=== PATIENT | male | born 1960 | race Caucasian/White ===

== ENCOUNTER 2019-07-25 16:32 | Observation (INO) | payer MEDICAID, OTHER ==
[~2019-07-25] VITALS: Ht 172.7 cm; Wt 72.4 kg
[~2019-07-25 16:32] MED LIST: QTP25T PO; QUET50TA PO; SERT50TA PO
[2019-07-25] MEDS ORDERED: RT-ALBUTEROL/IPRATROPIUM 3 ML (DUONEB) VIAL ONE (16:47)
[2019-07-25] MEDS ORDERED: RT-ALBUTEROL SULF 2.5 MG/3 ML PRE-MIX VIAL ONE (16:56)
[2019-07-25] MEDS ORDERED: LACTATED RINGERS 1,000 ML IV ONE (16:58)
[2019-07-25] MEDS ORDERED: RT-ALBUTEROL/IPRATROPIUM 3 ML (DUONEB) VIAL INH ONE ×2 (17:00→17:45)
[2019-07-25] MEDS ORDERED: RT-ALBUTEROL SULF 2.5 MG/3 ML PRE-MIX VIAL INH STA ×2 (17:01→17:38)
[2019-07-25 17:05] LABS: BASOPHILS % (AUTO) 0 % (0-10); EOSINOPHILS % (AUTO) 0 % (0-10); HEMATOCRIT 42 % (40-54); HEMOGLOBIN 14.7 G/DL (13.3-17.7); LYMPHOCYTES # (AUTO) 0.4 X 10^3 (1.0-4.0); LYMPHOCYTES % (AUTO) 5 % (12-44); MEAN CORPUSCULAR HEMOGLOBIN 32 PG (25-34); MEAN CORPUSCULAR HGB CONC 35 G/DL (32-36); MEAN CORPUSCULAR VOLUME 92 FL (80-99); MEAN PLATELET VOLUME 10.6 FL (7.4-10.4); MONOCYTES # (AUTO) 0.6 X 10^3 (0.0-1.0); MONOCYTES % (AUTO) 8 % (0-12); NEUTROPHILS # (AUTO) 6.6 X 10^3 (1.8-7.8); NEUTROPHILS % (AUTO) 87 % (42-75); PLATELET COUNT 192 10^3/uL (130-400); RED CELL DISTRIBUTION WIDTH 13.3 % (10.0-14.5); WHITE BLOOD COUNT 7.6 10^3/uL (4.3-11.0)
[2019-07-25 17:18] LABS: PROTHROMBIN TIME PATIENT 13.5 SEC (12.2-14.7)
--- NOTE | 2019-07-25 17:20 | ED General ---
General Chief Complaint: Respiratory Problems Stated Complaint: SOB,HEADACHE,COUGH,SORE THROAT Nursing Triage Note: PT AMBULATE TO ROOM 07 WITH C/O FEVER, COUGH, SOB. Nursing Sepsis Screen: Possible Sepsis Risk Source of Information: Patient Exam Limitations: No Limitations History of Present Illness Date Seen by Provider: Jul 25, 2019 Time Seen by Provider: 16:51 Initial Comments Here from clinic with report of shortness of breath, hypoxia, tachycardia and fever. Arrives significantly dyspneic with O2 sat in the 80s and one-word sentences. States that he started feeling bad yesterday. Does have long history of smoking. Went to the clinic today and was sent here due to the tachycardia and dyspnea. Not typically on oxygen. He has not been a breathing treatment today. No evaluation for influenza. Denies nausea, vomiting or diarrhea. Denies chest pain. Does have runny nose, cough and shortness of breath. No recent travel. Timing/Duration: 1-2 Days Severity: Severe Associated Systoms: No Chest Pain; Cough, Fever/Chills; No Nausea/Vomiting; Shortness of Air, Weakness Allergies and Home Medications Allergies Coded Allergies: No Known Drug Allergies (Unverified , 07/04/11) Home Medications Quetiapine Fumarate 50 Mg Tablet, 50 MG PO HS, (Reported) Sertraline Hcl 50 Mg Tablet, 50 MG PO DAILY, (Reported) Patient Home Medication List Home Medication List Reviewed: Yes Review of Systems Review of Systems Constitutional: see HPI, chills, fever, malaise, weakness EENTM: see HPI Respiratory: cough, short of breath, wheezing Cardiovascular: No chest pain, No syncope Gastrointestinal: no symptoms reported Genitourinary: no symptoms reported Musculoskeletal: no symptoms reported Skin: no symptoms reported Psychiatric/Neurological: No Symptoms Reported All Other Systems Reviewed Negative Unless Noted: Yes Past Qeihjmk-Nsjeuz-Uyhxgc Hx Past Med/Social Hx: Reviewed Nursing Past Med/Soc Hx Patient Social History Alcohol Use: Denies Use Recreational Drug Use: Yes (ALCOHOL, OD ON PILLS) Smoking Status: Current Everyday Smoker Type Used: Cigars 2nd Hand Smoke Exposure: No Recent Foreign Travel: No Contact w/Someone Who Travel: No Recent Infectious Disease Expo: No Physical Abuse: No Sexual Abuse: No Mistreated: No Fear: No Seasonal Allergies Seasonal Allergies: No Past Medical History Surgeries: No Respiratory: No Cardiac: Yes High Cholesterol, Hypertension Neurological: No Genitourinary: No Gastrointestinal: No Musculoskeletal: No Endocrine: No HEENT: Yes (BILAT RETINAL DETACHMENT) Cataract Loss of Vision: Denies Hearing Impairment: Denies Cancer: No Psychosocial: Yes Integumentary: No Blood Disorders: No Family Medical History Reviewed Nursing Family Hx No Pertinent Family Hx Physical Exam-Suspected Sepsis Physical Exam Vital Signs Vital Signs - First Documented 07/25/19 07/25/19 16:40 16:50 Temp 38.2 Pulse 126 Resp 22 B/P (MAP) 132/82 (99) Pulse Ox 88 O2 Delivery Room Air O2 Flow Rate 3.00 Capillary Refill : Less Than 3 Seconds Blood Pressure Mean: 168 Height, Weight, BMI Height: '" Weight: lbs. oz. kg; 25.00 BMI Method: General Appearance: WD/WN, Moderate Distress HEENT: PERRL/EOMI, Pharynx Normal, Other (rhinorrhea) Neck: Non Tender, Supple Respiratory: Decreased Breath Sounds, Respiratory Distress, Wheezing Cardiovascular: No Murmur, Tachycardia Gastrointestinal: Non Tender, Soft Back: Normal Inspection, No CVA Tenderness, No Vertebral Tenderness Extremity: Normal Range of Motion, Non Tender Neurologic/Psychiatric: Alert, Oriented x3 Skin: normal color, diaphoresis Focused Exam Lactate Level 07/25/19 16:55: Lactic Acid Level 1.53 Lactic Acid Level Laboratory Tests Test 07/25/19 16:55 Lactic Acid Level 1.53 MMOL/L (0.50-2.00) Progress/Results/Core Measures Suspected Sepsis Recent Fever Within 48 Hours: Yes Infection Criteria Present: Suspected New Infection New/Unexplained Altered Menta: No Sepsis Screen: Possible Sepsis Risk SIRS Temperature: Pulse: 131 Respiratory Rate: 37 Laboratory Tests 07/25/19 16:55: White Blood Count 7.6 Blood Pressure 196 /154 Mean: 168 07/25/19 16:55: Lactic Acid Level 1.53 Laboratory Tests 07/25/19 16:55: Creatinine 1.09, INR Comment 1.0, Platelet Count 192, Total Bilirubin 0.3 Results/Orders Lab Results Laboratory Tests Test 07/25/19 16:55 07/25/19 18:07 Range/Units White Blood Count 7.6 4.3-11.0 10^3/uL Red Blood Count 4.63 4.35-5.85 10^6/uL Hemoglobin 14.7 13.3-17.7 G/DL Hematocrit 42 40-54 % Mean Corpuscular Volume 92 80-99 FL Mean Corpuscular Hemoglobin 32 25-34 PG Mean Corpuscular Hemoglobin Concent 35 32-36 G/DL Red Cell Distribution Width 13.3 10.0-14.5 % Platelet Count 192 130-400 10^3/uL Mean Platelet Volume 10.6 H 7.4-10.4 FL Neutrophils (%) (Auto) 87 H 42-75 % Lymphocytes (%) (Auto) 5 L 12-44 % Monocytes (%) (Auto) 8 0-12 % Eosinophils (%) (Auto) 0 0-10 % Basophils (%) (Auto) 0 0-10 % Neutrophils # (Auto) 6.6 1.8-7.8 X 10^3 Lymphocytes # (Auto) 0.4 L 1.0-4.0 X 10^3 Monocytes # (Auto) 0.6 0.0-1.0 X 10^3 Eosinophils # (Auto) 0.0 0.0-0.3 10^3/uL Basophils # (Auto) 0.0 0.0-0.1 10^3/uL Neutrophils % (Manual) 81 % Lymphocytes % (Manual) 5 % Monocytes % (Manual) 11 % Eosinophils % (Manual) 0 % Basophils % (Manual) 1 % Band Neutrophils 2 % Blood Morphology Comment NORMAL Prothrombin Time 13.5 12.2-14.7 SEC INR Comment 1.0 0.8-1.4 Activated Partial Thromboplast Time 37 H 24-35 SEC Sodium Level 132 L 135-145 MMOL/L Potassium Level 4.1 3.6-5.0 MMOL/L Chloride Level 96 L 98-107 MMOL/L Carbon Dioxide Level 25 21-32 MMOL/L Anion Gap 11 5-14 MMOL/L Blood Urea Nitrogen 12 7-18 MG/DL Creatinine 1.09 0.60-1.30 MG/DL Estimat Glomerular Filtration Rate > 60 BUN/Creatinine Ratio 11 Glucose Level 115 H 70-105 MG/DL Lactic Acid Level 1.53 0.50-2.00 MMOL/L Calcium Level 9.6 8.5-10.1 MG/DL Corrected Calcium 9.2 8.5-10.1 MG/DL Total Bilirubin 0.3 0.1-1.0 MG/DL Aspartate Amino Transf (AST/SGOT) 30 5-34 U/L Alanine Aminotransferase (ALT/SGPT) 16 0-55 U/L Alkaline Phosphatase 56 40-136 U/L B-Type Natriuretic Peptide 19.9 <100.0 PG/ML Total Protein 7.9 6.4-8.2 GM/DL Albumin 4.5 3.2-4.5 GM/DL Micro Results Microbiology 07/25/19 Influenza Types A,B Antigen (HENRY) - Final, Complete My Orders Orders - KOFI YOUSIF MD Albuterol/Ipra Inhalation Soln (Duoneb I (07/25/19 16:47) Sputum Culture (07/25/19 16:58) Protime With Inr (07/25/19 16:58) Partial Thromboplastin Time (07/25/19 16:58) Vital Signs Adult Sepsis Patie Q15M (07/25/19 16:58) O2 (07/25/19 16:58) Remove Rings In Anticipation O (07/25/19 16:58) Ua Culture If Indicated (07/25/19 16:58) Lactated Ringers (Lr 1000 Ml Iv Solution (07/25/19 16:58) Albuterol Pre-Mix Nebs (Rt) (Proventil (07/25/19 17:01) Svn Small Volume Nebulizer (07/25/19 17:01) Albuterol Pre-Mix Nebs (Rt) (Proventil (07/25/19 16:56) Albuterol Pre-Mix Nebs (Rt) (Proventil (07/25/19 17:38) Albuterol/Ipra Inhalation Soln (Duoneb I (07/25/19 17:45) Svn Small Volume Nebulizer (07/25/19 17:38) Svn Small Volume Nebulizer (07/25/19 17:38) Oseltamivir 75 Mg Capsule (Tamiflu 75 (07/25/19 18:30) Solu-Medrol 125 Mg Iv (07/25/19 18:25) Medications Given in ED Current Medications Medications Dose Ordered Sig/Colton Route Start Time Stop Time Status Last Admin Dose Admin Albuterol/ Ipratropium 3 ml ONCE ONCE INH 07/25/19 17:00 07/25/19 17:01 DC 07/25/19 16:55 3 ML Albuterol/ Ipratropium 3 ml ONCE ONCE INH 07/25/19 17:45 07/25/19 17:46 DC 07/25/19 17:41 3 ML Lactated Ringer's 1,000 ml @ 0 mls/hr Q0M ONCE IV 07/25/19 16:58 07/25/19 17:00 DC 07/25/19 17:34 999 MLS/HR Vital Signs/I&O 07/25/19 07/25/19 07/25/19 07/25/19 16:40 16:50 17:15 17:16 Temp 38.2 37.5 Pulse 126 131 Resp 22 37 B/P (MAP) 132/82 (99) 196/154 (168) Pulse Ox 88 95 90 96 O2 Delivery Room Air Simple Mask Nasal Cannula Nasal Cannula O2 Flow Rate 3.00 10.00 10.00 07/25/19 17:39 Pulse Ox 96 O2 Delivery OxyMask O2 Flow Rate 10.00 Capillary Refill : Less Than 3 Seconds Blood Pressure Mean: 168 Progress Note : Progress Note Seen and evaluated. IV, labs, EKG, chest x-ray, blood cultures, lactic acid and LR 1 L bolus ordered. Duo neb ordered. 3 qewk-op-qoyu albuterol nebs ordered afterwards with the consideration for continuous one-hour treatment depending on progress. Monitor patient. 182: Patient did proceed to continuous one-hour treatment which is now complete. Patient noted to be influenza A positive. He is still requiring oxygen and states he's not completely at baseline. Tamiflu 75 mg by mouth. Solu-Medrol 125 mg IV. Admit, observation status. Case discussed with Dr. Baker who accepts patient for admission. Patient agrees with plan. ECG Initial ECG Impression Date: Jul 25, 2019 Initial ECG Impression Time: 16:58 Initial ECG Rate: 127 Initial ECG Rhythm: S.Tach Initial ECG Comparisson: Unchanged Comment Sinus tachycardia with left atrial abnormality. Rightward axis. No evidence of ST elevation KS. Similar to previous of 07/03/11. Interpreted by me. Diagnostic Imaging Diagonstic Imaging: Xray Plain Films/CT/US/NM/MRI: chest Comments No acute processes. Departure Communication (Admissions) Time/Spoke to Admitting Phy: 18:24 Impression Primary Impression: Influenza A Additional Impression: COPD with acute exacerbation Disposition: ADMITTED INPATIENT Condition: Stable Admissions Decision to Admit Reason: Admit from ER (General) Decision to Admit/Date: Jul 25, 2019 Time/Decision to Admit Time: 18:24 Departure-Patient Inst. Referrals: AMIE MONK MD (PCP) Primary Care Physician KOFI YOUSIF MD Jul 25, 2019 17:19
[2019-07-25 17:27] LABS: ALANINE AMINOTRANSFERASE 16 U/L (0-55); ALBUMIN 4.5 GM/DL (3.2-4.5); ALKALINE PHOSPHATASE 56 U/L (40-136); BILIRUBIN,TOTAL 0.3 MG/DL (0.1-1.0); BUN/CREATININE RATIO 11; CALCIUM 9.6 MG/DL (8.5-10.1); CARBON DIOXIDE 25 MMOL/L (21-32); CHLORIDE 96 MMOL/L (98-107); CREATININE SERUM 1.09 MG/DL (0.60-1.30); GFR ESTIMATED > 60; GLUCOSE 115 MG/DL (70-105); POTASSIUM 4.1 MMOL/L (3.6-5.0); SODIUM 132 MMOL/L (135-145); TOTAL PROTEIN 7.9 GM/DL (6.4-8.2)
--- NOTE | 2019-07-25 17:50 | Diagnostic Imaging Report ---
INDICATION: Fever and cough, shortness of breath. EXAMINATION: Chest, 07/25/2019. FINDINGS: Heart and pulmonary vasculature are normal. The lungs and pleural spaces are clear. No pneumothorax. IMPRESSION: No acute process. Dictated by: Dictated on workstation # [id number]
[2019-07-25] MEDS ORDERED: TRM50T PO (18:04)
[2019-07-25 18:08] LABS: BAND NEUTROPHILS 2 %; LYMPHOCYTES % (MANUAL) 5 %; MONOCYTES % (MANUAL) 11 %; NEUTROPHILS % (MANUAL) 81 %
[2019-07-25 18:09] LABS: BASOPHILS % (MANUAL) 1 %; EOSINOPHILS % (MANUAL) 0 %; RBC MORPH NORMAL
[2019-07-25 18:12] LABS: BILIRUBIN,URINE NEGATIVE (NEGATIVE); CLARITY,URINE CLEAR; COLOR,URINE YELLOW; GLUCOSE, URINE (UA) NEGATIVE (NEGATIVE); KETONES,URINE TRACE (NEGATIVE); LEUKOCYTE ESTERASE ,URINE NEGATIVE (NEGATIVE); NITRITE,URINE NEGATIVE (NEGATIVE); PH,URINE 5.5 (5-9); PROTEIN,URINE 1+ (NEGATIVE)
[2019-07-25] MEDS ORDERED: methylPREDNISolone 125 MG (Solu-MEDROL) VIAL IV STA (18:25)
[2019-07-25] MEDS ORDERED: OSELTAMIVIR 75 MG (TAMIFLU) CAPSULE PO ONE (18:30)
[2019-07-25] MEDS ORDERED: ACETAMINOPHEN 500 MG TAB (TYLENOL) PO ONE (18:30)
[2019-07-25 18:34] LABS: AMORPHOUS SEDIMENT,UR FEW AMOR URATES /LPF; BACTERIA,URINE TRACE /HPF; HYALINE CASTS, URINE 0-2 /LPF; RBC,URINE 0-2 /HPF; WBC,URINE 0-2 /HPF
--- NOTE | 2019-07-25 19:11 | NUR ---
ATTEMPT TO CALL PT REPORT. RN TO RETURN CALL.
[2019-07-25 20:10] VITALS: BP 133/72
--- NOTE | 2019-07-25 20:11 | NUR ---
Evy Barbosa admitted to room 433-1, with an admitting diagnosis of resp distress, COPD, flu A on 07/25/19 from [place] via stretcher, accompanied by staff . EVY BARBOSA introduced to surroundings, call light, bed controls, phone, TV, temperature control, lights, meal times, smoking policy, visitor policy, side rail policy, bathrooms and showers. Patient Rights given to patient in the handbook.EVY BARBOSA verbalizes understanding that [facility] is not responsible for the loss or damage to any personal effects or valuables that are kept in the patients posession during their hospitalization. Patient and/or family were informed about the Rapid Response Team and its purpose.
[2019-07-25] MEDS: NICOTINE 21 MG (NICODERM) PATCH TD ONE ×2 (20:27→22:59)
[2019-07-25] MEDS ORDERED: CATHETER FLUSH 10 ML SYR IV PRN (20:30)
[2019-07-25] MEDS ORDERED: diphenhydrAMINE 25 MG TAB (BENADRYL) PO PRN (20:30)
[2019-07-25] MEDS ORDERED: FLU QUADRIvalent (5+ YOA) 2019-2020 (AFLURIA) 0.5 ML IM ONE (20:30)
[2019-07-25] MEDS ORDERED: LOPERAMIDE 2 MG (IMODIUM) TABLET PO PRN (20:30)
[2019-07-25] MEDS ORDERED: ACETAMINOPHEN 500 MG TAB (TYLENOL) PO PRN (20:30)
[2019-07-25] MEDS ORDERED: DOCUSATE SODIUM 100 MG (COLACE) CAP PO PRN (20:30)
[2019-07-25] MEDS ORDERED: ALPRAZolam 0.25 MG (XANAX) TAB PO PRN (20:30)
[2019-07-25] MEDS ORDERED: ONDANSETRON 4 MG/2 ML (SDV) Z0FRAN IV PRN (20:30)
[2019-07-25] MEDS: ENOXAPARIN 40 MG/0.4 ML (LOVENOX) SYR SC SCH (20:38)
[2019-07-25] MEDS: LACTATED RINGERS 1,000 ML IV SCH (20:43)
[2019-07-25] MEDS: SENNA W/DOCUSATE (SENOKOT S) TABLET PO SCH (20:44)
[2019-07-25 21:13] VITALS: BP 144/82
[2019-07-25] MEDS ORDERED: RT-ALBUTEROL/IPRATROPIUM 3 ML (DUONEB) VIAL INH PRN (21:30)
[2019-07-25] MEDS ORDERED: NICOTINE 21 MG (NICODERM) PATCH ONE (22:53)
[2019-07-25] MEDS: methylPREDNISolone 40 MG/ML (Solu-MEDROL) VIAL IV SCH (23:55)
[2019-07-26] VITALS: BP 158/90
[2019-07-26] MEDS: RT-ALBUTEROL/IPRATROPIUM 3 ML (DUONEB) VIAL INH SCH ×4 (02:07→19:18)
[2019-07-26 04:00] VITALS: BP 144/67
[2019-07-26] MEDS: LACTATED RINGERS 1,000 ML IV SCH (04:42)
[2019-07-26] MEDS: methylPREDNISolone 40 MG/ML (Solu-MEDROL) VIAL IV SCH ×3 (05:32→18:22)
[2019-07-26] MEDS: OSELTAMIVIR 75 MG (TAMIFLU) CAPSULE PO SCH ×2 (06:06→18:22)
[2019-07-26] MEDS: ACETAMINOPHEN 325 MG TABLET PO PRN ×2 (06:50→19:31)
[2019-07-26 07:04] LABS: BASOPHILS % (AUTO) 0 % (0-10); EOSINOPHILS % (AUTO) 0 % (0-10); HEMATOCRIT 39 % (40-54); HEMOGLOBIN 12.9 G/DL (13.3-17.7); LYMPHOCYTES # (AUTO) 0.3 X 10^3 (1.0-4.0); LYMPHOCYTES % (AUTO) 7 % (12-44); MEAN CORPUSCULAR HEMOGLOBIN 31 PG (25-34); MEAN CORPUSCULAR HGB CONC 34 G/DL (32-36); MEAN CORPUSCULAR VOLUME 93 FL (80-99); MEAN PLATELET VOLUME 11.1 FL (7.4-10.4); MONOCYTES # (AUTO) 0.3 X 10^3 (0.0-1.0); MONOCYTES % (AUTO) 6 % (0-12); NEUTROPHILS # (AUTO) 4.5 X 10^3 (1.8-7.8); NEUTROPHILS % (AUTO) 87 % (42-75); PLATELET COUNT 185 10^3/uL (130-400); RED CELL DISTRIBUTION WIDTH 13.4 % (10.0-14.5); WHITE BLOOD COUNT 5.2 10^3/uL (4.3-11.0)
[2019-07-26 07:36] LABS: ALANINE AMINOTRANSFERASE 15 U/L (0-55); ALBUMIN 3.9 GM/DL (3.2-4.5); ALKALINE PHOSPHATASE 45 U/L (40-136); BILIRUBIN,TOTAL 0.3 MG/DL (0.1-1.0); BUN/CREATININE RATIO 14; CALCIUM 9.3 MG/DL (8.5-10.1); CARBON DIOXIDE 25 MMOL/L (21-32); CHLORIDE 102 MMOL/L (98-107); CREATININE SERUM 0.91 MG/DL (0.60-1.30); GFR ESTIMATED > 60; GLUCOSE 132 MG/DL (70-105); POTASSIUM 4.4 MMOL/L (3.6-5.0); SODIUM 138 MMOL/L (135-145); TOTAL PROTEIN 6.8 GM/DL (6.4-8.2)
[2019-07-26 08:00] VITALS: BP 158/74
[2019-07-26] MEDS: NICOTINE 21 MG (NICODERM) PATCH TD SCH (08:06)
[2019-07-26] MEDS: SENNA W/DOCUSATE (SENOKOT S) TABLET PO SCH ×2 (08:06→20:40)
[2019-07-26] MEDS: NICOTINE PATCH REMOVAL TP SCH (08:07)
[2019-07-26 12:00] VITALS: BP 155/78
--- NOTE | 2019-07-26 12:41 | History & Physical-Hospitalist ---
History of Present Illness HPI/Chief Complaint CC: Influenza A with AECOPD HPI: This is 59yoWM clinic patient of [facility] who smokes 2ppd who presents to the ER with hypoxia and dyspnea and found to have Flu A with AECOPD requiring O2 supplementation and IV steroids along with Nebs. Patient does not wear O2 at home and is trying to stop smoking. Patient feels better but still a bit wheezy and still requiring O2 so will need to continue aggressive treatment in order to manage his severe COPD which is a new dx and supportive care in order to resolve this acute and profound hypoxic issue. Source: patient Exam Limitations: no limitations Date Seen 07/26/19 Time Seen by a Provider: 12:00 Attending Physician Gretta Baker David F MD Referring Physician Date of Admission Jul 25, 2019 at 18:28 Home Medications & Allergies Home Medications Reviewed patient Home Medication Reconciliation performed by pharmacy medication reconciliations mining technician and/or nursing. Patients Allergies have been reviewed. Allergies Allergies Coded Allergies No Known Drug Allergies (Unverified07/04/11) Past Odmgxla-Kwyeet-Zfkcic Hx Past Med/Social Hx: Reviewed Nursing Past Med/Soc Hx, Reviewed and Corrections made Patient Social History Marrital Status: single Employed/Student: unemployed Alcohol Use: Denies Use Recreational Drug Use: Yes (ALCOHOL, OD ON PILLS) Smoking Status: Current Everyday Smoker Type Used: Cigars 2nd Hand Smoke Exposure: No Recent Foreign Travel: No Contact w/other who traveled: No Recent Infectious Disease Expo: No Seasonal Allergies Seasonal Allergies: No Past Medical History Cardiac: High Cholesterol, Hypertension HEENT: Cataract Loss of Vision: Denies Hearing Impairment: Denies History of Blood Disorders: No Family History Reviewed Nursing Family Hx No Pertinent Family Hx Review of Systems Constitutional: see HPI Respiratory: cough, dyspnea on exertion, wheezing Physical Exam Physical Exam Vital Signs Vital Signs - First Documented 07/25/19 07/25/19 07/25/19 16:40 16:50 21:13 Temp 38.2 Pulse 126 Resp 22 B/P (MAP) 132/82 (99) Pulse Ox 88 O2 Delivery Room Air O2 Flow Rate 3.00 FiO2 32 Capillary Refill : Less Than 3 Seconds Height, Weight, BMI Height: '" Weight: lbs. oz. kg; 24.27 BMI Method: General Appearance: No Apparent Distress Respiratory: Chest Non Tender, No Accessory Muscle Use, No Respiratory Distress, Decreased Breath Sounds, Wheezing Cardiovascular: Regular Rate, Rhythm, No Edema, No Gallop, No JVD, No Murmur, Normal Peripheral Pulses Gastrointestinal: Normal Bowel Sounds, No Organomegaly, No Pulsatile Mass, Non Tender, Soft Neurologic/Psychiatric: Alert, Oriented x3, No Motor/Sensory Deficits, Normal Mood/Affect Results Results/Procedures Labs Laboratory Tests 07/25/19 16:55 07/26/19 06:41 Patient resulted labs reviewed. Assessment/Plan Admission Diagnosis Assessment: Acute influenza A Acute hypoxia with respiratory insufficiency AECOPD Smoker HTN HLP Plan: IV steroids Nebs O2 Tamiflu Admission Status: Inpatient Order (span 2 midnights) Reason for Inpatient Admission: Continued O2 dependency Diagnosis/Problems Diagnosis/Problems (1) Influenza A Status: Acute (2) COPD with acute exacerbation Status: Acute Clinical Quality Measures DVT/VTE Risk/Contraindication: Risk Factor Score Per Nursin RFS Level Per Nursing on Admit: 3=High GRETTA BAKER DO Jul 26, 2019 12:41
[2019-07-26 16:08] VITALS: BP 116/66
[2019-07-26] MEDS: CALCIUM CARBONATE 500 MG (TUMS) TAB.CHEW PO PRN ×2 (16:32→19:31)
--- NOTE | 2019-07-26 16:35 | NUR ---
TUMS GIVEN FOR C/O HEART BURN,
[2019-07-26] MEDS: guaiFENesin/CODEINE (ROBITUSSIN AC) 10ML UDC PO PRN (20:41)
[2019-07-26] MEDS: QUEtiapine 25 MG (SEROquel) TAB IMMEDIATE RELEASE PO SCH (20:41)
[2019-07-26] MEDS: ENOXAPARIN 40 MG/0.4 ML (LOVENOX) SYR SC SCH (20:42)
[2019-07-27] VITALS: BP 151/87
[2019-07-27] MEDS: MELATONIN 3 MG TABLET PO PRN ×2 (00:38→23:10)
[2019-07-27] MEDS: methylPREDNISolone 40 MG/ML (Solu-MEDROL) VIAL IV SCH ×5 (00:38→23:10)
[2019-07-27] MEDS: RT-ALBUTEROL/IPRATROPIUM 3 ML (DUONEB) VIAL INH SCH ×4 (04:48→20:00)
[2019-07-27] MEDS: OSELTAMIVIR 75 MG (TAMIFLU) CAPSULE PO SCH ×2 (06:05→17:47)
[2019-07-27] MEDS: ACETAMINOPHEN 325 MG TABLET PO PRN (06:10)
[2019-07-27] MEDS: CALCIUM CARBONATE 500 MG (TUMS) TAB.CHEW PO PRN ×3 (06:49→23:10)
[2019-07-27 07:13] LABS: BASOPHILS % (AUTO) 0 % (0-10); EOSINOPHILS % (AUTO) 0 % (0-10); HEMATOCRIT 40 % (40-54); HEMOGLOBIN 13.4 G/DL (13.3-17.7); LYMPHOCYTES # (AUTO) 0.4 X 10^3 (1.0-4.0); LYMPHOCYTES % (AUTO) 6 % (12-44); MEAN CORPUSCULAR HEMOGLOBIN 32 PG (25-34); MEAN CORPUSCULAR HGB CONC 34 G/DL (32-36); MEAN CORPUSCULAR VOLUME 95 FL (80-99); MEAN PLATELET VOLUME 11.1 FL (7.4-10.4); MONOCYTES # (AUTO) 0.5 X 10^3 (0.0-1.0); MONOCYTES % (AUTO) 7 % (0-12); NEUTROPHILS # (AUTO) 5.8 X 10^3 (1.8-7.8); NEUTROPHILS % (AUTO) 87 % (42-75); PLATELET COUNT 204 10^3/uL (130-400); RED CELL DISTRIBUTION WIDTH 13.7 % (10.0-14.5); WHITE BLOOD COUNT 6.7 10^3/uL (4.3-11.0)
[2019-07-27 07:32] LABS: ALANINE AMINOTRANSFERASE 17 U/L (0-55); ALKALINE PHOSPHATASE 42 U/L (40-136); BILIRUBIN,TOTAL 0.3 MG/DL (0.1-1.0); BUN/CREATININE RATIO 16; CALCIUM 9.2 MG/DL (8.5-10.1); CARBON DIOXIDE 22 MMOL/L (21-32); CHLORIDE 102 MMOL/L (98-107); CREATININE SERUM 0.92 MG/DL (0.60-1.30); GFR ESTIMATED > 60; GLUCOSE 121 MG/DL (70-105); POTASSIUM 3.9 MMOL/L (3.6-5.0); SODIUM 139 MMOL/L (135-145); TOTAL PROTEIN 7.1 GM/DL (6.4-8.2)
[2019-07-27] MEDS: SERTRALINE 50 MG (ZOLOFT) TABLET PO SCH (07:57)
[2019-07-27] MEDS: SENNA W/DOCUSATE (SENOKOT S) TABLET PO SCH ×2 (07:58→20:09)
[2019-07-27] MEDS: NICOTINE 21 MG (NICODERM) PATCH TD SCH (07:58)
[2019-07-27] MEDS: NICOTINE PATCH REMOVAL TP SCH (07:59)
[2019-07-27 08:00] VITALS: BP 169/97
[2019-07-27] MEDS: guaiFENesin/CODEINE (ROBITUSSIN AC) 10ML UDC PO PRN (08:05)
[2019-07-27] MEDS: HYDROcodone/APAP 5 MG/325 MG (LORTAB) TAB PO PRN (08:05)
--- NOTE | 2019-07-27 11:21 | Diagnostic Imaging Report ---
INDICATION: Cough and fever. PA and lateral views were obtained. Comparison is made with prior examination from 07/25/2019. FINDINGS: The heart size, mediastinal configuration, and pulmonary vascularity are within normal limits. There is no pleural effusion, pneumothorax, or pneumonia. The osseous structures are unremarkable. IMPRESSION: No acute cardiopulmonary abnormality. Dictated by: Dictated on workstation # [id number]
[2019-07-27] MEDS ORDERED: HYDROCODONE/CHLOR 10MG/5 ML (TUSSIONEX SUSP) 5ML UDC PO ONE (14:00)
--- NOTE | 2019-07-27 14:01 | Progress Note - Hospitalist ---
Subjective HPI/CC On Admission Date Seen by Provider: Jul 27, 2019 Time Seen by Provider: 10:30 CC: Influenza A with AECOPD HPI: This is 59yoWM clinic patient of [facility] who smokes 2ppd who presents to the ER with hypoxia and dyspnea and found to have Flu A with AECOPD requiring O2 supplementation and IV steroids along with Nebs. Patient does not wear O2 at home and is trying to stop smoking. Patient feels better but still a bit wheezy and still requiring O2 so will need to continue aggressive treatment in order to manage his severe COPD which is a new dx and supportive care in order to resolve this acute and profound hypoxic issue. Subjective/Events-last exam Coughed a lot last night and again this morning Fever 101 this morning CXR no acute abnl Tamiflu maintained Lungs are clear Checked meds and labs Patient states he doesn't feel well Maintained on O2 Will check procalcitonin in case he needs abx coverage Review of Systems General: Fatigue Pulmonary: Dyspnea Focused Exam Lactate Level 07/25/19 16:55: Lactic Acid Level 1.53 Objective Exam Vital Signs Vital Signs Date Time Temp Pulse Resp B/P (MAP) Pulse Ox O2 Delivery O2 Flow Rate FiO2 07/27/19 08:10 96 Nasal Cannula 2.00 07/27/19 08:00 35.8 99 22 169/97 (121) 07/25/19 21:13 32 Capillary Refill : Less Than 3 Seconds General Appearance: No Apparent Distress, WD/WN, Chronically ill Respiratory: Chest Non Tender, Lungs Clear, No Accessory Muscle Use, No Respiratory Distress, Decreased Breath Sounds Cardiovascular: Regular Rate, Rhythm, No Edema, No Gallop, No JVD, No Murmur, Normal Peripheral Pulses Neurologic/Psychiatric: Alert, Oriented x3, No Motor/Sensory Deficits, Normal Mood/Affect Results/Procedures Lab Laboratory Tests 07/27/19 06:42 Patient resulted labs reviewed. Assessment/Plan Assessment and Plan Assess & Plan/Chief Complaint Assessment: Acute influenza A Acute hypoxia with respiratory insufficiency AECOPD Smoker HTN HLP Coughing with fever today and last night checking CXR and procalcitonin Plan: IV steroids Nebs O2 Tamiflu Checking CXR and procalcitonin may need abx coverage Diagnosis/Problems Diagnosis/Problems (1) Influenza A Status: Acute (2) COPD with acute exacerbation Status: Acute Clinical Quality Measures DVT/VTE Risk/Contraindication: Risk Factor Score Per Nursin RFS Level Per Nursing on Admit: 3=High SUSANA HAYES DO Jul 27, 2019 14:00
[2019-07-27] MEDS: BENZONATATE 100 MG (TESSALON) CAPSULE PO SCH ×2 (15:04→20:06)
[2019-07-27 17:00] VITALS: BP 167/75
[2019-07-27] MEDS: QUEtiapine 25 MG (SEROquel) TAB IMMEDIATE RELEASE PO SCH (20:06)
[2019-07-27] MEDS: ENOXAPARIN 40 MG/0.4 ML (LOVENOX) SYR SC SCH (20:07)
[2019-07-27] MEDS: HYDROCODONE/CHLOR 10MG/5 ML (TUSSIONEX SUSP) 5ML UDC PO SCH (20:07)
[2019-07-27 20:18] VITALS: BP 167/75
[2019-07-27 23:28] VITALS: BP 161/83
[2019-07-28 05:40] LABS: BASOPHILS % (AUTO) 0 % (0-10); EOSINOPHILS % (AUTO) 0 % (0-10); HEMATOCRIT 42 % (40-54); HEMOGLOBIN 13.9 G/DL (13.3-17.7); LYMPHOCYTES # (AUTO) 0.4 X 10^3 (1.0-4.0); LYMPHOCYTES % (AUTO) 7 % (12-44); MEAN CORPUSCULAR HEMOGLOBIN 32 PG (25-34); MEAN CORPUSCULAR HGB CONC 33 G/DL (32-36); MEAN CORPUSCULAR VOLUME 95 FL (80-99); MONOCYTES # (AUTO) 0.7 X 10^3 (0.0-1.0); MONOCYTES % (AUTO) 11 % (0-12); NEUTROPHILS # (AUTO) 5.4 X 10^3 (1.8-7.8); NEUTROPHILS % (AUTO) 82 % (42-75); PLATELET COUNT 218 10^3/uL (130-400); RED CELL DISTRIBUTION WIDTH 13.6 % (10.0-14.5); WHITE BLOOD COUNT 6.5 10^3/uL (4.3-11.0)
[2019-07-28] MEDS: methylPREDNISolone 40 MG/ML (Solu-MEDROL) VIAL IV SCH ×2 (06:02→12:08)
[2019-07-28 06:03] LABS: ALANINE AMINOTRANSFERASE 18 U/L (0-55); ALBUMIN 4.1 GM/DL (3.2-4.5); ALKALINE PHOSPHATASE 41 U/L (40-136); BILIRUBIN,TOTAL 0.4 MG/DL (0.1-1.0); BUN/CREATININE RATIO 16; CARBON DIOXIDE 27 MMOL/L (21-32); CHLORIDE 101 MMOL/L (98-107); CREATININE SERUM 0.96 MG/DL (0.60-1.30); GFR ESTIMATED > 60; GLUCOSE 122 MG/DL (70-105); POTASSIUM 5.4 MMOL/L (3.6-5.0); SODIUM 139 MMOL/L (135-145); TOTAL PROTEIN 7.2 GM/DL (6.4-8.2)
[2019-07-28] MEDS: OSELTAMIVIR 75 MG (TAMIFLU) CAPSULE PO SCH (06:03)
[2019-07-28 08:00] VITALS: BP 146/83
[2019-07-28] MEDS ORDERED: TRAZ-227 PO (08:27)
[2019-07-28] MEDS ORDERED: QUET300T2 PO (08:27)
[2019-07-28] MEDS ORDERED: BRIM5DRO OU (08:27)
[2019-07-28] MEDS ORDERED: HYDR50CA3 PO (08:27)
[2019-07-28] MEDS ORDERED: SERT100T8 PO (08:27)
[2019-07-28] MEDS ORDERED: OMEP20CA18 PO (08:38)
[2019-07-28] MEDS ORDERED: IBUP-2473 PO (08:41)
--- NOTE | 2019-07-28 08:46 | NUR ---
SPOKE WITH THE PT, WENT THRU THE EXT MED HISTORY AND CALLED [facility] (ALSO SPOKE WITH NURSE ABOUT THE REPOSITORY) TO COMPLETE THE MED REC. THE PT SAID HE WAS TAKING METOPROLOL SUCC 25, LOVASTATIN 20MG AND LISINOPRIL (HE DIDNT KNOW THE DOSE) BUT THE PHARMACY AND THE REPOSITORY DOESNT SHOW THEY HAVE FILLED THIS IN A TIMELY FASHION. WHEN I QUESTIONED THE PT ON THIS HE WAS NOT SURE AND SAID HE WAS TAKING EVERYDAY. I LEFT THESE OFF THE MED REC SINCE NO ONE HAD DISPENSED SINCE AT LEAST APRIL 2019. LAST FILL DATES NOT SHOWN ON THE EXT MED HISTORY: 07-03-2019 SEROQUEL 300MG #60/30DS ([facility]) 05-08-19 OMEPRAZOLE 20MG #90/90DS (REPOSITORY) OTC MEDS: IBUPROFEN PRN
[2019-07-28] MEDS ORDERED: RT-ALBUTEROL/IPRATROPIUM 3 ML (DUONEB) VIAL INH SCH (09:00)
[2019-07-28] MEDS: SENNA W/DOCUSATE (SENOKOT S) TABLET PO SCH (09:18)
[2019-07-28] MEDS: SERTRALINE 50 MG (ZOLOFT) TABLET PO SCH (09:18)
[2019-07-28] MEDS: HYDROCODONE/CHLOR 10MG/5 ML (TUSSIONEX SUSP) 5ML UDC PO SCH (09:18)
[2019-07-28] MEDS: BENZONATATE 100 MG (TESSALON) CAPSULE PO SCH ×2 (09:18→12:08)
[2019-07-28] MEDS: NICOTINE 21 MG (NICODERM) PATCH TD SCH (09:22)
[2019-07-28] MEDS: HYDROcodone/APAP 5 MG/325 MG (LORTAB) TAB PO PRN (09:24)
[2019-07-28] MEDS: NICOTINE PATCH REMOVAL TP SCH (09:47)
[2019-07-28] MEDS ORDERED: PRED10TA22 PO (10:15)
[2019-07-28] MEDS ORDERED: Guaifenesin/Codeine PO (10:15)
[2019-07-28] MEDS ORDERED: NICO1PAT34 TD (10:15)
[2019-07-28] MEDS ORDERED: OSLT75C PO (10:15)
--- NOTE | 2019-07-28 10:16 | Discharge Summary ---
Discharge Summary Hospital Course Problems/Dx: (1) Influenza A Status: Acute (2) COPD with acute exacerbation Status: Acute Hospital Course Date of Admission: Jul 25, 2019 at 18:28 Admission Diagnosis : Family Physician/Provider: Ramin Tirado MD Date of Discharge: 07/28/19 Discharge Diagnosis: Influenza A, AECOPD, smoker Hospital Course: Hospital Course: Pt had an uneventful hospital course for four days. He was admitted for Influenza A and exacerbation of COPD, Procalcitonin returned that was within normal limits and there was no evidence of any bacterial infection so IV steroids were maintained along with nebulizer treatments and oxygen supplementation, and Tamiflu. Overall he did very well and at time of DC he was doing very well. We will check him for home O2 but he was discharged in improved condition. Labs and Pending Lab Test: Laboratory Tests 07/28/19 05:10: White Blood Count 6.5, Red Blood Count 4.39, Hemoglobin 13.9, Hematocrit 42, Mean Corpuscular Volume 95, Mean Corpuscular Hemoglobin 32, Mean Corpuscular Hemoglobin Concent 33, Red Cell Distribution Width 13.6, Platelet Count 218, Mean Platelet Volume 11.0H, Neutrophils (%) (Auto) 82H, Lymphocytes (%) (Auto) 7L, Monocytes (%) (Auto) 11, Eosinophils (%) (Auto) 0, Basophils (%) (Auto) 0, Neutrophils # (Auto) 5.4, Lymphocytes # (Auto) 0.4L, Monocytes # (Auto) 0.7, Eosinophils # (Auto) 0.0, Basophils # (Auto) 0.0, Sodium Level 139, Potassium Level 5.4H, Chloride Level 101, Carbon Dioxide Level 27, Anion Gap 11, Blood Urea Nitrogen 15, Creatinine 0.96, Estimat Glomerular Filtration Rate > 60, BUN/Creatinine Ratio 16, Glucose Level 122H, Calcium Level 10.0, Corrected Calcium 9.9, Total Bilirubin 0.4, Aspartate Amino Transf (AST/SGOT) 31, Alanine Aminotransferase (ALT/SGPT) 18, Alkaline Phosphatase 41, Total Protein 7.2, Albumin 4.1 Microbiology 07/25/19 Influenza Types A,B Antigen (HENRY) - Final, Complete 07/25/19 Blood Culture - Preliminary, Resulted No growth Home Meds Active Prednisone 10 Mg Tab.ds.pk 10 Mg PO DAILY Take 6 tabs(60mg)daily,decrease by 1 tab(10MG)daily. Tamiflu (Oseltamivir Phosphate) 75 Mg Cap 75 Mg PO Q12H 2 Days [Guaifenesin/Codeine] 10 ML Syrp 10 Ml PO Q4H PRN Nicoderm Cq (Nicotine) 1 Each Patch.td24 21 Mg TD DAILY Reported Ibuprofen 200 Mg Tablet 400 Mg PO Q8H PRN Omeprazole 20 Mg Capsule.dr 20 Mg PO DAILY Seroquel (Quetiapine Fumarate) 300 Mg Tablet 300 Mg PO BID Combigan Eye Drops (Brimonidine Tartrate/Timolol) 5 Ml Drops 1 Drop OU BID Trazodone HCl 100 Mg Tablet 50-100 Mg PO HS Sertraline HCl 100 Mg Tablet 200 Mg PO HS Hydroxyzine Pamoate 50 Mg Capsule 50 Mg PO DAILY PRN Assessment/Pt Instructions [facility] 1 week Discharge Planning: <30 minutes discharge planning Discharge Instructions Pneumonia Vaccine Order Indica: Yes Discharge Physical Examination Vital Signs Vital Signs Date Time Temp Pulse Resp B/P (MAP) Pulse Ox O2 Delivery O2 Flow Rate FiO2 07/28/19 07:42 92 Room Air 2.00 07/28/19 01:13 37.7 07/27/19 23:28 90 22 161/83 (109) 07/27/19 20:18 21 General Appearance: No Apparent Distress, WD/WN Respiratory: Chest Non Tender, Lungs Clear, Normal Breath Sounds, No Accessory Muscle Use, No Respiratory Distress Cardiovascular: Regular Rate, Rhythm, No Edema, No Gallop, No JVD, No Murmur, Normal Peripheral Pulses Neurologic/Psychiatric: Alert, Oriented x3, No Motor/Sensory Deficits, Normal Mood/Affect Allergies: Coded Allergies: No Known Drug Allergies (Unverified , 07/04/11) Discharge Summary Date of Admission Jul 25, 2019 at 18:28 Date of Discharge Discharge Date: Jul 28, 2019 Admission Diagnosis Assessment: Acute influenza A Acute hypoxia with respiratory insufficiency AECOPD Smoker HTN HLP Plan: IV steroids Nebs O2 Tamiflu Discharge Diagnosis Assessment: Acute influenza A Acute hypoxia with respiratory insufficiency AECOPD Smoker HTN HLP Coughing with fever today and last night checking CXR and procalcitonin Plan: IV steroids Nebs O2 Tamiflu Checking CXR and procalcitonin may need abx coverage (1) Influenza A Status: Acute (2) COPD with acute exacerbation Status: Acute Clinical Quality Measures DVT/VTE Risk/Contraindication: Risk Factor Score Per Nursin RFS Level Per Nursing on Admit: 3=High SUSANA HAYES DO Jul 28, 2019 10:16
[2019-07-28] MEDS ORDERED: RELABEL FOR HOME USE MC SCH (11:00)
[2019-07-28] MEDS ORDERED: OSELTAMIVIR 75 MG (TAMIFLU) CAPSULE PO SCH (11:00)
[2019-07-28] MEDS ORDERED: FLU QUADRIvalent (5+ YOA) 2019-2020 (AFLURIA) 0.5 ML IM ONE (11:55)
[2019-07-28 14:06] VITALS: BP 146/83
[2019-07-28] MEDS: CALCIUM CARBONATE 500 MG (TUMS) TAB.CHEW PO PRN (14:57)
--- NOTE | 2019-07-28 15:48 | NUR ---
Pastoral care visit.
--- NOTE | 2019-07-28 16:22 | NUR ---
patient dint qualify for home oxygen per RT.
--- NOTE | 2019-07-28 16:32 | NUR ---
patient was on RA with O2 sat 94%; patient walked for 6 mins and O2 sat did not drop below 93% (ranged from 93-95%); HR ranged from 93-104; patient walked a total of 960 ft. patient did not require any O2 at rest or walking
[2019-07-28] MEDS ORDERED: SERTRALINE 100 MG (ZOLOFT) TAB PO SCH (21:00)
[2019-07-28] MEDS ORDERED: QUEtiapine 200 MG (SEROquel) TAB IMMEDIATE RELEASE PO SCH (21:00)
== END 2019-07-28 16:42 | disposition home or self-care (01) ==
LOC: EDUNIT# 16:32 → ER 16:34 → 4TH 18:28
PROVIDERS: ADMIT Internal Medicine; ATTEND Internal Medicine
DX: J10.1 Influenza due to other identified influenza virus with other respiratory manifestations (principal); J44.1 Chronic obstructive pulmonary disease with (acute) exacerbation; E78.00 Pure hypercholesterolemia, unspecified; I10 Essential (primary) hypertension; F17.210 Nicotine dependence, cigarettes, uncomplicated; Z79.899 Other long term (current) drug therapy
CPT/HCPCS: 36415; 71045; 71046; 80053; 81000; 82962; 83605; 83880; 84145; 85007; 85025; 85027; 85610; 85730; 87040; 87804; 93005; 94640; 94644; 94664; 94760; 94761

== ENCOUNTER 2019-08-02 09:21 | Inpatient (IN) | payer MEDICAID ==
[2019-08-02] VITALS (18 sets, daily range): BP systolic 76–210; BP diastolic 54–124
[~2019-08-02] VITALS: Ht 172.7 cm; Wt 62.3 kg
[~2019-08-02 09:21] MED LIST changes: +BRIM5DRO OU; +Guaifenesin/Codeine PO; +HYDR50CA3 PO; +IBUP-2473 PO; +NICO1PAT34 TD; +OMEP20CA18 PO; +OSLT75C PO; +PRED10TA22 PO; +QUET300T2 PO; +SERT100T8 PO; +TRAZ-227 PO; +TRM50T PO
[2019-08-02] MEDS ORDERED: DEXAMETHASONE 4 MG/ML SDV (DECADRON) ONE (09:26)
[2019-08-02] MEDS ORDERED: RT-ALBUTEROL/IPRATROPIUM 3 ML (DUONEB) VIAL ONE ×2 (09:27→14:06)
[2019-08-02] MEDS ORDERED: RT-ALBUTEROL SULF 2.5 MG/3 ML PRE-MIX VIAL ONE (09:27)
[2019-08-02] MEDS ORDERED: methylPREDNISolone 125 MG (Solu-MEDROL) VIAL IV STA (09:29)
[2019-08-02] MEDS ORDERED: RT-ALBUTEROL SULF 2.5 MG/3 ML PRE-MIX VIAL INH STA (09:29)
[2019-08-02] MEDS ORDERED: DEXAMETHASONE 4 MG/ML SDV (DECADRON) IH ONE (09:30)
[2019-08-02] MEDS ORDERED: RT-ALBUTEROL/IPRATROPIUM 3 ML (DUONEB) VIAL INH ONE (09:30)
[2019-08-02] MEDS ORDERED: methylPREDNISolone 125 MG (Solu-MEDROL) VIAL IVP ONE (09:30)
[2019-08-02] MEDS ORDERED: CEFEPIME INJECTION 2,000 MG in WATER (STERILE) FOR INJECTION 10 ML IV ONE (09:30)
[2019-08-02 09:56] LABS: BASOPHILS % (AUTO) 0 % (0-10); EOSINOPHILS # (AUTO) 0.2 10^3/uL (0.0-0.3); EOSINOPHILS % (AUTO) 1 % (0-10); HEMATOCRIT 42 % (40-54); HEMOGLOBIN 14.4 G/DL (13.3-17.7); LYMPHOCYTES # (AUTO) 0.7 X 10^3 (1.0-4.0); LYMPHOCYTES % (AUTO) 5 % (12-44); MEAN CORPUSCULAR HEMOGLOBIN 31 PG (25-34); MEAN CORPUSCULAR HGB CONC 34 G/DL (32-36); MEAN CORPUSCULAR VOLUME 92 FL (80-99); MEAN PLATELET VOLUME 10.1 FL (7.4-10.4); MONOCYTES # (AUTO) 1.3 X 10^3 (0.0-1.0); MONOCYTES % (AUTO) 9 % (0-12); NEUTROPHILS % (AUTO) 85 % (42-75); PLATELET COUNT 332 10^3/uL (130-400); RED CELL DISTRIBUTION WIDTH 13.1 % (10.0-14.5); WHITE BLOOD COUNT 14.2 10^3/uL (4.3-11.0)
[2019-08-02] MEDS ORDERED: VANCOMYCIN INJECTION 750 MG in NS (IVPB) 250 ML IV SCH (10:00)
--- NOTE | 2019-08-02 10:00 | NUR ---
Arian, RT, Lashell, in room to intubate pt 0939 BP 143/91, pulse 124 0943 Versed 4 mg given by Lashell, RN 0944 Trevor 100 mg given by OTIS Lobo Pt bagged by RT 0944 Succs 100 mg given by Lashell, RN 0946 BP 150/130, O2 82% 0947 tube in by RT; + color change, O2 98%, 22 cm at lip
[2019-08-02 10:06] LABS: BILIRUBIN,URINE NEGATIVE (NEGATIVE); CLARITY,URINE CLEAR; COLOR,URINE YELLOW; GLUCOSE, URINE (UA) TRACE (NEGATIVE); KETONES,URINE NEGATIVE (NEGATIVE); LEUKOCYTE ESTERASE ,URINE NEGATIVE (NEGATIVE); NITRITE,URINE NEGATIVE (NEGATIVE); PROTEIN,URINE 1+ (NEGATIVE)
[2019-08-02 10:07] LABS: PROTHROMBIN TIME PATIENT 13.5 SEC (12.2-14.7)
[2019-08-02 10:13] LABS: RBC,URINE 0-2 /HPF
[2019-08-02 10:14] LABS: BACTERIA,URINE NEGATIVE /HPF; WBC,URINE RARE /HPF
[2019-08-02 10:15] LABS: ALANINE AMINOTRANSFERASE 18 U/L (0-55); ALBUMIN 3.9 GM/DL (3.2-4.5); ALKALINE PHOSPHATASE 56 U/L (40-136); BILIRUBIN,TOTAL 0.5 MG/DL (0.1-1.0); BUN/CREATININE RATIO 15; CALCIUM 9.2 MG/DL (8.5-10.1); CARBON DIOXIDE 23 MMOL/L (21-32); CHLORIDE 102 MMOL/L (98-107); CREATININE SERUM 1.08 MG/DL (0.60-1.30); GFR ESTIMATED > 60; GLUCOSE 119 MG/DL (70-105); SODIUM 138 MMOL/L (135-145); TOTAL PROTEIN 7.7 GM/DL (6.4-8.2)
[2019-08-02] MEDS ORDERED: VANCOMYCIN 1500 MG/NS 500 ML IVPB IV NR ×2 (10:15)
[2019-08-02 10:19] LABS: NEUTROPHILS % (MANUAL) 83 %
[2019-08-02 10:20] LABS: BAND NEUTROPHILS 1 %; EOSINOPHILS % (MANUAL) 1 %; LYMPHOCYTES % (MANUAL) 5 %; MONOCYTES % (MANUAL) 10 %; RBC MORPH NORMAL
[2019-08-02] MEDS ORDERED: NS IV 1000 ML 1,000 ML IV PRN (10:21)
[2019-08-02] MEDS: NS IV 1000 ML 1,000 ML IV SCH ×3 (10:26→11:38)
--- NOTE | 2019-08-02 10:28 | Diagnostic Imaging Report ---
INDICATION: Tube placement. COMPARISON: 07/27/2019. DISCUSSION: Single view of the chest and upper abdomen was obtained. Enteric tube is coiled in the gastric fundus. Endotracheal tube is in good position within the mid trachea. Normal heart size. Mild interstitial thickening is stable, possibly chronic. IMPRESSION: 1. Endotracheal tube and enteric tube are in good position. Dictated by: Dictated on workstation # [id number]
[2019-08-02] MEDS: PROPOFOL DRIP (ICU) 100 ML IV SCH ×3 (10:37→20:11)
--- NOTE | 2019-08-02 10:58 | NUR ---
Pt's rectal temp 100.7. Reported to Arian.
--- NOTE | 2019-08-02 10:58 | ED Respiratory ---
General Chief Complaint: Respiratory Problems Stated Complaint: ACUTE RESP FAILURE, SEVERE SEPSIS, INFLUENZA A, PN Nursing Triage Note: Pt to ED with SOB. Pt was recently diagnosed with flu A. Pt sitting in tripod position to breathe. Source: patient, old records (ALL PMH IS FROM OLD CHART) History of Present Illness Date Seen by Provider: Aug 02, 2019 Time Seen by Provider: 09:20 Initial Comments PT ARRIVES VIA POV FROM HOME, WITH HIS MOTHER C/O SEVERE SHORTNESS OF BREATH PT WAS HOSPITALIZED 1 WEEK AGO, AND WAS ON VENTILATOR--DX WITH INFLUENZA A. COMPLETED TAMIFLU WAS DISMISSED ON Sunday07/28/19 WITH RX FOR AN INHALER PT HAS HAD INCREASED SHORTNESS OF BREATH SINCE LAST NIGHT HAS CONTINUED TO HAVE SUBJECTIVE FEVER/SWEATS/CHILLS STILL WITH PRODUCTIVE COUGH WITH COLORED SPUTUM PT IN SEVERE RESPIRATORY DISTRESS ON ARRIVAL, IN TRIPOD POSITION, PALE AND PROFUSELY DIAPHORETIC, ONLY ABLE TO TALK IN 1-2 WORD PHRASES, WITH INITIAL O2 SATS IN 70'S PT STATES HE DOES NOT HAVE A HISTORY OF ANY RESPIRATORY PROBLEMS, BUT IS A SMOKER--2 PPD. PCP: DR. MONK Allergies and Home Medications Allergies Coded Allergies: No Known Drug Allergies (Unverified , 07/04/11) Home Medications Brimonidine Tartrate/Timolol 5 Ml Drops, 1 DROP OU BID, (Reported) Hydroxyzine Pamoate 50 Mg Capsule, 50 MG PO DAILY PRN for ANXIETY, (Reported) Ibuprofen 200 Mg Tablet, 400 MG PO Q8H PRN for PAIN-MILD (1-4), (Reported) Nicotine 1 Each Patch.td24, 21 MG TD DAILY Prescribed by: SUSANA HAYES on 07/28/19 1015 Omeprazole 20 Mg Capsule.dr, 20 MG PO DAILY, (Reported) Oseltamivir Phosphate 75 Mg Cap, 75 MG PO Q12H Prescribed by: SUSANA HAYES on 07/28/19 1015 Prednisone 10 Mg Tab.ds.pk, 10 MG PO DAILY Take 6 tabs(60mg)daily,decrease by 1 tab(10MG)daily. Prescribed by: SUSANA HAYES on 07/28/19 1015 Quetiapine Fumarate 300 Mg Tablet, 300 MG PO BID, (Reported) Sertraline HCl 100 Mg Tablet, 200 MG PO HS, (Reported) Trazodone HCl 100 Mg Tablet, 50-100 MG PO HS, (Reported) [Guaifenesin/Codeine] 10 ML SYRP, 10 ML PO Q4H PRN for COUGH Prescribed by: SUSANA HAYES on 07/28/19 1015 Patient Home Medication List Home Medication List Reviewed: Yes Review of Systems Review of Systems Constitutional: see HPI, chills, diaphoresis, fever Respiratory: see HPI, cough, dyspnea on exertion, orthopnea, phlegm, short of breath, wheezing Cardiovascular: No chest pain Past Sleezct-Vyzyyo-Dduddd Hx Past Med/Social Hx: Reviewed and Corrections made Patient Social History Alcohol Use: Past History (HISTORY OF ALCOHOL ABUSE) Recreational Drug Use: Yes (OVERDOSED ON ALCOHOL AND RX PILLS) Drug of Choice: OVERDOSED ON ALCOHOL AND RX MEDICATIONS Smoking Status: Current Everyday Smoker (2 PPD) Type Used: Cigars, Cigarettes 2nd Hand Smoke Exposure: No Recent Foreign Travel: No Contact w/Someone Who Travel: No Recent Infectious Disease Expo: No Recent Hopitalizations: Yes Seasonal Allergies Seasonal Allergies: No Past Medical History Surgeries: No Respiratory: Yes (INFLUENZA A REQUIRING VENTILATION 07/25/19, READMITTED 08/02/19 & INTUBATED) Cardiac: Yes High Cholesterol, Hypertension Neurological: No Genitourinary: No Gastrointestinal: No Musculoskeletal: No Endocrine: No HEENT: Yes (BILAT RETINAL DETACHMENT) Cataract Loss of Vision: Denies Hearing Impairment: Denies Cancer: No Psychosocial: Yes (OVERDOSED ON ALCOHOL AND RX MEDICATIONS AT LEAST TWICE-2007 AND 2011) Anxiety, Suicide Attempts, Depression Integumentary: No Blood Disorders: No Family Medical History No Pertinent Family Hx Physical Exam Vital Signs - First Documented 08/02/19 08/02/19 09:21 09:22 Temp 37.5 Pulse 137 Resp 27 B/P (MAP) 144/76 (98) Pulse Ox 88 O2 Delivery Room Air O2 Flow Rate 4.00 Capillary Refill : Less Than 3 Seconds Height: '" Weight: lbs. oz. kg; 25.00 BMI Method: General Appearance: severe distress, other (IN TRIPOD POSITION; PALE AND DIAPHORETIC; CAN ONLY TALK IN 1-2 WORD PHRASES; ) HEENT: other (NASAL CONGESTION) Respiratory: respiratory distress, decreased breath sounds, accessory muscle use, rales, wheezing, other (DIFFUSE WHEEZING AND RALES BILATERALLY) Cardiovascular: no edema, no murmur, tachycardia (130'S) Gastrointestinal: non tender, soft Extremities: normal inspection, no pedal edema, normal capillary refill Neurologic/Psychiatric: game artist II-XII nml as tested, no motor/sensory deficits, alert, oriented x 3 Skin: diaphoresis, pallor, other (VERY WARM) Focused Exam Sepsis Stage: Severe Sepsis Lactate Level 08/02/19 09:32: Lactic Acid Level 1.35 Time of Focused Exam: 10:45 Respiratory: Wheezing, Other (POST INTUBATION) Cardiovascular: Tachycardia Capillary Refill: Less Than 3 Seconds Peripheral Pulses: 3+ Dorsalis Pedis (R), 3+ Left Dors-Pedis (L), 3+ Radial Pulses (R), 3+ Radial Pulses (L) Skin: damp (WARM), pallor Lactic Acid Level Laboratory Tests Test 08/02/19 09:32 Lactic Acid Level 1.35 MMOL/L (0.50-2.00) Within 3hrs of presentation: Admin fluids, Admin ABX, Blood cultures prior to ABX's, Focus exam, Lactate level Procedures/Interventions Date of ETT Placement: Aug 02, 2019 Intubation Method: orotracheal Tube Size: 8.0 Medications: Propofol, Succinylcholine, Versed Positive End Tide CO2: Yes Breath Sounds after Intubation: bilateral-equal Intubation Complications: no complications Post Intubation Xray: Yes Progress/Results/Core Measures Suspected Sepsis Recent Fever Within 48 Hours: No Infection Criteria Present: None New/Unexplained Altered Menta: No Sepsis Screen: No Definite Risk SIRS Temperature: Pulse: 127 Respiratory Rate: 27 Laboratory Tests 08/02/19 09:32: White Blood Count 14.2H Blood Pressure 203 /129 Mean: 153 08/02/19 09:32: Lactic Acid Level 1.35 Laboratory Tests 08/02/19 09:32: Creatinine 1.08, INR Comment 1.0, Platelet Count 332, Total Bilirubin 0.5 Results/Orders Lab Results Laboratory Tests Test 08/02/19 09:32 08/02/19 09:54 Range/Units White Blood Count 14.2 H 4.3-11.0 10^3/uL Red Blood Count 4.58 4.35-5.85 10^6/uL Hemoglobin 14.4 13.3-17.7 G/DL Hematocrit 42 40-54 % Mean Corpuscular Volume 92 80-99 FL Mean Corpuscular Hemoglobin 31 25-34 PG Mean Corpuscular Hemoglobin Concent 34 32-36 G/DL Red Cell Distribution Width 13.1 10.0-14.5 % Platelet Count 332 130-400 10^3/uL Mean Platelet Volume 10.1 7.4-10.4 FL Neutrophils (%) (Auto) 85 H 42-75 % Lymphocytes (%) (Auto) 5 L 12-44 % Monocytes (%) (Auto) 9 0-12 % Eosinophils (%) (Auto) 1 0-10 % Basophils (%) (Auto) 0 0-10 % Neutrophils # (Auto) 12.0 H 1.8-7.8 X 10^3 Lymphocytes # (Auto) 0.7 L 1.0-4.0 X 10^3 Monocytes # (Auto) 1.3 H 0.0-1.0 X 10^3 Eosinophils # (Auto) 0.2 0.0-0.3 10^3/uL Basophils # (Auto) 0.0 0.0-0.1 10^3/uL Neutrophils % (Manual) 83 % Lymphocytes % (Manual) 5 % Monocytes % (Manual) 10 % Eosinophils % (Manual) 1 % Band Neutrophils 1 % Blood Morphology Comment NORMAL Prothrombin Time 13.5 12.2-14.7 SEC INR Comment 1.0 0.8-1.4 Activated Partial Thromboplast Time 23 L 24-35 SEC Sodium Level 138 135-145 MMOL/L Potassium Level 4.0 3.6-5.0 MMOL/L Chloride Level 102 98-107 MMOL/L Carbon Dioxide Level 23 21-32 MMOL/L Anion Gap 13 5-14 MMOL/L Blood Urea Nitrogen 16 7-18 MG/DL Creatinine 1.08 0.60-1.30 MG/DL Estimat Glomerular Filtration Rate > 60 BUN/Creatinine Ratio 15 Glucose Level 119 H 70-105 MG/DL Lactic Acid Level 1.35 0.50-2.00 MMOL/L Calcium Level 9.2 8.5-10.1 MG/DL Corrected Calcium 9.3 8.5-10.1 MG/DL Total Bilirubin 0.5 0.1-1.0 MG/DL Aspartate Amino Transf (AST/SGOT) 17 5-34 U/L Alanine Aminotransferase (ALT/SGPT) 18 0-55 U/L Alkaline Phosphatase 56 40-136 U/L Total Protein 7.7 6.4-8.2 GM/DL Albumin 3.9 3.2-4.5 GM/DL Procalcitonin 0.10 H <0.10 NG/ML Urine Color YELLOW Urine Clarity CLEAR Urine pH 7.0 5-9 Urine Specific [place] >=1.030 1.016-1.022 Urine Protein 1+ H NEGATIVE Urine Glucose (UA) TRACE H NEGATIVE Urine Ketones NEGATIVE NEGATIVE Urine Nitrite NEGATIVE NEGATIVE Urine Bilirubin NEGATIVE NEGATIVE Urine Urobilinogen 0.2 < = 1.0 MG/DL Urine Leukocyte Esterase NEGATIVE NEGATIVE Urine RBC (Auto) TRACE-I NEGATIVE Urine RBC 0-2 /HPF Urine WBC RARE /HPF Urine Squamous Epithelial Cells NONE /HPF Urine Crystals NONE /LPF Urine Bacteria NEGATIVE /HPF Urine Casts NONE /LPF Urine Mucus NEGATIVE /LPF Urine Culture Indicated NO My Orders Orders - ELIZABETH JUDD DO Ekg Tracing (08/02/19) O2 (08/02/19:) Monitor-Rhythm Ecg Trace Only (08/02/19:) Albuterol Pre-Mix Nebs (Rt) (Proventil (08/02/19) Albuterol/Ipra Inhalation Soln (Duoneb I (08/02/1930) Dexamethasone Injection (Decadron Inject (08/02/19:) Rt Request For Service (08/02/19) Methylprednisolone Sod Succ (Solu-Medrol (08/02/19:) Chest 1 View, Ap/Pa Only (08/02/19:) Ed Iv/Invasive Line Start (08/02/19) Ns Iv 1000 Ml (Sodium Chloride 0.9%) (08/02/19:) Cbc With Automated Diff (08/02/19:) Comprehensive Metabolic Panel (08/02/19) Blood Culture (08/02/19) Sputum Culture (08/02/19) Urinalysis (08/02/19) Urine Culture (08/02/19) Protime With Inr (08/02/19:) Partial Thromboplastin Time (08/02/19:) Ed Iv/Invasive Line Start (3/14/20 09:29) Ed Iv/Invasive Line Start (08/02/19 09:29) Vital Signs Adult Sepsis Patie Q15M (08/02/19 09:29) O2 (08/02/19 09:29) Remove Rings In Anticipation O (08/02/19:29) Lactic Acid Analyzer (08/02/19 09:29) Cefepime Injection (Maxipime Injection) (08/02/19 09:30) Svn Small Volume Nebulizer (08/02/19 09:29) Svn Small Volume Nebulizer (08/02/19 09:29) Methylprednisolone Sod Succ (Solu-Medrol (08/02/19 09:30) Dexamethasone Injection (Decadron Inject (08/02/19 09:26) Albuterol Pre-Mix Nebs (Rt) (Proventil (08/02/19 09:27) Albuterol/Ipra Inhalation Soln (Duoneb I (08/02/19 09:27) Catheter(Urinary) Insert & Ass 03,15 (08/02/19 09:54) Ng Tube Insert & Assessment (08/02/19 09:54) Vancomycin Injection (Vancomycin Injecti (08/02/19 10:00) Manual Differential (08/02/19 09:32) Procalcitonin (Pct) (08/02/19 10:05) Vancomycin Injection (Vancomycin Injecti (08/02/19 10:15) Propofol Drip (Icu) (Diprivan Drip (Icu) (08/02/19 10:30) Ed Iv/Invasive Line Start (08/02/19 10:21) Ns Iv 1000 Ml (Sodium Chloride 0.9%) (08/02/19 10:21) Medications Given in ED Current Medications Medications Dose Ordered Sig/Colton Route Start Time Stop Time Status Last Admin Dose Admin Cefepime HCl 2000 mg/Sterile Water 10 ml @ 200 mls/hr ONCE ONCE IV 08/02/19 09:30 08/02/19 09:32 DC 08/02/19 10:21 200 MLS/HR Vital Signs/I&O 08/02/19 08/02/19 09:21 09:22 Temp 37.5 Pulse 137 Resp 27 B/P (MAP) 144/76 (98) Pulse Ox 88 90 O2 Delivery Room Air Nasal Cannula O2 Flow Rate 4.00 Capillary Refill : Less Than 3 Seconds Blood Pressure Mean: 153 Progress Note : Progress Note O2 SATS IN 70'S ON ARRIVAL, PT IS NORMOTENSIVE AND TACHYCARDIC WITH RATE IN 130'S ON ARRIVAL PT IMMEDIATELY INTUBATED SHORTLY AFTER ARRIVAL, AFTER OBTAINING VERBAL CONSENT FROM PT O2 SATS IMMEDIATELY IMPROVED GIVEN IV STEROIDS AND ANTIBIOTICS PT HELD IN ER DUE TO CRITICAL PT IN ICU AT THIS TIME NO DETERIORATION IN PT'S CONDITION DURING ER STAY ECG Initial ECG Impression Date: Aug 02, 2019 Initial ECG Impression Time: 09:49 Initial ECG Rate: 134 Initial ECG Rhythm: S.Tach Diagnostic Imaging Comments CXR--BILATERAL INTERSTITIAL THICKENING--PER RADIOLOGIST REPORT AT 1034 Critical Care Note Critical Care Total Time (minutes) 60 MINUTES Departure Communication (Admissions) 1020--DR. RIOS HERE TO SEE PT 1023--SPOKE WITH DR. RICHARDSON, ACCEPTS PT FOR ADMIT Impression Primary Impression: Acute respiratory failure Additional Impressions: Influenza A Pneumonitis Heavy smoker Severe sepsis Disposition: ADMITTED INPATIENT Condition: Improved Admissions Decision to Admit Reason: Admit from ER (General) Decision to Admit/Date: Aug 02, 2019 Time/Decision to Admit Time: 10:20 Departure-Patient Inst. Referrals: AMIE MONK MD (PCP/Family) Primary Care Physician ELIZABETH JUDD DO Aug 02, 2019 10:58
--- NOTE | 2019-08-02 10:59 | NUR ---
Pt twitching. [facility] notified. Increase Propofol per protocol per [facility] at this time.
[2019-08-02] MEDS ORDERED: ACETAMINOPHEN 650 MG SUPP (TYLENOL) PR NR (11:00)
--- NOTE | 2019-08-02 11:09 | NUR ---
Increase pt's propofol per protocol per [facility] at this time.
[2019-08-02] MEDS ORDERED: fentaNYL INJECTION 100 MCG/2 ML AMP ONE (11:22)
--- NOTE | 2019-08-02 11:25 | NUR ---
Pt suctioned and propofol increased per protocol at this time.
[2019-08-02] MEDS ORDERED: fentaNYL INJECTION 100 MCG/2 ML AMP IVP ONE (11:30)
--- NOTE | 2019-08-02 12:26 | History & Physical-Hospitalist ---
History of Present Illness HPI/Chief Complaint this is a 59-year-old white male who presented to the emergency room by private vehicle and respiratory distress. The patient was electively intubated by Dr. Don. The patient had been in extremitas with diffuse diaphoresis. At the time of my interview, the patient is sedated and intubated. He had been discharged l ast week after a short hospitalization with influenza A. Source: RN/MD Exam Limitations: clinical condition Date Seen 08/02/19 Time Seen by a Provider: 12:00 Attending Physician Ramin Kay MD Referring Physician Date of Admission Aug 02, 2019 at 10:36 Home Medications & Allergies Home Medications Reviewed patient Home Medication Reconciliation performed by pharmacy medication reconciliations biology specimen technician and/or nursing. Patients Allergies have been reviewed. Allergies Allergies Coded Allergies No Known Drug Allergies (Unverified07/04/11) Past Lvfokqo-Sghxmc-Cjlegs Hx Past Med/Social Hx: Reviewed Nursing Past Med/Soc Hx, Reviewed and Corrections made Patient Social History Marrital Status: single, Employed/Student: retired Alcohol Use: Past History (HISTORY OF ALCOHOL ABUSE) Recreational Drug Use: Yes (OVERDOSED ON ALCOHOL AND RX PILLS) Drug of Choice: OVERDOSED ON ALCOHOL AND RX MEDICATIONS Smoking Status: Current Everyday Smoker (2 PPD) Type Used: Cigars, Cigarettes 2nd Hand Smoke Exposure: No Recent Foreign Travel: No Contact w/other who traveled: No Recent Hopitalizations: Yes Recent Infectious Disease Expo: No Seasonal Allergies Seasonal Allergies: No Past Medical History Respiratory: COPD Cardiac: High Cholesterol, Hypertension HEENT: Cataract Loss of Vision: Denies Hearing Impairment: Denies Psychosocial: Anxiety, Suicide Attempts, Depression History of Blood Disorders: No Family History No Pertinent Family Hx Review of Systems ROS-Unable to Obtain: unable to obtain Constitutional: see HPI Physical Exam Physical Exam Vital Signs Vital Signs - First Documented 08/02/19 08/02/19 09:21 09:22 Temp 37.5 Pulse 137 Resp 27 B/P (MAP) 144/76 (98) Pulse Ox 88 O2 Delivery Room Air O2 Flow Rate 4.00 Capillary Refill : Less Than 3 Seconds Height, Weight, BMI Height: '" Weight: lbs. oz. kg; 25.00 BMI Method: General Appearance: Mild Distress, Other (intubated) HEENT: Normal ENT Inspection Neck: Normal Inspection Respiratory: Crackles, Rales, Wheezing Cardiovascular: Tachycardia Gastrointestinal: Normal Bowel Sounds, Soft Extremity: No Pedal Edema, Other (normal pedal pulses) Neurologic/Psychiatric: Other (sedated and intubated) Skin: Warm/Dry, Pallor Lymphatic: No Adenopathy Results Results/Procedures Labs Laboratory Tests 08/02/19 09:32 Patient resulted labs reviewed. Imaging: Reviewed Imaging Films, Reviewed Imaging Report Assessment/Plan Admission Diagnosis severe sepsis acute respiratory failure COPD History of influenza A-currently negative Plan pulmonary consult, vent support Admission Status: Inpatient Order (span 2 midnights) Reason for Inpatient Admission: sepsis with multiple comorbidities Critical Care Ventilator Management CC Start/Stop Time : Critical Care Start Date: Aug 02, 2019 Critical Care Start Time: 11:45 Stop date: Aug 02, 2019 Stop Time: 12:45 Copy Copies To 1: RAMIN MONK MD, KATHLEEN M MD Aug 02, 2019 12:26
--- NOTE | 2019-08-02 12:33 | NUR ---
CR 1.08; CR CL > 60; WT 77 KG; PT RECIEVED VANCO 1500 MG IV IN ER; CONTINUE WITH VANCO 1000 MG IV Q12H X 3 DAYS
[2019-08-02] MEDS ORDERED: D5 1/2 NS W/KCL 20 MEQ/L 1,000 ML IV ONE (12:44)
--- NOTE | 2019-08-02 12:48 | Diagnostic Imaging Report ---
Indication: Dyspnea. Comparison: Earlier same date. Discussion: Single portable frontal view of the chest was obtained. Enteric tube remains coiled in the stomach. Endotracheal tube is at the level of the thoracic inlet. Patchy infiltrates are noted within the left lung base, likely atelectasis, new. No pneumothorax or osseous abnormality. Impression: 1. Endotracheal tube tip at the level the thoracic inlet, 8 cm above the evette. Dictated by: Dictated on workstation # [id number]
[2019-08-02] MEDS ORDERED: EPINEPHrine 1 MG INJECTION 2 MG in NS (IVPB) 250 ML IV SCH (13:00)
[2019-08-02] MEDS: fentaNYL INJECTION 1,250 MCG in NS (IVPB) 250 ML IV SCH (13:02)
[2019-08-02] MEDS ORDERED: MIDAZOLAM 2 MG/2 ML (VERSED) VIAL ONE (13:29)
[2019-08-02] MEDS ORDERED: MIDAZOLAM 5 MG/5 ML (VERSED) VIAL IVP NR (13:30)
[2019-08-02] MEDS: D5 1/2 NS W/KCL 20 MEQ/L 1,000 ML IV SCH ×2 (13:31→19:33)
[2019-08-02] MEDS: DexMEDEtomidine 250 ML DRIP 250 ML IV SCH ×2 (13:32→20:11)
[2019-08-02] MEDS: MIDAZOLAM INJECTION FOR DRIPS 50 MG in NS (IVPB) 90 ML IV SCH (13:42)
[2019-08-02 14:10] LABS: ABG BASE EXCESS -6.8 MMOL/L (-2.5-2.5); ABG OXYGEN SATURATION 97 % (94-100); ABG PCO2 62 MMHG (35-45); ABG PO2 109 MMHG (79-93); ABG TCO2 22.7 MMOL/L (21.0-31.0)
[2019-08-02 14:12] LABS: ABG PH 7.15 (7.37-7.43); ALLENS TEST YES-POS
[2019-08-02 14:13] LABS: INSPIRED O2 90%; PATIENT TEMP 36.7; VENTILATOR YES
[2019-08-02] MEDS ORDERED: RT-ALBUTEROL/IPRATROPIUM 3 ML (DUONEB) VIAL INH NR (14:15)
[2019-08-02] MEDS ORDERED: VANCOMYCIN INJECTION 0.1 MG in NS (IVPB) 250 ML IV SCH (15:30)
[2019-08-02] MEDS ORDERED: SUCCINYLCHOLINE INJ 100 MG/5 ML SYR INJ ONE (16:00)
[2019-08-02] MEDS ORDERED: MIDAZOLAM 5 MG/5 ML (VERSED) VIAL INJ ONE (16:00)
[2019-08-02] MEDS ORDERED: ROCURONIUM 10 MG/ML 5 ML SYRINGE IV ONE (16:00)
[2019-08-02] MEDS: NOREPINEPHRINE 4 MG/250 ML 250 ML IV SCH ×2 (16:06→21:08)
[2019-08-02] MEDS: VASOPRESSIN INJECTION 20 UNIT in NORMAL SALINE 100 ML IV SCH ×2 (16:06→21:07)
[2019-08-02 16:10] LABS: ABG OXYGEN SATURATION 85 % (94-100); ABG PCO2 49 MMHG (35-45); ABG PO2 54 MMHG (79-93); ABG TCO2 23.2 MMOL/L (21.0-31.0)
[2019-08-02 16:11] LABS: ABG PH 7.27 (7.37-7.43); ALLENS TEST YES-POS; INSPIRED O2 70%; PATIENT TEMP 37.1; VENTILATOR YES
[2019-08-02] MEDS: methylPREDNISolone 125 MG (Solu-MEDROL) VIAL IVP SCH ×2 (17:52→23:24)
[2019-08-02] MEDS: inSUlin ASPART (NovoLOG) 1 UNIT/0.01 ML (CHARGE PER UNIT) SC SCH ×2 (17:52→23:23)
[2019-08-02] MEDS: RT-ALBUTEROL/IPRATROPIUM 3 ML (DUONEB) VIAL INH SCH ×2 (18:34→22:09)
[2019-08-02] MEDS ORDERED: NS IV 500 ML 500 ML ONE ×2 (19:30→19:34)
[2019-08-02] MEDS: NS IV 500 ML 500 ML IV SCH ×4 (19:44→19:48)
[2019-08-02] MEDS: CEFEPIME 1,000 MG/SWFI 10 ML IV PUSH IV SCH ×2 (20:10)
[2019-08-02] MEDS: VANCOMYCIN 1 GM/NS 250 ML IVPB IV SCH ×2 (22:17)
[2019-08-03] VITALS (30 sets, daily range): BP systolic 103–161; BP diastolic 66–105
[2019-08-03] MEDS: RT-ALBUTEROL/IPRATROPIUM 3 ML (DUONEB) VIAL INH SCH ×6 (02:09→22:51)
[2019-08-03] MEDS: D5 1/2 NS W/KCL 20 MEQ/L 1,000 ML IV SCH (02:14)
[2019-08-03] MEDS: CEFEPIME 1,000 MG/SWFI 10 ML IV PUSH IV SCH ×4 (02:29→08:14)
[2019-08-03] MEDS: DexMEDEtomidine 250 ML DRIP 250 ML IV SCH ×3 (02:29→23:09)
[2019-08-03] MEDS: PROPOFOL DRIP (ICU) 100 ML IV SCH ×3 (02:29→17:55)
[2019-08-03 02:49] LABS: ABG BASE EXCESS -5.7 MMOL/L (-2.5-2.5); ABG OXYGEN SATURATION 97 % (94-100); ABG PCO2 37 MMHG (35-45); ABG PO2 84 MMHG (79-93); ABG TCO2 20.3 MMOL/L (21.0-31.0)
[2019-08-03 02:50] LABS: ABG PH 7.33 (7.37-7.43)
[2019-08-03 02:51] LABS: ALLENS TEST POSITIVE; INSPIRED O2 16; VENTILATOR YES
[2019-08-03 03:22] LABS: BASOPHILS % (AUTO) 0 % (0-10); EOSINOPHILS % (AUTO) 0 % (0-10); HEMATOCRIT 36 % (40-54); LYMPHOCYTES # (AUTO) 0.3 X 10^3 (1.0-4.0); LYMPHOCYTES % (AUTO) 3 % (12-44); MEAN CORPUSCULAR HEMOGLOBIN 32 PG (25-34); MEAN CORPUSCULAR HGB CONC 33 G/DL (32-36); MEAN CORPUSCULAR VOLUME 96 FL (80-99); MEAN PLATELET VOLUME 10.5 FL (7.4-10.4); MONOCYTES # (AUTO) 0.4 X 10^3 (0.0-1.0); MONOCYTES % (AUTO) 3 % (0-12); NEUTROPHILS # (AUTO) 12.3 X 10^3 (1.8-7.8); NEUTROPHILS % (AUTO) 94 % (42-75); PLATELET COUNT 277 10^3/uL (130-400); RED CELL DISTRIBUTION WIDTH 13.6 % (10.0-14.5)
[2019-08-03 03:39] LABS: BUN/CREATININE RATIO 13; CALCIUM 6.9 MG/DL (8.5-10.1); CARBON DIOXIDE 15 MMOL/L (21-32); CHLORIDE 108 MMOL/L (98-107); GFR ESTIMATED > 60; GLUCOSE 210 MG/DL (70-105); PHOSPHORUS 1.9 MG/DL (2.3-4.7); POTASSIUM 4.6 MMOL/L (3.6-5.0); SODIUM 133 MMOL/L (135-145)
[2019-08-03] MEDS: KCL 20 MEQ TAB (K-DUR) PO SCH (03:45)
[2019-08-03] MEDS: POTASSIUM CL 10MEQ/50ML IVPB 50 ML IV SCH (03:45)
[2019-08-03] MEDS: MAGNESIUM 1 GM/100 ML IVPB 100 ML IV SCH (03:45)
[2019-08-03] MEDS: VASOPRESSIN INJECTION 20 UNIT in NORMAL SALINE 100 ML IV SCH (03:46)
--- NOTE | 2019-08-03 05:35 | Pulmonary Consultation ---
History of Present Illness History of Present Illness Date of Admission Allergies and Home Medications Allergies Coded Allergies: No Known Drug Allergies (Unverified , 07/04/11) Home Medications Brimonidine Tartrate/Timolol 5 Ml Drops, 1 DROP OU BID, (Reported) Hydroxyzine Pamoate 50 Mg Capsule, 50 MG PO DAILY PRN for ANXIETY, (Reported) Ibuprofen 200 Mg Tablet, 400 MG PO Q8H PRN for PAIN-MILD (1-4), (Reported) Nicotine 1 Each Patch.td24, 21 MG TD DAILY Prescribed by: SUSANA HAYES on 07/28/19 1015 Omeprazole 20 Mg Capsule.dr, 20 MG PO DAILY, (Reported) Oseltamivir Phosphate 75 Mg Cap, 75 MG PO Q12H Prescribed by: SUSANA HAYES on 07/28/19 1015 Prednisone 10 Mg Tab.ds.pk, 10 MG PO DAILY Take 6 tabs(60mg)daily,decrease by 1 tab(10MG)daily. Prescribed by: SUSANA HAYES on 07/28/19 1015 Quetiapine Fumarate 300 Mg Tablet, 300 MG PO BID, (Reported) Sertraline HCl 100 Mg Tablet, 200 MG PO HS, (Reported) Trazodone HCl 100 Mg Tablet, 50-100 MG PO HS, (Reported) [Guaifenesin/Codeine] 10 ML SYRP, 10 ML PO Q4H PRN for COUGH Prescribed by: SUSANA HAYES on 07/28/19 1015 Past Jzcmcqd-Ewtwfe-Bsbqsj Hx Past Med/Social Hx: Reviewed Nursing Past Med/Soc Hx, Reviewed and Corrections made Patient Social History Alcohol Use: Past History (HISTORY OF ALCOHOL ABUSE) Recreational Drug Use: Yes (OVERDOSED ON ALCOHOL AND RX PILLS) Drug of Choice: OVERDOSED ON ALCOHOL AND RX MEDICATIONS Smoking Status: Current Everyday Smoker (2 PPD) Type Used: Cigars, Cigarettes 2nd Hand Smoke Exposure: No Recent Foreign Travel: No Contact w/Someone Who Travel: No Recent Infectious Disease Expo: No Recent Hopitalizations: Yes Seasonal Allergies Seasonal Allergies: No Past Medical History Surgeries: No Respiratory: Yes (INFLUENZA A REQUIRING VENTILATION 07/25/19, READMITTED 08/02/19 & INTUBATED) Cardiac: Yes High Cholesterol, Hypertension Neurological: No Genitourinary: No Gastrointestinal: No Musculoskeletal: No Endocrine: No HEENT: Yes (BILAT RETINAL DETACHMENT) Cataract Loss of Vision: Denies Hearing Impairment: Denies Cancer: No Psychosocial: Yes (OVERDOSED ON ALCOHOL AND RX MEDICATIONS AT LEAST TWICE-2007 AND 2011) Anxiety, Suicide Attempts, Depression Integumentary: No Blood Disorders: No Family Medical History No Pertinent Family Hx Sepsis Event Evaluation Height, Weight, BMI Height: '" Weight: lbs. oz. kg; 25.81 BMI Method: Exam Exam Vital Signs Date Time Temp Pulse Resp B/P (MAP) Pulse Ox O2 Delivery O2 Flow Rate FiO2 08/03/19 04:00 37.1 77 26 149/97 (114) 97 Mechanical Ventilator 30.00 08/03/19 03:25 96 Mechanical Ventilator 30 08/03/19 03:00 37.1 79 26 145/92 (109) 96 Mechanical Ventilator 30.00 08/03/19 02:29 79 08/03/19 02:29 144/95 08/03/19 02:14 Mechanical Ventilator 30.00 08/03/19 02:09 76 26 99 40 08/03/19 02:09 99 Mechanical Ventilator 40 08/03/19 02:00 37.2 75 25 149/100 (116) 99 Mechanical Ventilator 50.00 08/03/19 01:00 37.2 76 25 146/97 (113) 99 Mechanical Ventilator 50.00 08/03/19 01:00 76 08/03/19 00:00 37.2 78 26 139/91 (107) 98 Mechanical Ventilator 50.00 08/02/19 23:37 96 Mechanical Ventilator 50 08/02/19 23:00 37.3 79 26 134/91 (105) 98 Mechanical Ventilator 50.00 08/02/19 22:10 99 Mechanical Ventilator 50 08/02/19 22:10 75 26 99 60 08/02/19 22:00 37.5 76 14 128/86 (100) 98 Mechanical Ventilator 50.00 08/02/19 21:00 37.4 79 20 105/65 (78) 98 Mechanical Ventilator 50.00 08/02/19 20:11 77 08/02/19 20:11 97/61 08/02/19 20:00 96 Mechanical Ventilator 50 08/02/19 20:00 37.4 79 13 97/61 (73) 98 Mechanical Ventilator 50.00 08/02/19 19:37 37.3 08/02/19 19:00 37.2 79 17 90/57 (68) 98 Mechanical Ventilator 50.00 08/02/19 19:00 78 08/02/19 18:43 Mechanical Ventilator 50.00 08/02/19 18:34 98 Mechanical Ventilator 60 08/02/19 18:34 75 28 99 60 08/02/19 18:00 37.3 74 26 79/54 (62) 98 Mechanical Ventilator 70.00 08/02/19 17:00 37.2 75 26 85/55 (65) 98 Mechanical Ventilator 70.00 08/02/19 16:00 96 Mechanical Ventilator 60 08/02/19 16:00 37.0 76 25 84/57 (66) 98 Mechanical Ventilator 70.00 08/02/19 15:42 36.8 08/02/19 15:42 36.8 08/02/19 15:42 36.8 08/02/19 15:00 83 25 76/54 (61) 94 Mechanical Ventilator 70.00 08/02/19 14:21 110 118/71 08/02/19 14:20 98 70 08/02/19 14:20 Mechanical Ventilator 70.00 08/02/19 14:00 103 17 93/71 (78) 97 Mechanical Ventilator 100.00 08/02/19 13:46 105 28 98 100 08/02/19 13:42 110 12 118/71 08/02/19 13:32 110 118/71 08/02/19 13:05 100 08/02/19 13:02 38.0 08/02/19 13:00 106 16 105/59 (74) 91 Mechanical Ventilator 100.00 08/02/19 12:44 Mechanical Ventilator 50.00 08/02/19 12:41 106 22 95 40 08/02/19 12:20 110 08/02/19 12:11 38.0 114 12 118/71 (153) 90 Mechanical Ventilator 08/02/19 12:00 118 12 123/75 (91) 95 Mechanical Ventilator 100.00 08/02/19 11:50 Mechanical Ventilator 100 08/02/19 11:45 117 12 134/81 (98) 95 Mechanical Ventilator 100.00 08/02/19 11:08 38.0 08/02/19 10:37 127 203/129 08/02/19 10:23 131 22 97 70 08/02/19 09:30 92 Nasal Cannula 4.00 08/02/19 09:22 90 Nasal Cannula 4.00 08/02/19 09:21 37.5 137 27 144/76 (98) 88 Room Air I & O 08/03/19 07:00 Intake Total 5220 ml Output Total 850 ml Balance 4370 ml Height & Weight Height: '" Weight: lbs. oz. kg; 25.81 BMI Method: General Appearance: Mild Distress, Other (intubated) HEENT: Normal ENT Inspection Neck: Normal Inspection Respiratory: Crackles, Rales, Wheezing Cardiovascular: Tachycardia Capillary Refill: Less Than 3 Seconds Peripheral Pulses: 3+ Dorsalis Pedis (R), 3+ Left Dors-Pedis (L), 3+ Radial Pulses (R), 3+ Radial Pulses (L) Gastrointestinal: non tender, soft Extremity: No Pedal Edema, Other (normal pedal pulses) Neurologic/Psychiatric: Other (sedated and intubated) Skin: Warm/Dry, Pallor Lymphatic: No Adenopathy Results Lab Laboratory Tests 08/02/19 09:32 08/03/19 02:35 ANNAMARIE RIOS DO Aug 03, 2019 05:35
--- NOTE | 2019-08-03 05:41 | Pulmonary Progress Note ---
Subjective Date Seen by a Provider: Aug 03, 2019 Time Seen by a Provider: 05:36 Subjective/Events-last exam sedated on vent Sepsis Event Evaluation Height, Weight, BMI Height: '" Weight: lbs. oz. kg; 25.81 BMI Method: Focused Exam Lactate Level 08/02/19 09:32: Lactic Acid Level 1.35 Time of Focused Exam: 10:45 Exam Exam Vital Signs Date Time Temp Pulse Resp B/P (MAP) Pulse Ox O2 Delivery O2 Flow Rate FiO2 08/03/19 04:00 37.1 77 26 149/97 (114) 97 Mechanical Ventilator 30.00 08/03/19 03:25 96 Mechanical Ventilator 30 08/03/19 03:00 37.1 79 26 145/92 (109) 96 Mechanical Ventilator 30.00 08/03/19 02:29 79 08/03/19 02:29 144/95 08/03/19 02:14 Mechanical Ventilator 30.00 08/03/19 02:09 76 26 99 40 08/03/19 02:09 99 Mechanical Ventilator 40 08/03/19 02:00 37.2 75 25 149/100 (116) 99 Mechanical Ventilator 50.00 08/03/19 01:00 37.2 76 25 146/97 (113) 99 Mechanical Ventilator 50.00 08/03/19 01:00 76 08/03/19 00:00 37.2 78 26 139/91 (107) 98 Mechanical Ventilator 50.00 08/02/19 23:37 96 Mechanical Ventilator 50 08/02/19 23:00 37.3 79 26 134/91 (105) 98 Mechanical Ventilator 50.00 08/02/19 22:10 99 Mechanical Ventilator 50 08/02/19 22:10 75 26 99 60 08/02/19 22:00 37.5 76 14 128/86 (100) 98 Mechanical Ventilator 50.00 08/02/19 21:00 37.4 79 20 105/65 (78) 98 Mechanical Ventilator 50.00 08/02/19 20:11 77 08/02/19 20:11 97/61 08/02/19 20:00 96 Mechanical Ventilator 50 08/02/19 20:00 37.4 79 13 97/61 (73) 98 Mechanical Ventilator 50.00 08/02/19 19:37 37.3 08/02/19 19:00 37.2 79 17 90/57 (68) 98 Mechanical Ventilator 50.00 08/02/19 19:00 78 08/02/19 18:43 Mechanical Ventilator 50.00 08/02/19 18:34 98 Mechanical Ventilator 60 08/02/19 18:34 75 28 99 60 08/02/19 18:00 37.3 74 26 79/54 (62) 98 Mechanical Ventilator 70.00 08/02/19 17:00 37.2 75 26 85/55 (65) 98 Mechanical Ventilator 70.00 08/02/19 16:00 96 Mechanical Ventilator 60 08/02/19 16:00 37.0 76 25 84/57 (66) 98 Mechanical Ventilator 70.00 08/02/19 15:42 36.8 08/02/19 15:42 36.8 08/02/19 15:42 36.8 08/02/19 15:00 83 25 76/54 (61) 94 Mechanical Ventilator 70.00 08/02/19 14:21 110 118/71 08/02/19 14:20 98 70 08/02/19 14:20 Mechanical Ventilator 70.00 08/02/19 14:00 103 17 93/71 (78) 97 Mechanical Ventilator 100.00 08/02/19 13:46 105 28 98 100 08/02/19 13:42 110 12 118/71 08/02/19 13:32 110 118/71 08/02/19 13:05 100 08/02/19 13:02 38.0 08/02/19 13:00 106 16 105/59 (74) 91 Mechanical Ventilator 100.00 08/02/19 12:44 Mechanical Ventilator 50.00 08/02/19 12:41 106 22 95 40 08/02/19 12:20 110 08/02/19 12:11 38.0 114 12 118/71 (153) 90 Mechanical Ventilator 08/02/19 12:00 118 12 123/75 (91) 95 Mechanical Ventilator 100.00 08/02/19 11:50 Mechanical Ventilator 100 08/02/19 11:45 117 12 134/81 (98) 95 Mechanical Ventilator 100.00 08/02/19 11:08 38.0 08/02/19 10:37 127 203/129 08/02/19 10:23 131 22 97 70 08/02/19 09:30 92 Nasal Cannula 4.00 08/02/19 09:22 90 Nasal Cannula 4.00 08/02/19 09:21 37.5 137 27 144/76 (98) 88 Room Air I & O 08/03/19 07:00 Intake Total 5220 ml Output Total 850 ml Balance 4370 ml Height & Weight Height: '" Weight: lbs. oz. kg; 25.81 BMI Method: General Appearance: No Apparent Distress, Other (intubated) HEENT: Normal ENT Inspection Neck: Normal Inspection Respiratory: Crackles, Rales, Wheezing Cardiovascular: Tachycardia Capillary Refill: Less Than 3 Seconds Peripheral Pulses: 3+ Dorsalis Pedis (R), 3+ Left Dors-Pedis (L), 3+ Radial Pulses (R), 3+ Radial Pulses (L) Gastrointestinal: non tender, soft Extremity: No Pedal Edema, Other (normal pedal pulses) Neurologic/Psychiatric: Other (sedated and intubated) Skin: Warm/Dry, Pallor Lymphatic: No Adenopathy Results Lab Laboratory Tests 08/02/19 09:32 08/03/19 02:35 Assessment/Plan Assessment/Plan Severe sepsis Acute respiratory failure -Continue vent therapy -ET tube changed x3 and currently has 8.5 ET tube yesterday per RT yesterday. I assume directed by EICU. -Reviewed CXR cuff leak was secondary to ET tube being to high. COPD -Duoneb -Solumedrol recent influenza A -Currently neg for influenza A ANNAMARIE RIOS DO Aug 03, 2019 05:41
[2019-08-03] MEDS ORDERED: SODIUM BICARB 8.4% 50 MEQ/50 ML VIAL IV ONE (05:45)
[2019-08-03] MEDS ORDERED: methylPREDNISolone 40 MG/ML (Solu-MEDROL) VIAL ONE (06:04)
[2019-08-03] MEDS: methylPREDNISolone 125 MG (Solu-MEDROL) VIAL IVP SCH ×3 (06:11→17:34)
[2019-08-03] MEDS: inSUlin ASPART (NovoLOG) 1 UNIT/0.01 ML (CHARGE PER UNIT) SC SCH ×3 (06:11→18:28)
[2019-08-03] MEDS: LACTATED RINGERS 1,000 ML IV SCH ×2 (06:12→20:40)
--- NOTE | 2019-08-03 07:15 | Diagnostic Imaging Report ---
INDICATION: Dyspnea. COMPARISON: Earlier same date. DISCUSSION: Single portable upright view of the chest was obtained. Endotracheal tube is in good position within the mid trachea, advanced from prior. Stable normal heart size. Nonspecific alveolar infiltrates are present, likely accentuated due to poor inspiratory effort. No pleural fluid or pneumothorax. Enteric tube remains coiled in the stomach. IMPRESSION: 1. Endotracheal tube tip in good position within the mid trachea. Dictated by: Dictated on workstation # [id number]
--- NOTE | 2019-08-03 07:18 | Diagnostic Imaging Report ---
INDICATION: Intubation. TIME OF EXAM: 3:16 AM CORRELATION is made with prior chest from one day earlier. ET tube has its tip at the level of the clavicular heads, well above the evette. NG tube is coiled in the stomach. There has been improved aeration in the left base when compared with yesterday's study. There may be some mild residual infiltrate or atelectasis in the left base. Right lung is clear. There is no effusion or pneumothorax. IMPRESSION: Overall improved aeration to the left lung base when compared with examination one day earlier. Dictated by: Dictated on workstation # [id number]
[2019-08-03] MEDS ORDERED: SODIUM BICARB 8.4% 50 MEQ/50 ML VIAL ONE (07:55)
[2019-08-03] MEDS ORDERED: SODIUM PHOSPHATE INJ 30 MM in NS (IVPB) 250 ML IV ONE (08:00)
[2019-08-03] MEDS: MIDAZOLAM INJECTION FOR DRIPS 50 MG in NS (IVPB) 90 ML IV SCH (08:10)
[2019-08-03] MEDS: PANTOPRAZOLE 40 MG (PROTONIX) VIAL IV SCH (08:13)
[2019-08-03] MEDS: ENOXAPARIN 40 MG/0.4 ML (LOVENOX) SYR SC SCH (08:14)
[2019-08-03] MEDS: VANCOMYCIN 1 GM/NS 250 ML IVPB IV SCH ×4 (10:31→23:14)
--- NOTE | 2019-08-03 10:55 | Progress Note - Hospitalist ---
Subjective HPI/CC On Admission Date Seen by Provider: Aug 03, 2019 Time Seen by Provider: 10:20 this is a 59-year-old white male who presented to the emergency room by private vehicle and respiratory distress. The patient was electively intubated by Dr. Don. The patient had been in extremitas with diffuse diaphoresis. At the time of my interview, the patient is sedated and intubated. He had been discharged last week after a short hospitalization with influenza A. Subjective/Events-last exam Patient remains on the vent and sedated. FiO2 is 30 percent. Sputum grew out Haemophilus influenza. As such we will change to Rocephin 2 g IV every 12 hours because of the severity of illness and will consider narrowing antibiotic coverage by discontinuing vancomycin starting tomorrow. Serum bicarbonate is 15. Focused Exam Lactate Level 08/02/19 09:32: Lactic Acid Level 1.35 Time of Focused Exam: 10:45 Objective Exam Vital Signs Vital Signs Date Time Temp Pulse Resp B/P (MAP) Pulse Ox O2 Delivery O2 Flow Rate FiO2 08/03/19 10:04 75 26 97 30 08/03/19 09:33 125/75 08/03/19 08:00 36.7 Mechanical Ventilator 30.00 Capillary Refill : Less Than 3 Seconds General Appearance: Chronically ill HEENT: Normal ENT Inspection Neck: Limited Range of Motion Respiratory: Crackles, Rales, Wheezing Cardiovascular: Regular Rate, Rhythm, No Gallop, Normal Peripheral Pulses Gastrointestinal: Normal Bowel Sounds, Soft Rectal: Deferred Extremity: Pedal Edema Neurologic/Psychiatric: Other (Sedated) Skin: Normal Color, Warm/Dry Results/Procedures Lab Laboratory Tests 08/03/19 02:35 Patient resulted labs reviewed. Imaging: Reviewed Imaging Films, Reviewed Imaging Report Assessment/Plan Assessment and Plan Assess & Plan/Chief Complaint Acute respiratory failure secondary to Haemophilus influenza-plan to change to Rocephin 2 g IV every 12 hours per [facility] guidelines discontinue vancomycin tomorrow Sepsis-severe COPD History of influenza A now negative Metabolic acidosis History of depression Prognosis is guarded Critical Care Ventilator Management Clinical Quality Measures DVT/VTE Risk/Contraindication: Risk Factor Score Per Nursin RFS Level Per Nursing on Admit: 4+=Very High MESHA RICHARDSON MD Aug 03, 2019 10:55
[2019-08-03] MEDS: cefTRIAXone FOR IV USE 2,000 MG in WATER (STERILE) FOR INJECTION 20 ML IV SCH ×2 (13:06→23:14)
[2019-08-03] MEDS: fentaNYL INJECTION 1,250 MCG in NS (IVPB) 250 ML IV SCH ×2 (13:08→15:17)
[2019-08-03] MEDS ORDERED: FUROSEMIDE 40 MG/4 ML INJ (LASIX) IVP ONE (17:15)
[2019-08-04] VITALS (31 sets, daily range): BP systolic 98–164; BP diastolic 62–127
[2019-08-04] MEDS: methylPREDNISolone 125 MG (Solu-MEDROL) VIAL IVP SCH ×5 (00:01→23:45)
[2019-08-04] MEDS: PROPOFOL DRIP (ICU) 100 ML IV SCH ×6 (00:02→22:22)
[2019-08-04] MEDS: inSUlin ASPART (NovoLOG) 1 UNIT/0.01 ML (CHARGE PER UNIT) SC SCH ×5 (00:04→23:46)
[2019-08-04] MEDS: MIDAZOLAM INJECTION FOR DRIPS 50 MG in NS (IVPB) 90 ML IV SCH (01:07)
[2019-08-04] MEDS: KCL 20 MEQ TAB (K-DUR) PO SCH (02:13)
[2019-08-04] MEDS: POTASSIUM CL 10MEQ/50ML IVPB 50 ML IV SCH (02:13)
[2019-08-04] MEDS: MAGNESIUM 1 GM/100 ML IVPB 100 ML IV SCH (02:13)
[2019-08-04] MEDS: RT-ALBUTEROL/IPRATROPIUM 3 ML (DUONEB) VIAL INH SCH ×6 (02:49→21:57)
[2019-08-04 02:53] LABS: ABG BASE EXCESS 0.3 MMOL/L (-2.5-2.5); ABG OXYGEN SATURATION 98 % (94-100); ABG PCO2 34 MMHG (35-45); ABG PH 7.46 (7.37-7.43); ABG PO2 96 MMHG (79-93); ABG TCO2 24.5 MMOL/L (21.0-31.0); ALLENS TEST POSITIVE; INSPIRED O2 40; PATIENT TEMP 37.8; VENTILATOR YES
--- NOTE | 2019-08-04 03:18 | Pulmonary Progress Note ---
BITA ULRICH MEDICAL STUDENT 08/04/19 0318: Subjective Date Seen by a Provider: Aug 04, 2019 Subjective/Events-last exam Patient sedated on vent. Review of Systems unable to assess due to patient sedated on vent Sepsis Event Evaluation Height, Weight, BMI Height: '" Weight: lbs. oz. kg; 25.81 BMI Method: Focused Exam Lactate Level 08/02/19 09:32: Lactic Acid Level 1.35 Time of Focused Exam: 10:45 Exam Exam Vital Signs Date Time Temp Pulse Resp B/P (MAP) Pulse Ox O2 Delivery O2 Flow Rate FiO2 08/04/19 03:00 37.9 79 25 123/77 (92) 97 Mechanical Ventilator 40.00 08/04/19 02:56 91 Vapotherm 30.00 75 08/04/19 02:49 86 30 96 40 08/04/19 02:00 37.7 80 26 140/91 (107) 96 Mechanical Ventilator 40.00 08/04/19 01:07 93 26 103/66 08/04/19 01:00 37.6 81 26 138/92 (107) 95 Mechanical Ventilator 40.00 08/04/19 01:00 81 08/04/19 00:02 93 103/66 08/04/19 00:00 94 Mechanical Ventilator 30 08/04/19 00:00 37.6 87 26 127/76 (93) 92 Mechanical Ventilator 40.00 08/03/19 23:28 37.6 93 26 91 Mechanical Ventilator 40.00 08/03/19 23:09 80 103/66 08/03/19 23:00 37.6 80 32 103/66 (78) 93 Mechanical Ventilator 30.00 08/03/19 22:52 79 34 95 30 08/03/19 22:00 37.5 77 25 143/94 (110) 97 Mechanical Ventilator 30.00 08/03/19 21:00 37.6 80 25 143/97 (112) 96 Mechanical Ventilator 30.00 08/03/19 20:00 37.7 80 25 139/85 (103) 94 Mechanical Ventilator 30.00 08/03/19 20:00 94 Mechanical Ventilator 30 08/03/19 19:00 85 08/03/19 19:00 37.9 85 26 136/82 (100) 95 Mechanical Ventilator 30.00 08/03/19 18:38 80 26 96 30 08/03/19 18:00 37.9 83 26 120/70 (87) 99 Mechanical Ventilator 30.00 08/03/19 17:55 78 156/100 08/03/19 17:00 37.7 81 25 161/105 (123) 98 Mechanical Ventilator 30.00 08/03/19 16:30 36.9 08/03/19 16:00 93 Mechanical Ventilator 30 08/03/19 16:00 37.6 78 25 156/100 (118) 97 Mechanical Ventilator 30.00 08/03/19 15:00 37.3 77 25 156/99 (118) 97 Mechanical Ventilator 30.00 08/03/19 14:00 37.2 77 26 154/96 (115) 96 Mechanical Ventilator 30.00 08/03/19 13:50 78 26 97 30 08/03/19 13:05 79 152/90 08/03/19 13:00 37.1 77 26 154/97 (116) 97 Mechanical Ventilator 30.00 08/03/19 12:44 78 08/03/19 12:00 36.9 78 25 152/92 (112) 97 Mechanical Ventilator 30.00 08/03/19 12:00 36.4 08/03/19 11:45 96 Mechanical Ventilator 30 08/03/19 11:00 36.8 79 26 152/90 (110) 97 Mechanical Ventilator 30.00 08/03/19 10:04 75 26 97 30 08/03/19 10:00 36.7 76 26 153/90 (111) 97 Mechanical Ventilator 30.00 08/03/19 09:33 81 125/75 08/03/19 09:00 36.7 77 25 145/85 (105) 96 Mechanical Ventilator 30.00 08/03/19 08:10 81 28 125/75 08/03/19 08:00 36.7 78 25 151/95 (113) 97 Mechanical Ventilator 30.00 08/03/19 08:00 96 Mechanical Ventilator 30 08/03/19 07:00 36.9 78 25 125/75 (92) 94 Mechanical Ventilator 30.00 08/03/19 06:45 68 08/03/19 06:40 81 28 96 30 08/03/19 06:00 36.9 74 25 155/99 (117) 98 Mechanical Ventilator 30.00 08/03/19 05:00 37.0 74 26 154/98 (116) 98 Mechanical Ventilator 30.00 08/03/19 04:00 37.1 77 26 149/97 (114) 97 Mechanical Ventilator 30.00 08/03/19 03:25 96 Mechanical Ventilator 30 I & O 08/04/19 07:00 Intake Total 1375 ml Output Total 2900 ml Balance -1525 ml Height & Weight Height: '" Weight: lbs. oz. kg; 25.81 BMI Method: General Appearance: Chronically ill, Obese HEENT: PERRL/EOMI, Moist Mucous Membranes Neck: Supple, Limited Range of Motion Respiratory: Lungs Clear, Wheezing (RUL) Cardiovascular: Regular Rate, Rhythm, No Murmur Capillary Refill: Less Than 3 Seconds Gastrointestinal: normal bowel sounds, soft Extremity: Normal Inspection, No Pedal Edema Neurologic/Psychiatric: Other (Sedated) Skin: Normal Color, Diaphoresis Lymphatic: No Adenopathy Results Lab Laboratory Tests 08/02/19 09:32 08/03/19 02:35 Assessment/Plan Assessment/Plan Severe sepsis Acute respiratory failure -Continue vent therapy. FiO2 currently at 40%, PEEP 8 -Sputum positive for Haemophilus Influenza -Negative for MRSA -D/c vanc today COPD -Duoneb -Solumedrol Recent influenza A -Discharged 07/28/19 -Currently neg for influenza A DVT/GI ppx -Lovenox 40mg SQ -Protonix 40mg IV ANNAMARIE RIOS DO 08/04/19 0418: Subjective Time Seen by a Provider: 04:15 Subjective/Events-last exam sedated on vent Exam Exam General Appearance: Chronically ill, Obese HEENT: Moist Mucous Membranes Neck: Supple, Limited Range of Motion Respiratory: Lungs Clear, Wheezing (RUL) Cardiovascular: Regular Rate, Rhythm, No Murmur Gastrointestinal: normal bowel sounds, soft Extremity: Normal Inspection, No Pedal Edema Neurologic/Psychiatric: Other (Sedated) Skin: Normal Color Lymphatic: No Adenopathy Assessment/Plan Assessment/Plan Severe sepsis Acute respiratory failure -Continue vent therapy. FiO2 currently at 40%, PEEP 8 -Sputum positive for Haemophilus Influenza -Add azithromycin keep rocephin -Secondary to fever repeat greer cultures, PCT. -Negative for MRSA -D/c vanc today -Decrease IVF to 30 cc/hr and give 40 of lasix COPD -Duoneb -Solumedrol Recent influenza A -Discharged 07/28/19 -Currently neg for influenza A DVT/GI ppx -Lovenox 40mg SQ -Protonix 40mg IV BITA ULRICH MEDICAL STUDENT Aug 04, 2019 03:18 ANNAMARIE RIOS DO Aug 04, 2019 04:18
[2019-08-04 03:45] LABS: BASOPHILS % (AUTO) 0 % (0-10); EOSINOPHILS % (AUTO) 0 % (0-10); HEMATOCRIT 37 % (40-54); HEMOGLOBIN 12.4 G/DL (13.3-17.7); LYMPHOCYTES # (AUTO) 0.5 X 10^3 (1.0-4.0); LYMPHOCYTES % (AUTO) 4 % (12-44); MEAN CORPUSCULAR HEMOGLOBIN 32 PG (25-34); MEAN CORPUSCULAR HGB CONC 34 G/DL (32-36); MEAN CORPUSCULAR VOLUME 93 FL (80-99); MEAN PLATELET VOLUME 9.9 FL (7.4-10.4); MONOCYTES # (AUTO) 0.9 X 10^3 (0.0-1.0); MONOCYTES % (AUTO) 6 % (0-12); NEUTROPHILS # (AUTO) 13.2 X 10^3 (1.8-7.8); NEUTROPHILS % (AUTO) 90 % (42-75); PLATELET COUNT 275 10^3/uL (130-400); RED CELL DISTRIBUTION WIDTH 13.5 % (10.0-14.5); WHITE BLOOD COUNT 14.6 10^3/uL (4.3-11.0)
[2019-08-04] MEDS ORDERED: AZITHROMYCIN INJECTION 500 MG in NS (IVPB) 250 ML IV ONE (04:15)
[2019-08-04 04:21] LABS: BUN/CREATININE RATIO 11; CALCIUM 7.1 MG/DL (8.5-10.1); CARBON DIOXIDE 19 MMOL/L (21-32); CHLORIDE 102 MMOL/L (98-107); CREATININE SERUM 0.73 MG/DL (0.60-1.30); GFR ESTIMATED > 60; GLUCOSE 150 MG/DL (70-105); MAGNESIUM 1.7 MG/DL (1.6-2.4); PHOSPHORUS 1.9 MG/DL (2.3-4.7); POTASSIUM 4.2 MMOL/L (3.6-5.0); SODIUM 131 MMOL/L (135-145); TRIGLYCERIDES 328 MG/DL (<150)
[2019-08-04] MEDS ORDERED: FUROSEMIDE 40 MG/4 ML INJ (LASIX) IVP ONE (04:30)
[2019-08-04] MEDS ORDERED: FUROSEMIDE 40 MG/4 ML INJ (LASIX) ONE (04:35)
[2019-08-04] MEDS ORDERED: AZITHROMYCIN 500 MG (ZITHROMAX) VIAL ONE (04:37)
[2019-08-04] MEDS ORDERED: NS (IVPB) 250 ML ONE (04:37)
[2019-08-04 05:37] LABS: BILIRUBIN,URINE NEGATIVE (NEGATIVE); CLARITY,URINE SL CLOUDY; COLOR,URINE YELLOW; GLUCOSE, URINE (UA) NEGATIVE (NEGATIVE); KETONES,URINE NEGATIVE (NEGATIVE); LEUKOCYTE ESTERASE ,URINE NEGATIVE (NEGATIVE); NITRITE,URINE NEGATIVE (NEGATIVE); PH,URINE 7.5 (5-9); PROTEIN,URINE NEGATIVE (NEGATIVE)
[2019-08-04 05:52] LABS: BACTERIA,URINE TRACE /HPF
--- NOTE | 2019-08-04 07:34 | Diagnostic Imaging Report ---
EXAM: CHEST 1 VIEW, AP/PA ONLY INDICATION: Respiratory failure. COMPARISON: 08/03/2019. FINDINGS: Normal heart size and central pulmonary vascularity. No focal pulmonary opacity, pleural effusion or pneumothorax. ETT tip at the level of the clavicles. NGT tip within the stomach. IMPRESSION: Support lines in the expected positions. No acute cardiopulmonary findings. Dictated by: Dictated on workstation # [id number]
[2019-08-04] MEDS: DexMEDEtomidine 250 ML DRIP 250 ML IV SCH ×2 (07:39→16:43)
--- NOTE | 2019-08-04 08:03 | Occ Therapy Progress Note ---
Therapy Progress Note Pt currently sedated/ on mechanical ventilation. OT to see pt to eval/ treat when medically stable and able to participate in skilled therapy treatments. JERROD WILLIS OTR Aug 04, 2019 08:03
--- NOTE | 2019-08-04 08:23 | Physical Therapy Progress Note ---
Therapy Progress Note Patient currently sedated and on ventilator. PT will continue to monitor patient status and initiate treatment when patient is medically stable and able to actively participate with skilled therapy. ZANA MAR PT Aug 04, 2019 08:23
[2019-08-04] MEDS: ENOXAPARIN 40 MG/0.4 ML (LOVENOX) SYR SC SCH (08:40)
[2019-08-04] MEDS: cefTRIAXone FOR IV USE 2,000 MG in WATER (STERILE) FOR INJECTION 20 ML IV SCH ×2 (08:41→20:29)
[2019-08-04] MEDS: PANTOPRAZOLE 40 MG (PROTONIX) VIAL IV SCH (08:41)
--- NOTE | 2019-08-04 09:38 | NUR ---
THIS NURSE NOTIFIED DR RIOS SEDATION IS OFF. PT IS UNABLE TO FOLLOW COMMANDS, BUT PT IS THRASHING IN BED AND IS VERY AGITATED. ORDERS GIVEN FOR VENT SETTINGS AND TO CHECK ABG IN 30 MINUTES. THIS NURSE AND RT AT BEDSIDE TO MONITOR.
[2019-08-04 10:26] LABS: ABG BASE EXCESS -6.9 MMOL/L (-2.5-2.5); ABG OXYGEN SATURATION 86 % (94-100); ABG PCO2 47 MMHG (35-45); ABG PO2 66 MMHG (79-93); ABG TCO2 20.3 MMOL/L (21.0-31.0)
[2019-08-04 10:29] LABS: ALLENS TEST YES-POS; INSPIRED O2 30%; PATIENT TEMP 38.1; VENTILATOR YES
--- NOTE | 2019-08-04 10:32 | NUR ---
THIS NURSE CALLED CRITICAL LAB RESULTS TO DR RIOS. DR RIOS GAVE ORDERS TO RESUME PREVIOUS VENT SETTINGS PRIOR TO WEANING AND RESTART PROPOFOL. RT AND THIS NURSE AT BEDSIDE TO MONITOR.
--- NOTE | 2019-08-04 12:04 | Diagnostic Imaging Report ---
INDICATION: PICC line placement. COMPARISON: Imaging from the same date. TECHNIQUE: Two radiographs of the chest dated August 04, 2019 at 11:45 a.m. FINDINGS: Endotracheal tube and enteric catheter are again identified and stable. Interval placement of right-sided PICC line with the distal tip overlying the right atrium. No pneumothorax. The cardiac silhouette is within normal limits. No significant pulmonary vascular congestion. Lungs are clear of focal pulmonary opacity. No pleural effusion. No pneumothorax. No acute osseous abnormality. IMPRESSION: Interval placement of right-sided PICC line with the distal tip overlying the right atrium without pneumothorax. Recommend retraction of approximately 2 cm for optimal positioning. Otherwise, similar exam. Dictated by: Dictated on workstation # [id number]
--- NOTE | 2019-08-04 14:39 | NUR ---
"Received dietary consult regarding pt's vent status. Est. kcal needs: 4740-5196 kcal | 20-25 kcal/kg Est. Pro needs: 66-82 g Pro | 0.8-1.0 g Pro/kg Pt is possibly going to be extubated tomorrow (08/04) per Zaida BERG. If pt is to remain intubated, would recommend the following TF: Jevity 1.5 at goal rate of 50ml/hr. Begin at 10ml/hr and increase by 10ml q6h as tolerated. Monitor gastric residuals for tolerance. At goal rate, provides 1800 kcal (21 kcal/kg); 77 g Pro (0.9 g Pro/kg); and 912ml free water. Flush with 75ml H2O q4h for hydration status. With flushes, provides 1362ml free water. Will continue to follow and reassess as pt needs, intake, and status change. Holly Whitman, MS, RD, LD [phone]"
--- NOTE | 2019-08-04 14:48 | NUR ---
THIS NURSE NOTIFIED DR RIOS PT IS VERY AGITATED WITH CARES. ORDERS GIVEN FOR ATIVAN PRN. SEE ORDER HISTORY.
[2019-08-04] MEDS: LACTATED RINGERS 1,000 ML IV SCH (15:36)
[2019-08-04] MEDS ORDERED: LORazepam INJ 2 MG/ML (ATIVAN) VIAL IVP PRN (18:45)
--- NOTE | 2019-08-04 18:59 | Progress Note ---
Subjective Subjective/Events-last exam Patient currently undergoing breathing trial. Review of Systems Vented Focused Exam Lactate Level 08/02/19 09:32: Lactic Acid Level 1.35 08/04/19 05:18: Lactic Acid Level 1.78 Time of Focused Exam: 10:45 Objective Exam Last Set of Vital Signs Vital Signs Date Time Temp Pulse Resp B/P (MAP) Pulse Ox O2 Delivery O2 Flow Rate FiO2 08/04/19 18:49 154/101 08/04/19 18:11 68 26 98 50 08/04/19 18:00 37.1 Mechanical Ventilator 30.00 Capillary Refill : Less Than 3 Seconds I&O Intake and Output 08/04/19 00:00 Intake Total 2725 ml Output Total 3400 ml Balance -675 ml Intake Oral 0 ml IV Total 2725 ml Output Urine Total 3200 ml Gastric Drainage Total 200 ml General: Moderate Distress, Other (awake) Lungs: Other (diffuse crackles, increased work of breathing during trial ) Heart: Regular Rate, No Murmurs Abdomen: Normal Bowel Sounds, Soft, No Tenderness Skin: No Rashes, No Breakdown Results/Procedures Lab Laboratory Tests 08/04/19 00:04: Glucometer 123H 08/04/19 02:45: Blood Gas Puncture Site LEFT RADIAL, Blood Gas Patient Temperature 37.8, Arterial Blood pH 7.46H, Arterial Blood Partial Pressure CO2 34L, Arterial Blood Partial Pressure O2 96H, Arterial Blood HCO3 24, Arterial Blood Total CO2 24.5, Arterial Blood Oxygen Saturation 98, Arterial Blood Base Excess 0.3, Margarito Test POSITIVE, Blood Gas Ventilator Setting YES, Blood Gas Inspired Oxygen 40 08/04/19 03:35: White Blood Count 14.6H, Red Blood Count 3.93L, Hemoglobin 12.4L, Hematocrit 37L , Mean Corpuscular Volume 93, Mean Corpuscular Hemoglobin 32, Mean Corpuscular Hemoglobin Concent 34, Red Cell Distribution Width 13.5, Platelet Count 275, Mean Platelet Volume 9.9, Neutrophils (%) (Auto) 90H, Lymphocytes (%) (Auto) 4L, Monocytes (%) (Auto) 6, Eosinophils (%) (Auto) 0, Basophils (%) (Auto) 0, N eutrophils # (Auto) 13.2H, Lymphocytes # (Auto) 0.5L, Monocytes # (Auto) 0.9, Eosinophils # (Auto) 0.0, Basophils # (Auto) 0.0, Sodium Level 131L, Potassium Level 4.2, Chloride Level 102, Carbon Dioxide Level 19L, Anion Gap 10, Blood Urea Nitrogen 8, Creatinine 0.73, Estimat Glomerular Filtration Rate > 60, BU N/Creatinine Ratio 11, Glucose Level 150H, Calcium Level 7.1L, Phosphorus Level 1.9L, Magnesium Level 1.7, B-Type Natriuretic Peptide 872.8H, Triglycerides Level 328H, Procalcitonin 1.58H 08/04/19 05:00: Urine Color YELLOW, Urine Clarity SL CLOUDY, Urine pH 7.5, Urine Specific [place] 1.015L, Urine Protein NEGATIVE, Urine Glucose (UA) NEGATIVE, Urine Ketones NEGATIVE, Urine Nitrite NEGATIVE, Urine Bilirubin NEGATIVE, Urine Urobilinogen 0.2, Urine Leukocyte Esterase NEGATIVE, Urine RBC (Auto) NEGATIVE, Urine RBC NONE, Urine WBC NONE, Urine Squamous Epithelial Cells NONE, Urine Crystals NONE, Urine Bacteria TRACE, Urine Casts NONE, Urine Mucus SMALLH, Urine Culture Indicated NO 08/04/19 05:18: Lactic Acid Level 1.78 08/04/19 10:15: Blood Gas Puncture Site R RADIAL, Blood Gas Patient Temperature 38.1, Arterial Blood pH 7.24*L, Arterial Blood Partial Pressure CO2 47H, Arterial Blood Partial Pressure O2 66L, Arterial Blood HCO3 19L, Arterial Blood Total CO2 20.3L, Arterial Blood Oxygen Saturation 86L, Arterial Blood Base Excess -6.9L, Margarito Test YES-POS, Blood Gas Ventilator Setting YES, Blood Gas Inspired Oxygen 30% 08/04/19 12:32: Glucometer 145H 08/04/19 17:55: Glucometer 151H Microbiology 08/04/19 Influenza Types A,B Antigen (HENRY) - Final, Complete 08/02/19 Urine Culture - Final, Complete NO GROWTH 08/02/19 Blood Culture - Preliminary, Resulted No growth Assessment/Plan Assessment/Plan (1) Severe sepsis Status: Acute (2) Acute and chronic respiratory failure Status: Acute Assessment & Plan: 08/03: Dr Villafuerte managing, currently on vent, Rocephin and Azithromyocin, recent Flu A infection (3) Haemophilus infection Status: Acute (4) COPD (chronic obstructive pulmonary disease) Status: Chronic Qualifiers: Qualified Codes: J44.9 - Chronic obstructive pulmonary disease, unspecified (5) Metabolic acidosis Status: Acute (6) Influenza A Status: Resolved (7) DVT prophylaxis Status: Acute Assessment & Plan: Lovenox Clinical Quality Measures DVT/VTE Risk/Contraindication: Risk Factor Score Per Nursin RFS Level Per Nursing on Admit: 4+=Very High LOUISE YANG MD Aug 04, 2019 18:59
--- NOTE | 2019-08-04 21:35 | NUR ---
60 ML OF VERSED WASTED WITH OTIS ORO
[2019-08-05] VITALS (24 sets, daily range): BP systolic 112–173; BP diastolic 67–92
[2019-08-05] MEDS: PROPOFOL DRIP (ICU) 100 ML IV SCH ×2 (01:34→04:53)
[2019-08-05] MEDS: DexMEDEtomidine 250 ML DRIP 250 ML IV SCH (01:35)
[2019-08-05] MEDS: RT-ALBUTEROL/IPRATROPIUM 3 ML (DUONEB) VIAL INH SCH ×5 (02:02→21:28)
[2019-08-05 03:43] LABS: ABG BASE EXCESS 1.4 MMOL/L (-2.5-2.5); ABG OXYGEN SATURATION 98 % (94-100); ABG PCO2 35 MMHG (35-45); ABG PH 7.46 (7.37-7.43); ABG PO2 105 MMHG (79-93); ABG TCO2 25.9 MMOL/L (21.0-31.0)
[2019-08-05 03:49] LABS: ALLENS TEST POS; INSPIRED O2 50%; PATIENT TEMP 36.9; VENTILATOR YES
[2019-08-05 04:32] LABS: BASOPHILS % (AUTO) 0 % (0-10); EOSINOPHILS % (AUTO) 0 % (0-10); HEMATOCRIT 37 % (40-54); HEMOGLOBIN 12.2 G/DL (13.3-17.7); LYMPHOCYTES # (AUTO) 0.3 X 10^3 (1.0-4.0); LYMPHOCYTES % (AUTO) 3 % (12-44); MEAN CORPUSCULAR HEMOGLOBIN 31 PG (25-34); MEAN CORPUSCULAR HGB CONC 33 G/DL (32-36); MEAN CORPUSCULAR VOLUME 93 FL (80-99); MEAN PLATELET VOLUME 10.2 FL (7.4-10.4); MONOCYTES # (AUTO) 0.7 X 10^3 (0.0-1.0); MONOCYTES % (AUTO) 6 % (0-12); NEUTROPHILS # (AUTO) 10.1 X 10^3 (1.8-7.8); NEUTROPHILS % (AUTO) 91 % (42-75); PLATELET COUNT 344 10^3/uL (130-400); RED CELL DISTRIBUTION WIDTH 13.4 % (10.0-14.5); WHITE BLOOD COUNT 11.1 10^3/uL (4.3-11.0)
[2019-08-05 04:48] LABS: BUN/CREATININE RATIO 15; CALCIUM 7.8 MG/DL (8.5-10.1); CARBON DIOXIDE 21 MMOL/L (21-32); CHLORIDE 105 MMOL/L (98-107); CREATININE SERUM 0.68 MG/DL (0.60-1.30); GFR ESTIMATED > 60; GLUCOSE 146 MG/DL (70-105); MAGNESIUM 2.4 MG/DL (1.6-2.4); POTASSIUM 3.9 MMOL/L (3.6-5.0); SODIUM 137 MMOL/L (135-145)
[2019-08-05] MEDS: MAGNESIUM 1 GM/100 ML IVPB 100 ML IV SCH (05:16)
[2019-08-05] MEDS: POTASSIUM CL 10MEQ/50ML IVPB 50 ML IV SCH (05:16)
[2019-08-05] MEDS: inSUlin ASPART (NovoLOG) 1 UNIT/0.01 ML (CHARGE PER UNIT) SC SCH ×4 (05:17→23:31)
[2019-08-05] MEDS: KCL 20 MEQ TAB (K-DUR) PO SCH (05:17)
--- NOTE | 2019-08-05 05:38 | Diagnostic Imaging Report ---
Indication: Respiratory failure Portable chest 4:37 AM ET tube projects over the trachea. There is an NG tube that appears to enter the stomach. Right IJ central line tip projects over the SVC at the cavoatrial junction. Heart size and pulmonary vascularity are normal. Lungs are clear. There are no effusions or pneumothoraces. IMPRESSION: No acute abnormalities the chest. Support tubes and catheters project over appropriate structures. Dictated by: Dictated on workstation # [id number]
[2019-08-05] MEDS ORDERED: methylPREDNISolone 40 MG/ML (Solu-MEDROL) VIAL ONE (06:10)
--- NOTE | 2019-08-05 06:15 | Pulmonary Progress Note ---
Subjective Time Seen by a Provider: 06:10 Subjective/Events-last exam Pt is sedated on vent. Sepsis Event Evaluation Height, Weight, BMI Height: '" Weight: lbs. oz. kg; 25.81 BMI Method: Focused Exam Lactate Level 08/02/19 09:32: Lactic Acid Level 1.35 08/04/19 05:18: Lactic Acid Level 1.78 Time of Focused Exam: 10:45 Exam Exam Vital Signs Date Time Temp Pulse Resp B/P (MAP) Pulse Ox O2 Delivery O2 Flow Rate FiO2 08/05/19 05:00 36.6 71 25 140/86 (104) 97 Mechanical Ventilator 50.00 08/05/19 04:53 80 138/86 08/05/19 04:00 36.9 70 25 149/87 (107) 98 Mechanical Ventilator 50.00 08/05/19 04:00 98 Mechanical Ventilator 50 08/05/19 03:00 36.8 72 26 148/89 (108) 98 Mechanical Ventilator 50.00 08/05/19 02:02 67 26 98 50 08/05/19 02:00 36.9 70 26 157/92 (113) 98 Mechanical Ventilator 50.00 08/05/19 01:35 70 153/92 08/05/19 01:34 69 153/92 08/05/19 01:00 67 08/05/19 01:00 36.8 67 25 156/92 (113) 98 Mechanical Ventilator 50.00 08/05/19 00:00 98 Mechanical Ventilator 50 08/05/19 00:00 36.8 74 25 150/86 (107) 96 Mechanical Ventilator 50.00 08/04/19 23:00 37.1 80 25 153/90 (111) 98 Mechanical Ventilator 50.00 08/04/19 22:22 82 146/87 08/04/19 22:00 37.0 69 26 152/91 (111) 98 Mechanical Ventilator 50.00 08/04/19 21:58 69 26 97 50 08/04/19 21:00 36.9 73 20 155/97 (116) 99 Mechanical Ventilator 50.00 08/04/19 20:00 98 Mechanical Ventilator 50 08/04/19 20:00 36.8 71 22 155/95 (115) 97 Mechanical Ventilator 50.00 08/04/19 19:00 36.8 75 25 147/93 (111) 96 Mechanical Ventilator 50.00 08/04/19 19:00 75 08/04/19 18:49 154/101 08/04/19 18:11 68 26 98 50 08/04/19 18:00 37.1 67 25 152/93 (112) 97 Mechanical Ventilator 30.00 08/04/19 17:00 36.9 87 12 146/88 (107) 97 Mechanical Ventilator 30.00 08/04/19 16:43 154/95 08/04/19 16:24 69 26 97 30 08/04/19 16:00 97 Mechanical Ventilator 50 08/04/19 16:00 37.7 72 26 156/96 (116) 96 Mechanical Ventilator 30.00 08/04/19 15:00 37.0 86 17 160/90 (113) 95 Mechanical Ventilator 30.00 08/04/19 14:38 120/73 08/04/19 14:00 36.6 68 26 164/93 (116) 96 Mechanical Ventilator 30.00 08/04/19 13:00 36.3 79 34 160/88 (112) 96 Mechanical Ventilator 30.00 08/04/19 12:05 92 08/04/19 12:00 96 Mechanical Ventilator 50 08/04/19 12:00 37.6 80 26 158/95 (116) 98 Mechanical Ventilator 30.00 08/04/19 11:00 38.2 100 26 99/62 (74) 96 Mechanical Ventilator 30.00 08/04/19 10:53 151/92 08/04/19 10:04 114 41 96 30 08/04/19 10:00 37.8 86 20 98/66 (77) 92 Mechanical Ventilator 30.00 08/04/19 09:00 37.6 82 25 119/73 (88) 95 Mechanical Ventilator 30.00 08/04/19 08:00 37.7 81 25 120/77 (91) 94 Mechanical Ventilator 30.00 08/04/19 08:00 94 Mechanical Ventilator 30 08/04/19 07:39 80 114/75 08/04/19 07:00 37.7 08/04/19 07:00 37.7 95 25 109/73 (85) 95 Mechanical Ventilator 30.00 08/04/19 07:00 84 08/04/19 06:32 81 26 96 30 I & O 08/05/19 07:00 Intake Total 1000 ml Output Total 4725 ml Balance -3725 ml Height & Weight Height: '" Weight: lbs. oz. kg; 25.81 BMI Method: General Appearance: Chronically ill, Obese HEENT: Moist Mucous Membranes Neck: Supple, Limited Range of Motion Respiratory: Lungs Clear, Wheezing (RUL) Cardiovascular: Regular Rate, Rhythm, No Murmur Capillary Refill: Less Than 3 Seconds Gastrointestinal: normal bowel sounds, soft Extremity: Normal Inspection, No Pedal Edema Neurologic/Psychiatric: Other (Sedated) Skin: Normal Color Lymphatic: No Adenopathy Results Lab Laboratory Tests 08/04/19 03:35 08/05/19 03:20 Assessment/Plan Assessment/Plan Severe sepsis Acute respiratory failure -Continue vent therapy. -Pt failed weaning yesterday secondary to agitation. Will d/c all sedation and extubated once he is awake and alert. -Sputum positive for Haemophilus Influenza -azithromycin keep rocephin -Secondary to fever repeat greer cultures, PCT. -Negative for MRSA -D/c vanco -D/C IVF D/c sedation COPD -Duoneb -Solumedrol Recent influenza A -Discharged 07/28/19 -Currently neg for influenza A DVT/GI ppx -Lovenox 40mg SQ -Protonix 40mg IV ANNAMARIE RIOS DO Aug 05, 2019 06:15
--- NOTE | 2019-08-05 07:56 | Physical Therapy Progress Note ---
Therapy Progress Note Patient currently sedated and intubated. Possible extubation on this date. PT will monitor patient status. ZANA MAR PT Aug 05, 2019 07:56
--- NOTE | 2019-08-05 07:59 | Occ Therapy Progress Note ---
Therapy Progress Note Pt currently under sedation/ on mechanical ventilation. OT to hold on this date and initiate eval/ treat when pt medically stable and able to participate in skilled treatment. JERROD WILLIS OTR Aug 05, 2019 07:59
[2019-08-05 08:21] LABS: ABG PH 7.24 (7.37-7.43)
[2019-08-05] MEDS: ENOXAPARIN 40 MG/0.4 ML (LOVENOX) SYR SC SCH (08:31)
[2019-08-05] MEDS: AZITHROMYCIN INJECTION 250 MG in NS (IVPB) 250 ML IV SCH (08:31)
[2019-08-05] MEDS: PANTOPRAZOLE 40 MG (PROTONIX) VIAL IV SCH (08:31)
[2019-08-05] MEDS: cefTRIAXone FOR IV USE 2,000 MG in WATER (STERILE) FOR INJECTION 20 ML IV SCH (08:31)
--- NOTE | 2019-08-05 09:45 | NUR ---
THIS NURSE NOTIFIED DR RIOS PT IS C/O SOA AND CHEST PAIN. HEART RATE HAS BEEN 80-90S, SBP 110-120S, AND RR ARE IN THE 30S. PT APPEARS TO BE VERY ANXIOUS AND CONFUSED. EKG OBTAINED AND RESULTS SENT TO DR RIOS. NO NEW ORDERS AT THIS TIME.
[2019-08-05] MEDS: RT-BUDESONIDE NEBS 0.5 MG/2ML (PULMICORT) AMP INH SCH ×2 (10:24→18:10)
--- NOTE | 2019-08-05 10:28 | Physical Therapy Progress Note ---
Therapy Progress Note RN requested Hold on PT due to patient's current behaviors. Patient has been extubated. PT will attempt in p.toñito. ZANA MAR PT Aug 05, 2019 10:28
[2019-08-05 11:14] LABS: PARAINFLU 1 PCR Not Detected (Not Detected); PARAINFLU 2 PCR Not Detected (Not Detected); RSV PCR TEST Not Detected (Not Detected)
[2019-08-05] MEDS: methylPREDNISolone 40 MG/ML (Solu-MEDROL) VIAL IV SCH ×3 (12:10→23:31)
[2019-08-05] MEDS: morphine INJ 4 MG/ML 1 ML (VIAL/SYRINGE) IVP PRN ×2 (12:12→20:32)
[2019-08-05 12:24] LABS: ABG BASE EXCESS -1.8 MMOL/L (-2.5-2.5); ABG OXYGEN SATURATION 92 % (94-100); ABG PCO2 29 MMHG (35-45); ABG PH 7.48 (7.37-7.43); ABG PO2 56 MMHG (79-93)
[2019-08-05 12:25] LABS: ALLENS TEST YES-POS; INSPIRED O2 25%; PATIENT TEMP 37.1; VENTILATOR NO
--- NOTE | 2019-08-05 12:30 | NUR ---
THIS NURSE NOTIFIED DR RIOS PT'S RESPIRATORY PANEL RESULTED IN POSITIVE FOR FLU A. ORDERS GIVEN TO PUT PT IN DROPLET ISOLATION. PT IS STILL VERY ANXIOUS, DIAPHORETIC, RR ARE STILL IN THE 30S, O2 SATURATIONS HAVE BEEN IN THE 90'S, HEART RATE IS NOW 110-120S SR. PT STATES " I CAN'T BREATHE". ORDERS GIVEN TO OBTAIN ABG AND FOR IV MORPHINE SEE ORDER HX.
--- NOTE | 2019-08-05 12:55 | NUR ---
THIS NURSE NOTIFIED DR RIOS OF ABG RESULTS. NO NEW ORDERS AT THIS TIME. WILL CONTINUE TO MONITOR.
[2019-08-05] MEDS: OSELTAMIVIR 75 MG (TAMIFLU) CAPSULE PO SCH ×2 (13:21→20:32)
--- NOTE | 2019-08-05 13:30 | Physical Therapy Progress Note ---
Therapy Progress Note RN request treatment at AM. ZANA MAR PT Aug 05, 2019 13:30
[2019-08-05] MEDS: LACTATED RINGERS 1,000 ML IV SCH (13:32)
--- NOTE | 2019-08-05 14:50 | NUR ---
SPOKE WITH THE PT WHEN HE WAS HERE ON HIS PREVIOUS STAY ON 07-28-2019- HE WAS READMITTED ON 08-02-2019 (SEE NOTE ON 07-28-2019 FOR MORE INFORMATION) I COMPLETED THE MED REC AND LEFT ON THE NICOTINE AND PREDNISONE DOSE PACK SINCE THERE ARE STILL ACTIVE. OTC MEDS: IBUPROFEN PRN
--- NOTE | 2019-08-05 15:25 | NUR ---
AT [address] RIOS PT IS STILL VERY ANXIOUS, RR ARE STILL IN THE 30'S. PT STATES " I CAN'T BREATHE". THIS NURSE ADMINISTERED MORPHINE. PT DOES NOT APPEAR TO HAVE ANY RELIEF. NURSE SUGGESTED ANT-ANXIETY MEDICATION TO HELP THE PT RELAX. 1525 DR ROIS ORDERED BIPAP AND PRECEDEX DRIP. SEE ORDER HX.
[2019-08-05] MEDS ORDERED: DexMEDEtomidine 250 ML DRIP 250 ML IV SCH (15:45)
--- NOTE | 2019-08-05 22:10 | Progress Note ---
Subjective Subjective/Events-last exam Patient extubated this AM. Answering direct questions. Alert to self but confused and states that he has pain when he coughs and pain all over his body. Review of Systems Pulmonary: Dyspnea, Cough Cardiovascular: No: Chest Pain, Palpitations Gastrointestinal: No: Nausea, Vomiting, Diarrhea, Constipation Genitourinary: No Dysuria Neurological: Weakness Vented Focused Exam Lactate Level 08/04/19 05:18: Lactic Acid Level 1.78 Time of Focused Exam: 10:45 Objective Exam Last Set of Vital Signs Vital Signs Date Time Temp Pulse Resp B/P (MAP) Pulse Ox O2 Delivery O2 Flow Rate FiO2 08/05/19 21:28 96 Vapotherm 30.00 25 08/05/19 21:00 96 23 142/85 (104) 08/05/19 20:00 37.1 Capillary Refill : Less Than 3 Seconds I&O Intake and Output 08/05/19 00:00 Intake Total 1100 ml Output Total 6125 ml Balance -5025 ml Intake Oral 0 ml IV Total 1100 ml Output Urine Total 6025 ml Gastric Drainage Total 100 ml General: Alert, Cooperative, No Acute Distress Lungs: Clear to Auscultation, Other (increased work of breathing ) Heart: Regular Rate, No Murmurs Abdomen: Normal Bowel Sounds, Soft, No Tenderness, No Masses Extremities: Other (1+ pitting edema bilaterally) Skin: No Rashes, No Breakdown Neuro: Sensation Intact, Cranial Nerves 3-12 NL Results/Procedures Lab Laboratory Tests 08/04/19 22:55: Glucometer 155H 08/05/19 03:20: White Blood Count 11.1H, Red Blood Count 3.94L, Hemoglobin 12.2L, Hematocrit 37L , Mean Corpuscular Volume 93, Mean Corpuscular Hemoglobin 31, Mean Corpuscular Hemoglobin Concent 33, Red Cell Distribution Width 13.4, Platelet Count 344, Mean Platelet Volume 10.2, Neutrophils (%) (Auto) 91H, Lymphocytes (%) (Auto) 3L , Monocytes (%) (Auto) 6, Eosinophils (%) (Auto) 0, Basophils (%) (Auto) 0, Neutrophils # (Auto) 10.1H, Lymphocytes # (Auto) 0.3L, Monocytes # (Auto) 0.7, Eosinophils # (Auto) 0.0, Basophils # (Auto) 0.0, Sodium Level 137, Potassium Level 3.9, Chloride Level 105, Carbon Dioxide Level 21, Anion Gap 11, Blood Urea Nitrogen 10, Creatinine 0.68, Estimat Glomerular Filtration Rate > 60, BUN/Creatinine Ratio 15, Glucose Level 146H, Calcium Level 7.8L, Phosphorus Level 2.0L, Magnesium Level 2.4, B-Type Natriuretic Peptide 663.3H, Smear Scan 08/05/19 03:37: Blood Gas Puncture Site LT RAD, Blood Gas Patient Temperature 36.9, Arterial Blood pH 7.46H, Arterial Blood Partial Pressure CO2 35, Arterial Blood Partial Pressure O2 105H, Arterial Blood HCO3 25, Arterial Blood Total CO2 25.9, Arterial Blood Oxygen Saturation 98, Arterial Blood Base Excess 1.4, Margarito Test POS, Blood Gas Ventilator Setting YES, Blood Gas Inspired Oxygen 50% 08/05/19 11:15: Glucometer 95 08/05/19 12:18: Blood Gas Puncture Site LT RAD, Blood Gas Patient Temperature 37.1, Arterial Blood pH 7.48H, Arterial Blood Partial Pressure CO2 29L, Arterial Blood Partial Pressure O2 56L, Arterial Blood HCO3 21L, Arterial Blood Total CO2 22.0, Arterial Blood Oxygen Saturation 92L, Arterial Blood Base Excess -1.8, Magrarito Test YES-POS, Blood Gas Ventilator Setting NO, Blood Gas Inspired Oxygen 25% 08/05/19 17:59: Glucometer 95 Microbiology 08/04/19 Blood Culture - Preliminary, Resulted No growth 08/04/19 Influenza Types A,B Antigen (HENRY) - Final, Complete 08/02/19 Urine Culture - Final, Complete NO GROWTH Assessment/Plan Assessment/Plan (1) Severe sepsis Status: Acute (2) Acute and chronic respiratory failure Status: Acute Assessment & Plan: 08/03: Dr Villafuerte managing, currently on vent, Rocephin and Azithromyocin, recent Flu A infection 08/04: Patient extubated, continue IV Rocephin and Azithromycin (3) Haemophilus infection Status: Acute (4) COPD (chronic obstructive pulmonary disease) Status: Chronic Qualifiers: Qualified Codes: J44.9 - Chronic obstructive pulmonary disease, unspecified (5) Metabolic acidosis Status: Acute (6) Influenza A Status: Resolved (7) DVT prophylaxis Status: Acute Assessment & Plan: [facility] Clinical Quality Measures DVT/VTE Risk/Contraindication: Risk Factor Score Per Nursin RFS Level Per Nursing on Admit: 4+=Very High LOUISE YANG MD Aug 05, 2019 22:10
[2019-08-06] VITALS (11 sets, daily range): BP systolic 121–172; BP diastolic 76–92
[2019-08-06] MEDS: RT-ALBUTEROL/IPRATROPIUM 3 ML (DUONEB) VIAL INH SCH ×6 (01:45→22:04)
[2019-08-06 03:38] LABS: BASOPHILS % (AUTO) 0 % (0-10); EOSINOPHILS % (AUTO) 0 % (0-10); HEMATOCRIT 34 % (40-54); HEMOGLOBIN 11.5 G/DL (13.3-17.7); LYMPHOCYTES # (AUTO) 0.8 X 10^3 (1.0-4.0); LYMPHOCYTES % (AUTO) 7 % (12-44); MEAN CORPUSCULAR HEMOGLOBIN 31 PG (25-34); MEAN CORPUSCULAR HGB CONC 34 G/DL (32-36); MEAN CORPUSCULAR VOLUME 92 FL (80-99); MONOCYTES # (AUTO) 0.9 X 10^3 (0.0-1.0); MONOCYTES % (AUTO) 8 % (0-12); NEUTROPHILS # (AUTO) 9.9 X 10^3 (1.8-7.8); NEUTROPHILS % (AUTO) 85 % (42-75); PLATELET COUNT 343 10^3/uL (130-400); RED CELL DISTRIBUTION WIDTH 13.4 % (10.0-14.5); WHITE BLOOD COUNT 11.7 10^3/uL (4.3-11.0)
[2019-08-06 03:53] LABS: BUN/CREATININE RATIO 19; CALCIUM 7.9 MG/DL (8.5-10.1); CARBON DIOXIDE 18 MMOL/L (21-32); CHLORIDE 108 MMOL/L (98-107); CREATININE SERUM 0.75 MG/DL (0.60-1.30); GFR ESTIMATED > 60; GLUCOSE 106 MG/DL (70-105); MAGNESIUM 2.1 MG/DL (1.6-2.4); PHOSPHORUS 1.8 MG/DL (2.3-4.7); SODIUM 139 MMOL/L (135-145)
[2019-08-06] MEDS: MAGNESIUM 1 GM/100 ML IVPB 100 ML IV SCH (05:29)
[2019-08-06] MEDS: methylPREDNISolone 40 MG/ML (Solu-MEDROL) VIAL IV SCH ×4 (05:29→23:52)
[2019-08-06] MEDS: KCL 20 MEQ TAB (K-DUR) PO SCH (05:29)
[2019-08-06] MEDS: inSUlin ASPART (NovoLOG) 1 UNIT/0.01 ML (CHARGE PER UNIT) SC SCH ×2 (05:29→12:05)
[2019-08-06] MEDS: POTASSIUM CL 10MEQ/50ML IVPB 50 ML IV SCH (05:41)
[2019-08-06] MEDS ORDERED: POTASSIUM PHOSPHATE INJ 30 MM in NS (IVPB) 250 ML IV ONE (06:45)
[2019-08-06] MEDS: RT-BUDESONIDE NEBS 0.5 MG/2ML (PULMICORT) AMP INH SCH ×2 (06:57→18:43)
--- NOTE | 2019-08-06 07:18 | Diagnostic Imaging Report ---
INDICATION: Postop. COMPARISON: 08/05/2019. FINDINGS: Right PICC line remains present unchanged. The lungs are well aerated. Aeration has improved in the left lung base. No acute infiltrates are present. No pneumothorax or pleural effusion. Heart is not enlarged. No evidence of congestive failure. IMPRESSION: Good aeration of the lungs with no acute infiltrates demonstrated. Dictated by: Dictated on workstation # [id number]
--- NOTE | 2019-08-06 07:25 | NUR ---
DISCONTINUED VAPOTHERM. PT IS ON 2L NC WITH SAT BETWEEN 88%-99% DEPENDING ON ANXIETY. Addendum: 08/06/19 at 0729 by SHEILA GRAY RT Amended: Links added.
[2019-08-06] MEDS ORDERED: KCL 20 MEQ TAB (K-DUR) PO ONE ×2 (07:30→09:30)
[2019-08-06] MEDS ORDERED: HALOPERIDOL 5 MG/ML (HALDOL) AMP ONE (07:55)
[2019-08-06] MEDS ORDERED: ONDANSETRON 4 MG/2 ML (SDV) Z0FRAN IVP PRN (08:00)
[2019-08-06] MEDS ORDERED: ONDANSETRON 4 MG/2 ML (SDV) Z0FRAN ONE (08:00)
[2019-08-06] MEDS ORDERED: PROMETHAZINE INJ 25 MG/ML (PHENERGAN) AMP ONE (08:00)
[2019-08-06] MEDS ORDERED: PROMETHAZINE INJ 25 MG/ML (PHENERGAN) AMP IVP PRN (08:00)
[2019-08-06] MEDS ORDERED: LORazepam INJ 2 MG/ML (ATIVAN) VIAL ONE (08:02)
--- NOTE | 2019-08-06 08:04 | Speech Therapy Progress Note ---
Therapy Progress Note attempted to complete the BDE with patient, however he was having a panic attack with multiple staff assisting him. The patient had taken a few sips of Sprite prior to my arrival. Patient stated he had some sputem come up and didn't think he could eat right now. will recheck patient this afternoon. PHOEBE IRENE Aug 06, 2019 08:04
[2019-08-06] MEDS: OSELTAMIVIR 75 MG (TAMIFLU) CAPSULE PO SCH ×2 (08:06→20:47)
[2019-08-06] MEDS: risperiDONE 1 MG (RisperDAL) TAB PO SCH ×2 (08:06→20:47)
[2019-08-06] MEDS: ENOXAPARIN 40 MG/0.4 ML (LOVENOX) SYR SC SCH (08:07)
[2019-08-06] MEDS: PANTOPRAZOLE 40 MG (PROTONIX) VIAL IV SCH (08:07)
[2019-08-06] MEDS: AZITHROMYCIN INJECTION 250 MG in NS (IVPB) 250 ML IV SCH (08:08)
[2019-08-06] MEDS ORDERED: LORazepam INJ 2 MG/ML (ATIVAN) VIAL IVP ONE (08:30)
[2019-08-06] MEDS ORDERED: HALOPERIDOL 5 MG/ML (HALDOL) AMP IV PRN (08:30)
[2019-08-06] MEDS ORDERED: HALOPERIDOL 5 MG/ML (HALDOL) AMP IV ONE (08:30)
--- NOTE | 2019-08-06 08:44 | Physical Therapy Evaluation ---
PT Evaluation-General Medical Diagnosis Admission Date Aug 02, 2019 at 10:36 Medical Diagnosis: ARF/sepsis/Influenza A Onset Date: Aug 02, 2019 Therapy Diagnosis Therapy Diagnosis: generalized weakness/debility Precautions Precautions/Isolations: Droplet Isolation, Fall Prevention, Pressure Ulcer Referral Physician: Emily Reason for Referral: Evaluation/Treatment Medical History Pertinent Medical History: Alcoholism, HTN, Smoking Additional Medical History drug use Current History recent hospital stay due to flu, went into respiratory failure requiring vent use Reviewed History: Yes Social History Home: Single Level Current Living Status: Other Family Prior Prior Level of Function SCALE: Activities may be completed with or without assistive devices. 1-Iwsyqczjrz-imftxob completes the activity by him/herself with no assistance from a helper. 5-Set-up or Clean-up Assistance-helper sets up or cleans up; patient completes activity. Anselmo assists only prior to or following the activity. 4-Supervision or Touching Assistance-helper provides verbal cues and/or touching/steadying and/or contact guard assistance as patient completes activity. Assistance may be provided throughout the activity or intermittently. 3-Partial/Moderate Assistance-helper does LESS THAN HALF the effort. Anselmo lifts, holds or supports trunk or limbs, but provides less than half the effort. 2-Substantial/Maximal Assistance-helper does MORE THAN HALF the effort. Anselmo lifts or holds trunk or limbs and provides more than half the effort. 1-Cjuphvwke-wdzzjs does ALL the effort. Patient does none of the effort to complete the activity. Or, the assistance of 2 or more helpers is required for the patient to complete the activity. If activity was not attempted, code reason: 7-Patient Refused. 9-Not Applicable-not attempted and the patient did not perform the activity before the current illness, exacerbation or injury. 10-Not Attempted due to Environmental Limitations-(lack of equipment, weather restraints, etc.). 88-Not Attempted due to Medical Conditions or Safety Concerns. Bed Mobility: 6 Transfers (B,C,W/C): 6 Gait: 6 Stairs: 6 Indoor Mobility (Ambulation): Independent Stairs: Independent Prior Devices Use: None PT Evaluation-Current Subjective Patient is in bed and confused and reports he is anxious. Agrees to PT. RN present. Pain Numeric Pain Scale: 0-No Pain Location: No Pain Reported Objective Patient Orientation: Person, Time, Situation Attachments: Oxygen, Hicks Catheter, IV ROM/Strength ROM Lower Extremities bilateral LE WFL Strength Lower Extremities 3/5 grossly bilateral LE Integumentary/Posture Integumentary refer to nursing notes Bowel Incontinence: Yes Bladder Incontinence: Hicks Cath Posture trunk flexed posture Neuromuscular (Tone, Coordination, Reflexes) diminish coordination due to weakness and deconditioned state Sensory Vision: Functional Hearing: Functional Sensation Right Lower Extremit: Intact Sensation Left Lower Extremity: Intact Transfers Roll Left to Right (QC): 3 Sit to Lying (QC): 3 Lying to Sitting/Side of Bed(Q: 3 Sit to Stand (QC): 3 Chair/Eqx-km-Jdgcr Xfer(QC): 3 Gait Does the Patient Walk?: No and Walking Goal IS indicated Mode of Locomotion: Walk Anticipated Mode of Locomotion: Walk Distance: 3 steps Balance Sitting Static: Fair Sitting Dynamic: Fair Standing Static: Fair Standing Dynamic: Fair Assessment/Needs 59 y.o. male, will benefit from skilled PT to address functional strength and mobility to improve current LOF to safely return to home at maximum LOF. Rehab Potential: Fair Post Rehab Potential-Barriers: compliance PT Product Support Sales Representative Goals Senior Care Goals PT Product Support Sales Representative Goals Time Frame: Aug 30, 2019 Roll Left & Right (QC): 6 Sit to Lying (QC): 6 Lying-Sitting on Side/Bed(QC): 6 Sit to Stand (QC): 6 Chair/Uua-yj-Ulqit Xfer(QC): 6 Toilet Transfer (QC): 6 Does the Patient Walk: Yes Walk 10 feet (QC): 6 Walk 50ft with 2 Turns (QC): 6 Walk 150 ft (QC): 6 PT Plan Problem List Problem List: Activity Tolerance, Functional Strength, Safety, Balance, Gait, Transfer, Bed Mobility Treatment/Plan Treatment Plan: Continue Plan of Care Treatment Plan: Bed Mobility, Education, Functional Activity Meño, Functional Strength, Gait, Safety, Therapeutic Exercise, Transfers Treatment Duration: Aug 30, 2019 Frequency: 5 times per week Estimated Hrs Per Day: .25 hour per day Patient and/or Family Agrees t: Yes Safety Risks/Education Patient Education: Transfer Techniques, Safety Issues Teaching Recipient: Patient Teaching Methods: Demonstration, Discussion Response to Teaching: Reinforcement Needed Time/GCodes Time In: 811 Time Out: 825 Total Billed Treatment Time: 14 Total Billed Treatment 1 visit EVMod 14 min ZANA MAR PT Aug 06, 2019 08:44
[2019-08-06] MEDS ORDERED: cefTRIAXone FOR IV USE 2,000 MG in WATER (STERILE) FOR INJECTION 20 ML IV SCH (09:00)
--- NOTE | 2019-08-06 11:33 | ST Dysphagia Evaluation ---
Speech Evaluation-General Medical Diagnosis ARF/sepsis/Influenza A Onset Date: Aug 02, 2019 Therapy Diagnosis Therapy Diagnosis: Cognitive-communication Precautions Precautions: Aspiration Referral Referring Physician: Dr. Villafuerte Medical History Pertinent Medical History: Alcoholism, HTN, Smoking Reviewed History: Yes Social History Current Living Status: Other Family Speech PLF/Current-Dysphagia Prior Level of Function Patient was able to eat whatever he wanted prior to becoming ill with the flu. Subjective Patient was cooperative with the Bedside Dysphagia Evaluation. Cognitive Status Patient Orientation: Person, Place, Situation Oral Motor Skills Dentition: Edentalous, Natural, Tumbled, Stained Current Food Consistancy: Thin Liquids Ability to Follow Directions: Good Patient was NPO pending BDE Oral Expression Ability: No Impairment Voice Voice Phonatory-Based Quality: Breathy, Hoarse Voice Pitch: Normal Voice Loudness: Mildly Soft/Quiet Face Facial Symmetry: Symmetrical Oral-Facial Assessment Oral-Facial Dentition: Normal Labial Seal Description: Normal Smile: Normal Puff Cheeks: Normal Lingual Protrusion: Normal Lingual ROM: Normal Lingual Strength: Normal Pharynx Velopharyngeal Move.: Normal Volitional Dry Swallow: Yes Voluntary Cough: Yes Can Clear Throat Volitionally: Yes Dysphagia Evaluation Consistencies Presented: Regular, Thin Liquid, Mechanical Soft, Pureed Oral phase within normal range of function. Pharyngeal phase within normal range of function. Dietary Recommendations: Regular Liquid Recommendations: Thin Swallowing Precautions: Alternate Liquids/Solids, Double Swallow, Decreased Bolus 1/2 Tsp, Liquids from Straw, Small Bites and Sips, Sitting Upright 90 Degrees, Sitting 90 Degrees 30 Post Intake Dysphagia Evaluation Summary Patient was admitted to the hospital following a recent admit for fluA. The patient completed the Bedside Dysphagia Evaluation with small sips of thin liquids via straw without difficulty. Puree, mechanical soft and regular textures presented at 1/2 tsp bite size without difficulty. Patient exhibits normal function for oral and pharyngeal phases without s/s of aspiration. The patient is recommended for regular with thin. This was provided to his nurse and written on the white board in his room. Barriers to Learning Patient has anxiety Speech-Plan Patient/Family Goals Patient/Family Goals: Patient plans on returning to his home upon hospital discharge. Treatment Plan Speech Therapy Treatment Plan: Discontinue ST Treatment Duration: Aug 06, 2019 Frequency: 1 time per week Estimated Hrs Per Day: .25 hour per day Rehab Potential: Fair Barriers to Learning: Patient has anxiety Pt/Family Agrees to Plan: Yes Safety Risks/Education Teaching Recipient: Patient Teaching Methods: Demonstration, Discussion Response to Teaching: Verbalize Understanding, Return Demonstration Education Topics Provided: Safety of oral intake and diet level Time Speech Therapy Time In: 10:15 Speech Therapy Time Out: 10:30 Total Billed Time: 15 Billed Treatment Time 1RENEA [address] ST Aug 06, 2019 11:33
--- NOTE | 2019-08-06 12:00 | NUR ---
REPORT RECEIVED FROM OTIS QUINTANA IN ICU.
--- NOTE | 2019-08-06 12:35 | NUR ---
PT ICU TRANSFER TO ROOM 417. PT A/O. DENIES ANY PAIN AT THIS TIME. ORIENTED PT TO ROOM AND CALL LIGHT. BED ALARM ON. PT ASSESSED, AGREE WITH PREVIOUS COMPLEX MANAGER.
--- NOTE | 2019-08-06 14:17 | Occupational Therapy Eval ---
OT Evaluation-General/PLF Medical Diagnosis Admission Date Aug 02, 2019 at 10:36 Medical Diagnosis: ARF/sepsis/Influenza A Onset Date: Aug 02, 2019 Therapy Diagnosis Therapy Diagnosis: Decreased ADL status Precautions Precautions/Isolations: Droplet Isolation, Fall Prevention, Pressure Ulcer Safety Interventions: Reorient-PRN Referral Physician: Emily Referral Reason: Activity Tolerance, Self Care, Evaluation/Treatment, Strengthening/ROM Medical History Pertinent Medical History: Alcoholism, HTN, Smoking Current History Pt intubated 08/03, extubated 08/05. Pt dx with sepsis/ influenza A Reviewed History: Yes Social History Home: Single Level Current Living Status: Other Family Steps Into Home: 0 ADL-Prior Level of Function SCALE: Activities may be completed with or without assistive devices. 8-Odwchviygx-evkbfct completes the activity by him/herself with no assistance from a helper. 5-Set-up or Clean-up Assistance-helper sets up or cleans up; patient completes activity. [place] assists only prior to or following the activity. 4-Supervision or Touching Assistance-helper provides verbal cues and/or touching/steadying and/or contact guard assistance as patient completes activity. Assistance may be provided throughout the activity or intermittently. 3-Partial/Moderate Assistance-helper does LESS THAN HALF the effort. [place] lifts, holds or supports trunk or limbs, but provides less than half the effort. 2-Substantial/Maximal Assistance-helper does MORE THAN HALF the effort. [place] lifts or holds trunk or limbs and provides more than half the effort. 6-Ijojimflm-mbzvly does ALL the effort. Patient does none of the effort to complete the activity. Or, the assistance of 2 or more helpers is required for the patient to complete the activity. If activity was not attempted, code reason: 7-Patient Refused. 9-Not Applicable-not attempted and the patient did not perform the activity before the current illness, exacerbation or injury. 10-Not Attempted due to Environmental Limitations-(lack of equipment, weather restraints, etc.). 88-Not Attempted due to Medical Conditions or Safety Concerns. ADL PLOF Comments Pt expresses IND with ADLs with no use of AE Self Care: Independent Functional Cognition: Independent DME/Equipment: Tub/Shower Occupation: self employed artist (sketches/ paints) Drive Self: No (does not own car) OT Current Status Subjective Pt seen sitting upright in bed with HOB ~80*. Pt eating. Pt expresses agreement to OT eval/ treat. Pt denies current pain, states weakness BUE. Mental Status/Objective Patient Orientation: Person, Place, Situation Attachments: Oxygen (2L) Current Hearing Aids: No Dentures/Partials: No Hand Dominance: Right Upper Extremity ROM WFL BUE (full PROM) Upper Extremity Coordination WFL, though increased time needed. Upper Extremity Sensation WFL no c/o paresthesias Upper Extremity Strength Decreased BUE (3+/5) ADL-Treatment Eating (QC): 3 (Pt requires assist with bringing cup to mouth as he is unable to grasp glass cup and hold steady. OT places straw and pt able to drink from straw with assist for holding due to decreased strength) Shower/Bathe Self (QC): 7 Upper Body Dressing (QC): 7 Lower Body Dressing (QC): 7 On/Off Footwear (QC): 7 Other Treatments Pt seen in bed, pt provides hx with accuracy. Pt lives home alone, pt's mother/ father and siblings live close by though pt did not require assist outside of home. Pt states he does not own car, walks where needed (no AE used). Pt expresses no desire for OOB/ no ADLs at the time. Pt eating, requires assist with drinking (above). Pt completes MMT/ ROM screening. Pt educated on OT role/ continuation of ADL/ ex training to work towards higher IND at home. Pt agrees. All needs met, call light in reach. Education OT Patient Education: Correct positioning, Purpose of tx/functional activities, Rehab process Teaching Recipient: Patient Teaching Methods: Demonstration, Discussion Response to Teaching: Verbalize Understanding, Return Demonstration OT Short Term Goals Short Term Goals Eatin Oral hygiene: 3 Upper body dressin OT Prison Goals Prison Goals Time Frame: Aug 20, 2019 Eating (QC): 6 Oral Hygiene (QC): 6 Toileting Hygiene (QC): 6 Shower/Bathe Self (QC): 6 Upper Body Dressing (QC): 6 Lower Body Dressing (QC): 6 On/Off Footwear (QC): 6 Additional Goals: 1-Demonstrate ADL Tasks, 2-Verbalize Understanding, 3-ImproveStrength/Meño 1=Demonstrate adherence to instructed precautions during ADL tasks. 2=Patient will verbalize/demonstrate understanding of assistive devices/modifications for ADL. 3=Patient will improve strength/tolerance for activity to enable patient to perform ADL's. OT Education/Plan Problem List/Assessment Assessment: Decreased Activ Tolerance, Decreased UE Strength, Dependent Transfers, Impaired Coordination, Impaired Funct Balance, Impaired I ADL's, Impaired Self-Care Skills Discharge Recommendations Plan/Recommendations: Continue POC Therapy Discharge Recommendati: Post Acute OT Treatment Plan/Plan of Care Treatment,Training & Education: Yes Patient would benefit from OT for education, treatment and training to promote independence in ADL's, mobility, safety and/or upper extremity function for ADL's. Plan of Care: ADL Retraining, Functional Mobility, UE Funct Exercise/Act Treatment Duration: Aug 20, 2019 Frequency: 5 times per week Estimated Hrs Per Day: .25 hour per day Agreement: Yes Rehab Potential: Good Time/GCodes Start Time: 13:10 Stop Time: 13:22 Total Time Billed (hr/min): 12 Billed Treatment Time 1, EVM (12) JERROD WILLIS OTLidia Aug 06, 2019 14:17
[2019-08-06] MEDS: ALPRAZolam 0.5 MG (XANAX) TAB PO PRN ×2 (15:17→23:52)
--- NOTE | 2019-08-06 18:41 | Progress Note ---
Subjective Subjective/Events-last exam Patient more comfortable this AM. States that he still feels shortness of breath. Denies any chest pain. Tolerating PO diet and was able to transfer x 1 assist to chair Review of Systems Pulmonary: Dyspnea, Cough Cardiovascular: No: Chest Pain, Palpitations Gastrointestinal: No: Nausea, Vomiting, Abdominal Pain, Diarrhea, Constipation Neurological: Weakness, Incoordination Focused Exam Lactate Level 08/04/19 05:18: Lactic Acid Level 1.78 Time of Focused Exam: 10:45 Objective Exam Last Set of Vital Signs Vital Signs Date Time Temp Pulse Resp B/P (MAP) Pulse Ox O2 Delivery O2 Flow Rate FiO2 08/06/19 16:00 37.6 109 20 167/82 (110) 96 08/06/19 14:33 Nasal Cannula 2.00 08/06/19 04:00 25 Capillary Refill : Less Than 3 Seconds I&O Intake and Output 08/06/19 00:00 Intake Total 835 ml Output Total 3553 ml Balance -2718 ml Intake Oral 300 ml IV Total 535 ml Output Urine Total 3300 ml Stool Total 3 ml Gastric Drainage Total 250 ml General: Alert, Cooperative, No Acute Distress Lungs: Normal Air Movement, Other (basilar wheezing, normal work of breathing) Heart: Regular Rate, No Murmurs Abdomen: Normal Bowel Sounds, Soft, No Tenderness, No Masses Extremities: No Edema, No Tenderness/Swelling Skin: No Rashes, No Breakdown Neuro: Normal Speech, Cranial Nerves 3-12 NL Results/Procedures Lab Laboratory Tests 08/05/19 22:52: Glucometer 155H 08/06/19 03:18: White Blood Count 11.7H, Red Blood Count 3.67L, Hemoglobin 11.5L, Hematocrit 34L , Mean Corpuscular Volume 92, Mean Corpuscular Hemoglobin 31, Mean Corpuscular Hemoglobin Concent 34, Red Cell Distribution Width 13.4, Platelet Count 343, Mean Platelet Volume 10.0, Neutrophils (%) (Auto) 85H, Lymphocytes (%) (Auto) 7L , Monocytes (%) (Auto) 8, Eosinophils (%) (Auto) 0, Basophils (%) (Auto) 0, Neutrophils # (Auto) 9.9H, Lymphocytes # (Auto) 0.8L, Monocytes # (Auto) 0.9, Eosinophils # (Auto) 0.0, Basophils # (Auto) 0.0, Sodium Level 139, Potassium Level 3.0L, Chloride Level 108H, Carbon Dioxide Level 18L, Anion Gap 13, Blood Urea Nitrogen 14, Creatinine 0.75, Estimat Glomerular Filtration Rate > 60, BUN/Creatinine Ratio 19, Glucose Level 106H, Calcium Level 7.9L, Phosphorus Level 1.8L, Magnesium Level 2.1, Triglycerides Level 230H 08/06/19 05:19: Glucometer 116H 08/06/19 12:01: Glucometer 106 Microbiology 08/04/19 Blood Culture - Preliminary, Resulted No growth 08/04/19 Influenza Types A,B Antigen ([facility]) - Final, Complete 08/02/19 Urine Culture - Final, Complete NO GROWTH Assessment/Plan Assessment/Plan (1) Severe sepsis Status: Resolved (2) Acute and chronic respiratory failure Status: Acute Assessment & Plan: 08/03: Dr Villafuerte managing, currently on vent, Rocephin and Azithromyocin, recent Flu A infection 08/04: Patient extubated, continue IV Rocephin and Azithromycin 08/05: Titrated to NC 2 LPM, continue to titrate as tolerated, increase activity and OOB (3) Haemophilus infection Status: Acute (4) COPD (chronic obstructive pulmonary disease) Status: Chronic Qualifiers: Qualified Codes: J44.9 - Chronic obstructive pulmonary disease, unspecified (5) Metabolic acidosis Status: Resolved (6) Influenza A Status: Acute Assessment & Plan: 08/05: Initial screening in ER was neg, Resp panel returned today with Inf A +, Continue Tamiflu per Dr Villafuerte, Patient back on precautions (7) DVT prophylaxis Status: Acute Assessment & Plan: Lovenox Clinical Quality Measures DVT/VTE Risk/Contraindication: Risk Factor Score Per Nursin RFS Level Per Nursing on Admit: 4+=Very High LOUISE YANG MD Aug 06, 2019 18:41
[2019-08-07] VITALS (8 sets, daily range): BP systolic 141–169; BP diastolic 75–94
[2019-08-07] MEDS: RT-ALBUTEROL/IPRATROPIUM 3 ML (DUONEB) VIAL INH SCH ×5 (02:01→21:24)
[2019-08-07] MEDS: morphine INJ 4 MG/ML 1 ML (VIAL/SYRINGE) IVP PRN (05:22)
[2019-08-07 05:41] LABS: BASOPHILS % (AUTO) 0 % (0-10); EOSINOPHILS % (AUTO) 0 % (0-10); HEMATOCRIT 34 % (40-54); HEMOGLOBIN 11.7 G/DL (13.3-17.7); LYMPHOCYTES # (AUTO) 0.7 X 10^3 (1.0-4.0); LYMPHOCYTES % (AUTO) 6 % (12-44); MEAN CORPUSCULAR HEMOGLOBIN 32 PG (25-34); MEAN CORPUSCULAR HGB CONC 34 G/DL (32-36); MEAN CORPUSCULAR VOLUME 93 FL (80-99); MEAN PLATELET VOLUME 9.3 FL (7.4-10.4); MONOCYTES % (AUTO) 8 % (0-12); NEUTROPHILS # (AUTO) 9.7 X 10^3 (1.8-7.8); NEUTROPHILS % (AUTO) 86 % (42-75); PLATELET COUNT 343 10^3/uL (130-400); RED CELL DISTRIBUTION WIDTH 13.8 % (10.0-14.5); WHITE BLOOD COUNT 11.3 10^3/uL (4.3-11.0)
[2019-08-07] MEDS: methylPREDNISolone 40 MG/ML (Solu-MEDROL) VIAL IV SCH (06:02)
[2019-08-07 06:06] LABS: BUN/CREATININE RATIO 14; CALCIUM 8.4 MG/DL (8.5-10.1); CARBON DIOXIDE 20 MMOL/L (21-32); CHLORIDE 108 MMOL/L (98-107); CREATININE SERUM 0.71 MG/DL (0.60-1.30); GFR ESTIMATED > 60; GLUCOSE 109 MG/DL (70-105); MAGNESIUM 2.1 MG/DL (1.6-2.4); PHOSPHORUS 2.9 MG/DL (2.3-4.7); POTASSIUM 4.1 MMOL/L (3.6-5.0); SODIUM 139 MMOL/L (135-145)
[2019-08-07] MEDS: OSELTAMIVIR 75 MG (TAMIFLU) CAPSULE PO SCH ×2 (10:07→21:21)
[2019-08-07] MEDS: AZITHROMYCIN 250 MG TAB (ZITHROMAX) PO SCH (10:07)
[2019-08-07] MEDS: ENOXAPARIN 40 MG/0.4 ML (LOVENOX) SYR SC SCH (10:07)
[2019-08-07] MEDS: risperiDONE 1 MG (RisperDAL) TAB PO SCH ×2 (10:07→21:21)
[2019-08-07] MEDS: PANTOPRAZOLE 40 MG (PROTONIX) VIAL IV SCH (10:07)
[2019-08-07] MEDS: cefTRIAXone FOR IV USE 2,000 MG in WATER (STERILE) FOR INJECTION 20 ML IV SCH (10:08)
[2019-08-07] MEDS: RT-BUDESONIDE NEBS 0.5 MG/2ML (PULMICORT) AMP INH SCH ×2 (11:27→18:20)
--- NOTE | 2019-08-07 11:41 | Physical Therapy Daily Note ---
PT Daily Note-Current Subjective No pain reported but some nausea. Appearance Patient returned to bed with call light and tray in reach. Rails up at patient's request. Mental Status Patient Orientation: Person, Place, Eyes Open Attachments: Hicks Catheter, IV Transfers SCALE: Activities may be completed with or without assistive devices. 5-Avzwmsrtou-rsrxbdm completes the activity by him/herself with no assistance from a helper. 5-Set-up or Clean-up Assistance-helper sets up or cleans up; patient completes activity. [place] assists only prior to or following the activity. 4-Supervision or Touching Assistance-helper provides verbal cues and/or touching/steadying and/or contact guard assistance as patient completes activity. Assistance may be provided throughout the activity or intermittently. 3-Partial/Moderate Assistance-helper does LESS THAN HALF the effort. [place] lifts, holds or supports trunk or limbs, but provides less than half the effort. 2-Substantial/Maximal Assistance-helper does MORE THAN HALF the effort. [place] lifts or holds trunk or limbs and provides more than half the effort. 8-Rcngdbrtp-pvxhtr does ALL the effort. Patient does none of the effort to complete the activity. Or, the assistance of 2 or more helpers is required for the patient to complete the activity. If activity was not attempted, code reason: 7-Patient Refused. 9-Not Applicable-not attempted and the patient did not perform the activity before the current illness, exacerbation or injury. 10-Not Attempted due to Environmental Limitations-(lack of equipment, weather restraints, etc.). 88-Not Attempted due to Medical Conditions or Safety Concerns. Sit to Lying (QC): 4 (SBA) Sit to Stand (QC): 4 (GA) Chair/Cey-ay-Qfcsa Xfer(QC): 4 (CGA) Gait Training Does the Patient Walk?: Yes Distance: 15 Walk 10 feet (QC): 4 (CGA) Walk 50 ft with 2 Turns(QC): 88 Walk 150 ft (QC): 88 Gait Assistive Device: FWW Patient became slightly winded and had to take deep breaths post this activity. Verbal cues for safe mechanics Exercises Seated Therapy Exercises: Ankle pumps (20), Long arc quads, Hip flexion, Hip abd/add Seated Reps: 10 Standing: Mini squats, Side steps (5) Standing Reps: 10 Assessment Current Status: Good Progress Patient is motivated to complete session but has to be educated not to do too much at one time due to SOB. PT Custodial Goals Custodial Goals PT License And Permit Specialist Goals Time Frame: Aug 30, 2019 Roll Left & Right (QC): 6 Sit to Lying (QC): 6 Lying-Sitting on Side/Bed(QC): 6 Sit to Stand (QC): 6 Chair/Umx-ip-Zndwh Xfer(QC): 6 Toilet Transfer (QC): 6 Does the Patient Walk: Yes Walk 10 feet (QC): 6 Walk 50ft with 2 Turns (QC): 6 Walk 150 ft (QC): 6 PT Plan Problem List Problem List: Activity Tolerance, Functional Strength, Safety, Balance, Gait, Transfer, Bed Mobility, ROM, Other Treatment/Plan Treatment Plan: Continue Plan of Care Treatment Plan: Bed Mobility, Education, Functional Activity Meño, Functional Strength, Gait, Safety, Therapeutic Exercise, Transfers Treatment Duration: Aug 30, 2019 Frequency: 5 times per week Estimated Hrs Per Day: .25 hour per day Patient and/or Family Agrees t: Yes Safety Risks/Education Patient Education: Gait Training, Transfer Techniques, Correct Positioning, Disease Process, Safety Issues Teaching Recipient: Patient Teaching Methods: Demonstration, Discussion, Audiovisual Response to Teaching: Verbalize Understanding, Return Demonstration, Reinforcem ent Needed Time/GCodes Time In: 1054 Time Out: 1115 Total Billed Treatment Time: 21 Total Billed Treatment 1 visit FA 21 ZANA MAR PT Aug 07, 2019 11:41
--- NOTE | 2019-08-07 11:44 | Occupational Ther Daily Note ---
OT Current Status-Daily Note Subjective Pt seen reclined in bed. Pt agreeable to OT tx session, denies pain but states SOB during exercises. Mental Status/Objective Patient Orientation: Person, Place, Situation, Normal For Age Attachments: [place] Catheter, Oxygen (2L), Telemetry ADL-Treatment Therapy Code Descriptions/Definitions Functional [place] Measure: 0=Not Assessed/NA 4=Minimal Assistance 1=Total Assistance 5=Supervision or Setup 2=Maximal Assistance 6=Modified [place] 3=Moderate Assistance 7=Complete IndependenceSCALE: Activities may be completed with or without assistive devices. 4-Xjgtrrkcfz-qqwzqlj completes the activity by him/herself with no assistance from a helper. 5-Set-up or Clean-up Assistance-helper sets up or cleans up; patient completes activity. [place] assists only prior to or following the activity. 4-Supervision or Touching Assistance-helper provides verbal cues and/or touching/steadying and/or contact guard assistance as patient completes activity. Assistance may be provided throughout the activity or intermittently. 3-Partial/Moderate Assistance-helper does LESS THAN HALF the effort. [place] lifts, holds or supports trunk or limbs, but provides less than half the effort. 2-Substantial/Maximal Assistance-helper does MORE THAN HALF the effort. [place] lifts or holds trunk or limbs and provides more than half the effort. 9-Utowbcpgv-ttcosg does ALL the effort. Patient does none of the effort to co mplete the activity. Or, the assistance of 2 or more helpers is required for the patient to complete the activity. If activity was not attempted, code reason: 7-Patient Refused. 9-Not Applicable-not attempted and the patient did not perform the activity before the current illness, exacerbation or injury. 10-Not Attempted due to Environmental Limitations-(lack of equipment, weather restraints, etc.). 88-Not Attempted due to Medical Conditions or Safety Concerns. Eating (QC): 6 Oral Hygiene (QC): 7 Shower/Bathe Self (QC): 7 Other Treatment Pt completes Bed mob with SBA, sits EOB and completes UE theraband exercises with cues for positioning and tension. Pt completes 10 reps bilaterally: horizontal abduction, horizontal adduction, shoulder scaption, shoulder external rotation. Pt requires rest break, stating minimal nausea/ SOB. Pt recovers less than minute break, no SOB noted. Pt educated to complete 2x per day. Pt left EOB with PT student. Pt requests sprite for nausea, nursing asked and sprite supplied to pt. All needs met. Education OT Patient Education: Correct positioning, Exercise program, Home exercise program Teaching Recipient: Patient Teaching Methods: Demonstration, Discussion Response to Teaching: Verbalize Understanding, Return Demonstration OT Short Term Goals Short Term Goals Eatin Oral hygiene: 3 Upper body dressin OT [facility] Goals [facility] Goals Time Frame: Aug 20, 2019 Eating (QC): 6 Oral Hygiene (QC): 6 Toileting Hygiene (QC): 6 Shower/Bathe Self (QC): 6 Upper Body Dressing (QC): 6 Lower Body Dressing (QC): 6 On/Off Footwear (QC): 6 Additional Goals: 1-Demonstrate ADL Tasks, 2-Verbalize Understanding, 3-ImproveStrength/Meño 1=Demonstrate adherence to instructed precautions during ADL tasks. 2=Patient will verbalize/demonstrate understanding of assistive devices/modifications for ADL. 3=Patient will improve strength/tolerance for activity to enable patient to perform ADL's. OT Education/Plan Problem List/Assessment Assessment: Decreased Activ Tolerance, Decreased UE Strength, Impaired I ADL's, Impaired Self-Care Skills Discharge Recommendations Plan/Recommendations: Continue POC Therapy Discharge Recommendati: Intermittent Supervision, Post Acute OT Treatment Plan/Plan of Care Treatment,Training & Education: Yes Patient would benefit from OT for education, treatment and training to promote independence in ADL's, mobility, safety and/or upper extremity function for ADL's. Plan of Care: ADL Retraining, Functional Mobility, UE Funct Exercise/Act Treatment Duration: Aug 20, 2019 Frequency: 5 times per week Estimated Hrs Per Day: .25 hour per day Agreement: Yes Rehab Potential: Good Time/GCodes Start Time: 10:42 Stop Time: 10:57 Total Time Billed (hr/min): 15 Billed Treatment Time 1, EX (15) JERROD WILLIS OTR Aug 07, 2019 11:44
--- NOTE | 2019-08-07 13:24 | NUR ---
"RD ASSESSMENT PMHx: COPD; hypercholesterolemia; HTN PT INTERACTION: Pt was awake and pleasant during nutrition assessment. Pt states current appetite is pretty good. Note avg PO intake of 25% x2meal, per chart review. Pt states following a regular diet at home and has no issues with chewing/swallowing food. Pt states recent issues with nausea, but not vomiting. Pt states recent episodes of diarrhea, and that his last BM was 08/06. Note pt not currently on bowel regimen per chart review. Pt states no recent wt changes. Note unable to determine recent wt hx, per chart review. ABNORMAL NUTRITION-RELATED LAB VALUES LOW: Ca 8.4 HIGH: Cl 108; glu 109 Est. kcal needs: 4081-7717 kcal | 25-30 kcal/kg Est. Pro needs: 58-72 g Pro | 0.8-1.0 g Pro/kg PES STATEMENT: Inadequate oral intake (NI-2.1) related to loss of appetite | nausea | diarrhea as evidenced by pt interview | avg PO intake 25% x2meal INTERVENTION: Continue with current diet order of Regular diet. Add Ensure Enlive (vary) to meals TID, for increased kcal intake. Provides 350 kcal and 13 g Pro per serving. Will continue to follow and reassess as pt needs, intake, and status change. MONITOR/EVALUATE: PO Intake; Plan of Care; Hydration Status; Weight Status; Lab Values Holly Whitman, , RD, LD"
[2019-08-07] MEDS: ACETAMINOPHEN 500 MG TAB (TYLENOL) PO PRN (16:49)
--- NOTE | 2019-08-07 21:18 | Progress Note ---
Subjective Subjective/Events-last exam Patient states that he feels much better. Just got done with walking with PT and did much better. Tolerating PO diet and BM last night Review of Systems Pulmonary: Dyspnea, Cough Cardiovascular: No: Chest Pain, Palpitations Gastrointestinal: Nausea; No: Vomiting, Abdominal Pain, Diarrhea, Constipation Neurological: Weakness, Incoordination Focused Exam Time of Focused Exam: 10:45 Objective Exam Last Set of Vital Signs Vital Signs Date Time Temp Pulse Resp B/P (MAP) Pulse Ox O2 Delivery O2 Flow Rate FiO2 08/07/19 20:04 36.8 88 18 153/81 (105) 96 Room Air 08/07/19 12:18 1.00 08/06/19 04:00 25 Capillary Refill : Less Than 3 Seconds I&O Intake and Output 08/07/19 00:00 Intake Total 2460 ml Output Total 1700 ml Balance 760 ml Intake Oral 2440 ml IV Total 20 ml Output Urine Total 1700 ml General: Alert, Oriented X3, Cooperative Lungs: Other (basilar crackles, normal work of breathing, shortness of breath with exertion) Heart: Regular Rate, No Murmurs Abdomen: Normal Bowel Sounds, Soft, No Tenderness, No Masses Extremities: No Edema, No Tenderness/Swelling Skin: No Rashes, No Breakdown Neuro: Sensation Intact, Cranial Nerves 3-12 NL Results/Procedures Lab Laboratory Tests 08/07/19 05:30: White Blood Count 11.3H, Red Blood Count 3.65L, Hemoglobin 11.7L, Hematocrit 34L , Mean Corpuscular Volume 93, Mean Corpuscular Hemoglobin 32, Mean Corpuscular Hemoglobin Concent 34, Red Cell Distribution Width 13.8, Platelet Count 343, M anusha Platelet Volume 9.3, Neutrophils (%) (Auto) 86H, Lymphocytes (%) (Auto) 6L, Monocytes (%) (Auto) 8, Eosinophils (%) (Auto) 0, Basophils (%) (Auto) 0, Neutrophils # (Auto) 9.7H, Lymphocytes # (Auto) 0.7L, Monocytes # (Auto) 1.0, Eosinophils # (Auto) 0.0, Basophils # (Auto) 0.0, Sodium Level 139, Potassium Level 4.1, Chloride Level 108H, Carbon Dioxide Level 20L, Anion Gap 11, Blood Urea Nitrogen 10, Creatinine 0.71, Estimat Glomerular Filtration Rate > 60, BUN/Creatinine Ratio 14, Glucose Level 109H, Calcium Level 8.4L, Phosphorus Level 2.9, Magnesium Level 2.1 Microbiology 08/04/19 Blood Culture - Preliminary, Resulted No growth 08/04/19 Influenza Types A,B Antigen ([facility]) - Final, Complete 08/02/19 Urine Culture - Final, Complete NO GROWTH Assessment/Plan Assessment/Plan (1) Severe sepsis Status: Resolved (2) Acute and chronic respiratory failure Status: Acute Assessment & Plan: 08/03: Dr Villafuerte managing, currently on vent, Rocephin and Azithromyocin, recent Flu A infection 08/04: Patient extubated, continue IV Rocephin and Azithromycin 08/05: Titrated to NC 2 LPM, continue to titrate as tolerated, increase activity and OOB 08/06: Continue to titrate oxygen, Patient may need oxygen at home (3) Haemophilus infection Status: Acute (4) COPD (chronic obstructive pulmonary disease) Status: Chronic Assessment & Plan: 08/05: Transitioned to PO steroids Qualifiers: Qualified Codes: J44.9 - Chronic obstructive pulmonary disease, unspecified (5) Metabolic acidosis Status: Resolved (6) Influenza A Status: Acute Assessment & Plan: 08/05: Initial screening in ER was neg, Resp panel returned today with Inf A +, Continue Tamiflu per Dr Villafuerte, Patient back on precautions (7) DVT prophylaxis Status: Acute Assessment & Plan: Lovenox Clinical Quality Measures DVT/VTE Risk/Contraindication: Risk Factor Score Per Nursin RFS Level Per Nursing on Admit: 4+=Very High LOUISE YANG MD Aug 07, 2019 21:18
[2019-08-07] MEDS: TAMSULOSIN 0.4 MG (FLOMAX) CAP PO SCH (22:21)
[2019-08-08 00:27] VITALS: BP 123/90
[2019-08-08] MEDS: ACETAMINOPHEN 500 MG TAB (TYLENOL) PO PRN ×2 (00:50→20:32)
[2019-08-08] MEDS: RT-ALBUTEROL/IPRATROPIUM 3 ML (DUONEB) VIAL INH SCH ×6 (01:22→23:18)
[2019-08-08] MEDS: ALPRAZolam 0.5 MG (XANAX) TAB PO PRN ×2 (03:11→20:32)
[2019-08-08 04:15] VITALS: BP 105/81
[2019-08-08 04:31] LABS: BASOPHILS % (AUTO) 0 % (0-10); EOSINOPHILS # (AUTO) 0.1 10^3/uL (0.0-0.3); EOSINOPHILS % (AUTO) 1 % (0-10); HEMATOCRIT 38 % (40-54); HEMOGLOBIN 12.9 G/DL (13.3-17.7); LYMPHOCYTES # (AUTO) 1.7 X 10^3 (1.0-4.0); LYMPHOCYTES % (AUTO) 21 % (12-44); MEAN CORPUSCULAR HEMOGLOBIN 31 PG (25-34); MEAN CORPUSCULAR HGB CONC 34 G/DL (32-36); MEAN CORPUSCULAR VOLUME 93 FL (80-99); MEAN PLATELET VOLUME 9.7 FL (7.4-10.4); MONOCYTES # (AUTO) 0.8 X 10^3 (0.0-1.0); MONOCYTES % (AUTO) 10 % (0-12); NEUTROPHILS # (AUTO) 5.5 X 10^3 (1.8-7.8); NEUTROPHILS % (AUTO) 69 % (42-75); PLATELET COUNT 344 10^3/uL (130-400); RED CELL DISTRIBUTION WIDTH 13.8 % (10.0-14.5)
[2019-08-08 04:51] LABS: BUN/CREATININE RATIO 12; CALCIUM 8.4 MG/DL (8.5-10.1); CARBON DIOXIDE 21 MMOL/L (21-32); CHLORIDE 108 MMOL/L (98-107); CREATININE SERUM 0.81 MG/DL (0.60-1.30); GFR ESTIMATED > 60; GLUCOSE 88 MG/DL (70-105); PHOSPHORUS 4.1 MG/DL (2.3-4.7); POTASSIUM 3.6 MMOL/L (3.6-5.0); SODIUM 141 MMOL/L (135-145); TRIGLYCERIDES 195 MG/DL (<150)
[2019-08-08] MEDS: predniSONE 20 MG TAB PO SCH (06:37)
[2019-08-08] MEDS ORDERED: diphenhydrAMINE 25 MG TAB (BENADRYL) PO ONE (07:00)
[2019-08-08] MEDS: RT-BUDESONIDE NEBS 0.5 MG/2ML (PULMICORT) AMP INH SCH ×2 (07:31→19:06)
[2019-08-08 08:00] VITALS: BP 120/84
[2019-08-08] MEDS: AZITHROMYCIN 250 MG TAB (ZITHROMAX) PO SCH (08:25)
[2019-08-08] MEDS: risperiDONE 1 MG (RisperDAL) TAB PO SCH ×2 (08:25→20:32)
[2019-08-08] MEDS: ENOXAPARIN 40 MG/0.4 ML (LOVENOX) SYR SC SCH (08:25)
[2019-08-08] MEDS: OSELTAMIVIR 75 MG (TAMIFLU) CAPSULE PO SCH ×2 (08:25→20:32)
[2019-08-08] MEDS: cefTRIAXone FOR IV USE 2,000 MG in WATER (STERILE) FOR INJECTION 20 ML IV SCH (08:25)
--- NOTE | 2019-08-08 09:18 | Occupational Ther Daily Note ---
OT Current Status-Daily Note Subjective Pt seen in bed, pt denies pain. Pt states SOB intermittently. Pt agreeable to OT tx session, denies showering/ toileting. Agreeable to OOB/ tooth brushing/ ther ex. Mental Status/Objective Patient Orientation: Person, Place, Situation Attachments: Hicks Catheter, Oxygen (1L), Telemetry ADL-Treatment Therapy Code Descriptions/Definitions Functional [place] Measure: 0=Not Assessed/NA 4=Minimal Assistance 1=Total Assistance 5=Supervision or Setup 2=Maximal Assistance 6=Modified [place] 3=Moderate Assistance 7=Complete IndependenceSCALE: Activities may be completed with or without assistive devices. 2-Juiepiwvdk-flaagep completes the activity by him/herself with no assistance from a helper. 5-Set-up or Clean-up Assistance-helper sets up or cleans up; patient completes activity. [place] assists only prior to or following the activity. 4-Supervision or Touching Assistance-helper provides verbal cues and/or touching/steadying and/or contact guard assistance as patient completes activity. Assistance may be provided throughout the activity or intermittently. 3-Partial/Moderate Assistance-helper does LESS THAN HALF the effort. [place] lif ts, holds or supports trunk or limbs, but provides less than half the effort. 2-Substantial/Maximal Assistance-helper does MORE THAN HALF the effort. [place] lifts or holds trunk or limbs and provides more than half the effort. 0-Uimoipevt-zwudzr does ALL the effort. Patient does none of the effort to complete the activity. Or, the assistance of 2 or more helpers is required for the patient to complete the activity. If activity was not attempted, code reason: 7-Patient Refused. 9-Not Applicable-not attempted and the patient did not perform the activity before the current illness, exacerbation or injury. 10-Not Attempted due to Environmental Limitations-(lack of equipment, weather restraints, etc.). 88-Not Attempted due to Medical Conditions or Safety Concerns. Eating (QC): 6 Oral Hygiene (QC): 4 (SBA in stance at sink. Use of 2WW) Shower/Bathe Self (QC): 7 Upper Body Dressing (QC): 5 (s/u gown donning.) Lower Body Dressing (QC): 4 (SBA breif donning EOB- pt able to don BLE) Other Treatment Pt completes bed mob with SUP. Completes gown doff/ donning and brief threading EOB with fair balance. Sit to stand and pulls over hips. Pt ambulates with 2WW and CGA to sink, coughs phlegm. Pt completes oral hygiene, returns to bed. Pt denies sittin gin chair, stating he likes having legs elevated/ more comfortable in bed. Pt returns with SBA, completes exercises of yesterday (pt able to r etain), cues for breathing and rest break (3 reps, rest/ breath, complete 2 additional times for 9 reps total). Pt educated on tricep activity and return demonstrates. Pt educated to complete again tonight. Pt agrees. Coffee given to pt per pt request. All needs met, call light in reach. Education OT Patient Education: Correct positioning, Exercise program, Home exercise program, Modified ADL techniques, Progress toward Goal/Update tx plan, Safety issues Teaching Recipient: Patient Teaching Methods: Demonstration, Discussion Response to Teaching: Verbalize Understanding, Return Demonstration OT Short Term Goals Short Term Goals Eatin (met) Oral hygiene: 3 (met) Upper body dressin (met) OT Senior Care Goals Stone Dresser Goals Time Frame: Aug 20, 2019 Eating (QC): 6 Oral Hygiene (QC): 6 Toileting Hygiene (QC): 6 Shower/Bathe Self (QC): 6 Upper Body Dressing (QC): 6 Lower Body Dressing (QC): 6 On/Off Footwear (QC): 6 Additional Goals: 1-Demonstrate ADL Tasks, 2-Verbalize Understanding, 3- ImproveStrength/Meño 1=Demonstrate adherence to instructed precautions during ADL tasks. 2=Patient will verbalize/demonstrate understanding of assistive devices/modifications for ADL. 3=Patient will improve strength/tolerance for activity to enable patient to perform ADL's. OT Education/Plan Problem List/Assessment Assessment: Decreased Activ Tolerance, Decreased UE Strength, Dependent Transfers, Impaired Funct Balance, Impaired I ADL's, Impaired Self-Care Skills Discharge Recommendations Plan/Recommendations: Continue POC Therapy Discharge Recommendati: Scheduled Assistance, Post Acute OT Treatment Plan/Plan of Care Treatment,Training & Education: Yes Patient would benefit from OT for education, treatment and training to promote independence in ADL's, mobility, safety and/or upper extremity function for ADL's. Plan of Care: ADL Retraining, Functional Mobility, UE Funct Exercise/Act Treatment Duration: Aug 20, 2019 Frequency: 5 times per week Estimated Hrs Per Day: .25 hour per day Agreement: Yes Rehab Potential: Good Time/GCodes Start Time: 08:18 Stop Time: 08:43 Total Time Billed (hr/min): 25 Billed Treatment Time 1, ADL 2 (25) JERROD WILLIS OTR Aug 08, 2019 09:17
--- NOTE | 2019-08-08 10:13 | Physical Therapy Daily Note ---
PT Daily Note-Current Subjective No pain but some SOB Appearance Returned to bed with rails up and call light and tray in reach. Mental Status Patient Orientation: Person, Place, Eyes Open Attachments: Oxygen (1 L), Hicks Catheter Transfers SCALE: Activities may be completed with or without assistive devices. 4-Rzhiqoilkf-oathzmz completes the activity by him/herself with no assistance from a helper. 5-Set-up or Clean-up Assistance-helper sets up or cleans up; patient completes activity. [place] assists only prior to or following the activity. 4-Supervision or Touching Assistance-helper provides verbal cues and/or touching/steadying and/or contact guard assistance as patient completes activity. Assistance may be provided throughout the activity or intermittently. 3-Partial/Moderate Assistance-helper does LESS THAN HALF the effort. [place] lifts, holds or supports trunk or limbs, but provides less than half the effort. 2-Substantial/Maximal Assistance-helper does MORE THAN HALF the effort. [place] lifts or holds trunk or limbs and provides more than half the effort. 0-Zdgylymum-cnalrz does ALL the effort. Patient does none of the effort to complete the activity. Or, the assistance of 2 or more helpers is required for the patient to complete the activity. If activity was not attempted, code reason: 7-Patient Refused. 9-Not Applicable-not attempted and the patient did not perform the activity before the current illness, exacerbation or injury. 10-Not Attempted due to Environmental Limitations-(lack of equipment, weather restraints, etc.). 88-Not Attempted due to Medical Conditions or Safety Concerns. Sit to Lying (QC): 5 Lying to Sitting/Side of Bed(Q: 5 Sit to Stand (QC): 4 (SBA) Chair/Czp-bi-Axcmk Xfer(QC): 4 (SBA) Toilet Transfer (QC): 4 (SBA) Gait Training Does the Patient Walk?: Yes Distance: 50 Walk 10 feet (QC): 4 Walk 50 ft with 2 Turns(QC): 4 Walk 150 ft (QC): 88 Gait Assistive Device: FWW CGA with RW. Attempted walking without RW and patient had 1 LOB. In professional opinion of PT patient should go home with RW for safety. Exercises Supine Ex: Ankle pumps Supine Reps: 10 Seated Therapy Exercises: Ankle pumps, Long arc quads Seated Reps: 10 Standing: Mini squats Standing Reps: 10 Assessment Current Status: Good Progress Patient is safe and alert to his surrounding but does have coordination problems when ambulating without device. Patient tolerance to activity has increased. Attempted ambulation without o2 created SOB. O2 reapplied at end of session. PT Halfway Goals Gun Perforator Loader Goals PT Gun Perforator Loader Goals Time Frame: Aug 30, 2019 Roll Left & Right (QC): 6 Sit to Lying (QC): 6 Lying-Sitting on Side/Bed(QC): 6 Sit to Stand (QC): 6 Chair/Gui-zj-Lmbmm Xfer(QC): 6 Toilet Transfer (QC): 6 Does the Patient Walk: Yes Walk 10 feet (QC): 6 Walk 50ft with 2 Turns (QC): 6 Walk 150 ft (QC): 6 PT Plan Problem List Problem List: Activity Tolerance, Functional Strength, Safety, Balance, Gait, Transfer, Bed Mobility Treatment/Plan Treatment Plan: Continue Plan of Care Treatment Plan: Bed Mobility, Education, Functional Activity Meño, Functional Strength, Gait, Safety, Therapeutic Exercise, Transfers Treatment Duration: Aug 30, 2019 Frequency: 5 times per week Estimated Hrs Per Day: .25 hour per day Patient and/or Family Agrees t: Yes Safety Risks/Education Patient Education: Gait Training, Correct Positioning, Safety Issues Teaching Recipient: Patient Teaching Methods: Demonstration, Handout, Discussion, Audiovisual Response to Teaching: Verbalize Understanding, Return Demonstration, Reinforcement Needed Time/GCodes Time In: 0937 Time Out: 1007 Total Billed Treatment Time: 30 Total Billed Treatment 1 visit 2x FA 30' ZANA MAR PT Aug 08, 2019 10:13
[2019-08-08 12:00] VITALS: BP 153/99
--- NOTE | 2019-08-08 12:08 | NUR ---
CM/SS: Pt will discharge on tomorrow to home DME: Pt will need a front wheeled walker Summary: Pt was working with physical therapy and they indicate he could benefit from a front wheeled walker. Pt offer choice and is ok to use the DME associated with the hospital, [facility]. Pt verbally gives permission. Referral sent to [facility]. Height of pt is 5'8" and 148 1/2 lbs. Request for walker to be delivered to hospital today as pt will be tentatively discharged tomorrow.
--- NOTE | 2019-08-08 13:40 | Progress Note ---
Subjective Subjective/Events-last exam Patient is feeling better. He is up walking but has a new need for a walker. Tolerating PO diet. Review of Systems Pulmonary: Dyspnea, Cough Cardiovascular: No: Chest Pain, Palpitations Gastrointestinal: No: Nausea, Vomiting, Abdominal Pain Neurological: Weakness Focused Exam Time of Focused Exam: 10:45 Objective Exam Last Set of Vital Signs Vital Signs Date Time Temp Pulse Resp B/P (MAP) Pulse Ox O2 Delivery O2 Flow Rate FiO2 08/08/19 12:43 138 08/08/19 08:00 37.0 20 120/84 (96) 92 Nasal Cannula 1.00 08/06/19 04:00 25 Capillary Refill : Less Than 3 Seconds I&O Intake and Output 08/08/19 00:00 Intake Total 1430 ml Output Total 2610 ml Balance -1180 ml Intake Oral 1430 ml Output Urine Total 2610 ml # Bowel Movements 1 General: Alert, Oriented X3, No Acute Distress HEENT: Mucous Memb Moist/[place] Lungs: Normal Air Movement, Other (basilar wheezing and normal work of breathing) Heart: Regular Rate, No Murmurs Abdomen: Normal Bowel Sounds, Soft, No Tenderness, No Masses Extremities: No Edema, No Tenderness/Swelling Skin: No Rashes, No Breakdown Neuro: Strength at 5/5 X4 Ext, Sensation Intact, Cranial Nerves 3-12 NL Results/Procedures Lab Laboratory Tests 08/08/19 04:20: White Blood Count 8.0, Red Blood Count 4.11L, Hemoglobin 12.9L, Hematocrit 38L, Mean Corpuscular Volume 93, Mean Corpuscular Hemoglobin 31, Mean Corpuscular Hemoglobin Concent 34, Red Cell Distribution Width 13.8, Platelet Count 344, Mean Platelet Volume 9.7, Neutrophils (%) (Auto) 69, Lymphocytes (%) (Auto) 21, Monocytes (%) (Auto) 10, Eosinophils (%) (Auto) 1, Basophils (%) (Auto) 0, Neutrophils # (Auto) 5.5, Lymphocytes # (Auto) 1.7, Monocytes # (Auto) 0.8, Eosinophils # (Auto) 0.1, Basophils # (Auto) 0.0, Sodium Level 141, Potassium Level 3.6, Chloride Level 108H, Carbon Dioxide Level 21, Anion Gap 12, Blood Urea Nitrogen 10, Creatinine 0.81, Estimat Glomerular Filtration Rate > 60, BUN/Creatinine Ratio 12, Glucose Level 88, Calcium Level 8.4L, Phosphorus Level 4.1, Magnesium Level 2.0, Triglycerides Level 195H Microbiology 08/04/19 Blood Culture - Preliminary, Resulted No growth 08/04/19 Influenza Types A,B Antigen (HENRY) - Final, Complete 08/02/19 Urine Culture - Final, Complete NO GROWTH Assessment/Plan Assessment/Plan (1) Severe sepsis Status: Resolved (2) Acute and chronic respiratory failure Status: Acute Assessment & Plan: 08/03: Dr Villafuerte managing, currently on vent, Rocephin and Azithromyocin, recent Flu A infection 08/04: Patient extubated, continue IV Rocephin and Azithromycin 08/05: Titrated to NC 2 LPM, continue to titrate as tolerated, increase activity and OOB 08/06: Continue to titrate oxygen, Patient may need oxygen at home 08/07: Titrate off oxygen (3) Haemophilus infection Status: Acute (4) COPD (chronic obstructive pulmonary disease) Status: Chronic Assessment & Plan: 08/05: Transitioned to PO steroids Qualifiers: Qualified Codes: J44.9 - Chronic obstructive pulmonary disease, unspecified (5) Metabolic acidosis Status: Resolved (6) Influenza A Status: Acute Assessment & Plan: 08/05: Initial screening in ER was neg, Resp panel returned today with Inf A +, Continue Tamiflu per Dr Villafuerte, Patient back on precautions (7) DVT prophylaxis Status: Acute Assessment & Plan: Lovenox Clinical Quality Measures DVT/VTE Risk/Contraindication: Risk Factor Score Per Nursin RFS Level Per Nursing on Admit: 4+=Very High LOUISE YANG MD Aug 08, 2019 13:40
[2019-08-08 16:30] VITALS: BP_SYST 160; BP_SYST 176; BP_DIAS 86; BP_DIAS 92
[2019-08-08] MEDS: TAMSULOSIN 0.4 MG (FLOMAX) CAP PO SCH (18:04)
[2019-08-08 20:25] VITALS: BP 128/81
[2019-08-09] VITALS (7 sets, daily range): BP systolic 111–152; BP diastolic 73–94
[2019-08-09] MEDS: RT-ALBUTEROL/IPRATROPIUM 3 ML (DUONEB) VIAL INH SCH ×2 (02:22→07:12)
[2019-08-09] MEDS: predniSONE 20 MG TAB PO SCH (04:03)
[2019-08-09 04:39] LABS: BASOPHILS % (AUTO) 0 % (0-10); EOSINOPHILS # (AUTO) 0.1 10^3/uL (0.0-0.3); EOSINOPHILS % (AUTO) 2 % (0-10); HEMATOCRIT 38 % (40-54); HEMOGLOBIN 12.7 G/DL (13.3-17.7); LYMPHOCYTES # (AUTO) 1.8 X 10^3 (1.0-4.0); LYMPHOCYTES % (AUTO) 22 % (12-44); MEAN CORPUSCULAR HEMOGLOBIN 32 PG (25-34); MEAN CORPUSCULAR HGB CONC 34 G/DL (32-36); MEAN CORPUSCULAR VOLUME 94 FL (80-99); MEAN PLATELET VOLUME 9.4 FL (7.4-10.4); MONOCYTES # (AUTO) 0.9 X 10^3 (0.0-1.0); MONOCYTES % (AUTO) 11 % (0-12); NEUTROPHILS # (AUTO) 5.3 X 10^3 (1.8-7.8); NEUTROPHILS % (AUTO) 65 % (42-75); PLATELET COUNT 297 10^3/uL (130-400); RED CELL DISTRIBUTION WIDTH 13.9 % (10.0-14.5); WHITE BLOOD COUNT 8.1 10^3/uL (4.3-11.0)
[2019-08-09 04:53] LABS: BUN/CREATININE RATIO 18; CALCIUM 8.7 MG/DL (8.5-10.1); CARBON DIOXIDE 21 MMOL/L (21-32); CHLORIDE 107 MMOL/L (98-107); CREATININE SERUM 0.77 MG/DL (0.60-1.30); GFR ESTIMATED > 60; GLUCOSE 90 MG/DL (70-105); MAGNESIUM 1.9 MG/DL (1.6-2.4); PHOSPHORUS 3.2 MG/DL (2.3-4.7); POTASSIUM 3.5 MMOL/L (3.6-5.0); SODIUM 139 MMOL/L (135-145)
[2019-08-09] MEDS: RT-BUDESONIDE NEBS 0.5 MG/2ML (PULMICORT) AMP INH SCH (07:13)
[2019-08-09] MEDS: cefTRIAXone FOR IV USE 2,000 MG in WATER (STERILE) FOR INJECTION 20 ML IV SCH (08:39)
[2019-08-09] MEDS: ENOXAPARIN 40 MG/0.4 ML (LOVENOX) SYR SC SCH (08:40)
[2019-08-09] MEDS: OSELTAMIVIR 75 MG (TAMIFLU) CAPSULE PO SCH ×2 (08:40→20:50)
[2019-08-09] MEDS: risperiDONE 1 MG (RisperDAL) TAB PO SCH ×2 (08:40→20:50)
--- NOTE | 2019-08-09 10:00 | NUR ---
PT HR 127 OXYGEN 95% ON RA. DR WYATT NOTIFIED. DR WYATT TO PLACE NEW ORDERS.
[2019-08-09] MEDS ORDERED: RT-ALBUTEROL SULF 2.5 MG/3 ML PRE-MIX VIAL INH PRN (11:00)
[2019-08-09] MEDS ORDERED: PANTOPRAZOLE 40 MG (PROTONIX) VIAL IV ONE (11:15)
--- NOTE | 2019-08-09 11:45 | Progress Note - Hospitalist ---
Subjective HPI/CC On Admission Date Seen by Provider: Aug 09, 2019 Time Seen by Provider: 07:00 this is a 59-year-old white male who presented to the emergency room by private vehicle and respiratory distress. The patient was electively intubated by Dr. Don. The patient had been in extremitas with diffuse diaphoresis. At the time of my interview, the patient is sedated and intubated. He had been discharged last week after a short hospitalization with influenza A. Subjective/Events-last exam Patient reports less shortness of breath but has noted 3 melanotic stools the largest one was the first in the middle of the night he's had 2 more smaller stools not quite as dark. He denies red blood denies past history of peptic ulcer disease or GI bleeding and denies abdominal pain or indigestion. He does have a history of reflux for which she takes omeprazole but had been under control as far as he knew without the need for an antacid therapy. He denies any lightheadedness reports no weakness. His baseline heart rate is been around 100 up until last night he's been in the 120s mildly hypertensive in the 150s over 90s range including this morning. Focused Exam Time of Focused Exam: 10:45 Objective Exam Vital Signs Vital Signs Date Time Temp Pulse Resp B/P (MAP) Pulse Ox O2 Delivery O2 Flow Rate FiO2 08/09/19 08:41 127 95 Room Air 08/09/19 08:00 36.7 20 152/90 (110) 1.00 08/06/19 04:00 25 Capillary Refill : Less Than 3 Seconds General Appearance: No Apparent Distress, Thin Respiratory: No Accessory Muscle Use, No Respiratory Distress, Other (Few fine rales in the left base diminished breath sounds posteriorly with no wheezing or rhonchi) Cardiovascular: No Gallop, No JVD, No Murmur, Tachycardia (Regular) Extremity: Other (Trace edema bilaterally extremities warm) Skin: Pallor (Palms of the hands retain pink coloration as do conjunctiva) Results/Procedures Lab Laboratory Tests 08/09/19 04:10 Patient resulted labs reviewed. Imaging: Reviewed Imaging Films, Reviewed Imaging Report Assessment/Plan Assessment and Plan Assess & Plan/Chief Complaint A/P 1. New onset dark stools description concerning for melena hemoglobin was stable at 3 a.m. when drawn a little over 12 we'll repeat blood counts checked stool for occult blood. The patient is at risk for stress ulceration will initiate empiric pantoprazole 40 mg IV every 12 repeat CBC patient told to notify the nurse that he is feeling weak or lightheaded. Currently hemodynamically stable except for sinus tachycardia. 2. 2 weeks out from initial influenza a diagnosis complicated by pneumonia with acute COPD exacerbation. Respiratory status significantly improved we'll change to when necessary bronchodilator therapy considering lack of wheezing and continue prednisone taper. I'm holding Atrovent for now as the patient has an indwelling Hicks which we are going to remove if he has no difficulty voiding we'll consider the possibility of reinitiation. Clinical Quality Measures DVT/VTE Risk/Contraindication: Risk Factor Score Per Nursin RFS Level Per Nursing on Admit: 4+=Very High SURY WYATT MD Aug 09, 2019 11:45
[2019-08-09 13:25] LABS: HEMOGLOBIN 13.6 G/DL (13.3-17.7); MEAN PLATELET VOLUME 9.6 FL (7.4-10.4); RED CELL DISTRIBUTION WIDTH 13.8 % (10.0-14.5); WHITE BLOOD COUNT 8.8 10^3/uL (4.3-11.0)
[2019-08-09] MEDS: TAMSULOSIN 0.4 MG (FLOMAX) CAP PO SCH (18:00)
--- NOTE | 2019-08-09 18:22 | NUR ---
PT HR CONTINUED TO RUN 120'S THROUGHOUT THE DAY. DR WYATT NOTIFIED VIA PHONE. EKG ORDERED MEDICATIONS CHANGED IN EMAR.
[2019-08-09] MEDS ORDERED: PANTOPRAZOLE 40 MG (PROTONIX) VIAL IV SCH (21:00)
--- NOTE | 2019-08-09 21:00 | NUR ---
PT VOIDING WELL WITH OUT DISCOMFORT. HE IS USING URINAL FOR VOIDING.
[2019-08-09] MEDS: ALPRAZolam 0.5 MG (XANAX) TAB PO PRN (21:39)
[2019-08-09] MEDS ORDERED: NICOTINE 21 MG (NICODERM) PATCH TD SCH (22:00)
--- NOTE | 2019-08-09 22:00 | NUR ---
DR WYATT HAD NO NEW ORDERS AFTER REVIEWING EKG. PT HAS NO C/O CHEST PAIN OR DISCOMFORT.
[2019-08-10 00:07] VITALS: BP 152/81
[2019-08-10 04:31] VITALS: BP 127/86
[2019-08-10] MEDS: ACETAMINOPHEN 500 MG TAB (TYLENOL) PO PRN (04:35)
[2019-08-10 04:48] LABS: BASOPHILS % (AUTO) 0 % (0-10); EOSINOPHILS # (AUTO) 0.2 10^3/uL (0.0-0.3); EOSINOPHILS % (AUTO) 3 % (0-10); HEMATOCRIT 38 % (40-54); HEMOGLOBIN 12.6 G/DL (13.3-17.7); LYMPHOCYTES # (AUTO) 1.8 X 10^3 (1.0-4.0); LYMPHOCYTES % (AUTO) 21 % (12-44); MEAN CORPUSCULAR HEMOGLOBIN 32 PG (25-34); MEAN CORPUSCULAR HGB CONC 34 G/DL (32-36); MEAN CORPUSCULAR VOLUME 94 FL (80-99); MEAN PLATELET VOLUME 9.6 FL (7.4-10.4); MONOCYTES # (AUTO) 0.7 X 10^3 (0.0-1.0); MONOCYTES % (AUTO) 8 % (0-12); NEUTROPHILS # (AUTO) 5.7 X 10^3 (1.8-7.8); NEUTROPHILS % (AUTO) 68 % (42-75); PLATELET COUNT 262 10^3/uL (130-400); RED CELL DISTRIBUTION WIDTH 13.5 % (10.0-14.5); WHITE BLOOD COUNT 8.3 10^3/uL (4.3-11.0)
[2019-08-10 05:08] LABS: BUN/CREATININE RATIO 16; CALCIUM 8.2 MG/DL (8.5-10.1); CARBON DIOXIDE 19 MMOL/L (21-32); CHLORIDE 108 MMOL/L (98-107); CREATININE SERUM 0.81 MG/DL (0.60-1.30); GFR ESTIMATED > 60; GLUCOSE 94 MG/DL (70-105); MAGNESIUM 1.7 MG/DL (1.6-2.4); PHOSPHORUS 3.4 MG/DL (2.3-4.7); POTASSIUM 3.6 MMOL/L (3.6-5.0); SODIUM 139 MMOL/L (135-145)
[2019-08-10] MEDS ORDERED: PANTOPRAZOLE 40 MG (PROTONIX) TAB PO SCH (07:00)
[2019-08-10] MEDS ORDERED: predniSONE 20 MG TAB PO SCH (07:00)
[2019-08-10 08:00] VITALS: BP 140/79
[2019-08-10] MEDS: cefTRIAXone FOR IV USE 2,000 MG in WATER (STERILE) FOR INJECTION 20 ML IV SCH (08:34)
[2019-08-10] MEDS: OSELTAMIVIR 75 MG (TAMIFLU) CAPSULE PO SCH (08:34)
[2019-08-10] MEDS: risperiDONE 1 MG (RisperDAL) TAB PO SCH (08:40)
[2019-08-10 12:00] VITALS: BP 128/64
--- NOTE | 2019-08-10 12:31 | Discharge Summary ---
Diagnosis/Chief Complaint Date of Admission Aug 02, 2019 at 10:36 Date of Discharge Discharge Date: Aug 10, 2019 Admission Diagnosis severe sepsis acute respiratory failure COPD History of influenza A-currently negative Plan pulmonary consult, vent support Primary Care Ramin Monk MD Discharge Summary Discharge Physical Exam Allergies: Coded Allergies: No Known Drug Allergies (Unverified , 07/04/11) Vitals & I&Os Vital Signs Date Time Temp Pulse Resp B/P (MAP) Pulse Ox O2 Delivery O2 Flow Rate FiO2 08/10/19 12:00 36.3 114 20 128/64 (85) 94 Room Air 08/09/19 12:00 1.00 08/06/19 04:00 25 General Appearance: No Apparent Distress, Thin Respiratory: Chest Non Tender, Lungs Clear, Normal Breath Sounds, No Accessory Muscle Use, No Respiratory Distress Cardiovascular: Regular Rate, Rhythm, No Edema, No Gallop, No JVD, No Murmur, Normal Peripheral Pulses Extremity: Normal Inspection, Normal Range of Motion, Non Tender, No Pedal Edema Hospital Course Was the Problem List Reviewed?: Yes The patient is a 59-year-old white male with poorly known COPD secondary to tobaccoism who presented to the emergency room in respiratory distress. He had a history of recent hospitalization for influenza A but within a day or 2 of discharge started to get more short of breath. I believe he did have evidence for left lower lobe infiltrate and respiratory distress did require short-term mechanical intubation. A azithromycin and Rocephin were initiated with negative cultures. Patient had slow improvement with return to O2 saturations greater than 90 percent on room air. On the morning this discharge he was down to 30 mg of prednisone with a clear chest and chest x-ray revealing no evidence for i nfiltrate on the . Discussed the importance of maintaining abstinence from smoking and he was doing well on a nicotine patch reporting the expected to comply with smoking abstinence and was surprised by the fact he wasn't having significant cravings. He will continue his home medications and a short course of prednisone 20 mg for 2 days 10 mg for 2 days then off. He did not receive any bronchodilator therapy on the day of his admission for little over 24 hours with no return of wheezing or complaints of shortness of breath. He was advised to call [facility] for follow-up appointments but this probably should be delayed in this patient is long as he is doing well until after coronavirus concerns in our area have subsided. Discussed the importance of social distancing. Labs (last 24 hrs) Laboratory Tests 08/09/19 13:15: White Blood Count 8.8, Red Blood Count 4.29L, Hemoglobin 13.6, Hematocrit 40, Mean Corpuscular Volume 93, Mean Corpuscular Hemoglobin 32, Mean Corpuscular Hemoglobin Concent 34, Red Cell Distribution Width 13.8, Platelet Count 311, Mean Platelet Volume 9.6 08/09/19 13:40: Stool Occult Blood Immunoassay NEGATIVE 08/10/19 04:40: White Blood Count 8.3, Red Blood Count 4.00L, Hemoglobin 12.6L, Hematocrit 38L, Mean Corpuscular Volume 94, Mean Corpuscular Hemoglobin 32, Mean Corpuscular Hemoglobin Concent 34, Red Cell Distribution Width 13.5, Platelet Count 262, Mean Platelet Volume 9.6, Neutrophils (%) (Auto) 68, Lymphocytes (%) (Auto) 21, Monocytes (%) (Auto) 8, Eosinophils (%) (Auto) 3, Basophils (%) (Auto) 0, Neutrophils # (Auto) 5.7, Lymphocytes # (Auto) 1.8, Monocytes # (Auto) 0.7, Eosinophils # (Auto) 0.2, Basophils # (Auto) 0.0, Sodium Level 139, Potassium Level 3.6, Chloride Level 108H, Carbon Dioxide Level 19L, Anion Gap 12, Blood Urea Nitrogen 13, Creatinine 0.81, Estimat Glomerular Filtration Rate > 60, BUN/Creatinine Ratio 16, Glucose Level 94, Calcium Level 8.2L, Phosphorus Level 3.4, Magnesium Level 1.7, Thyroid Stimulating Hormone (TSH) 1.92 Microbiology 08/04/19 Blood Culture - Final, Complete No growth 08/04/19 Influenza Types A,B Antigen ([facility]ENRY) - Final, Complete 08/02/19 Urine Culture - Final, Complete NO GROWTH Patient resulted labs reviewed. Pending Labs Laboratory Tests 08/10/19 04:40: White Blood Count 8.3, Red Blood Count 4.00, Hemoglobin 12.6, Hematocrit 38, Mean Corpuscular Volume 94, Mean Corpuscular Hemoglobin 32, Mean Corpuscular Hemoglobin Concent 34, Red Cell Distribution Width 13.5, Platelet Count 262, Angie n Platelet Volume 9.6, Neutrophils (%) (Auto) 68, Lymphocytes (%) (Auto) 21, Monocytes (%) (Auto) 8, Eosinophils (%) (Auto) 3, Basophils (%) (Auto) 0, Neutrophils # (Auto) 5.7, Lymphocytes # (Auto) 1.8, Monocytes # (Auto) 0.7, Eosinophils # (Auto) 0.2, Basophils # (Auto) 0.0, Sodium Level 139, Potassium Level 3.6, Chloride Level 108, Carbon Dioxide Level 19, Anion Gap 12, Blood Urea Nitrogen 13, Creatinine 0.81, Estimat Glomerular Filtration Rate > 60, BUN/Creatinine Ratio 16, Glucose Level 94, Calcium Level 8.2, Phosphorus Level 3.4, Magnesium Level 1.7, Thyroid Stimulating Hormone (TSH) 1.92 Imaging: Reviewed Imaging Films, Reviewed Imaging Report Discussion & Recommendations Discharge Planning: >30 minutes discharge planning Discharge Home Medications: Active Scripts Active Prednisone 10 Mg Tab.ds.pk 10 Mg PO DAILY Take 6 tabs(60mg)daily,decrease by 1 tab(10MG)daily. Nicoderm Cq (Nicotine) 1 Each Patch.td24 21 Mg TD DAILY Reported Ibuprofen 200 Mg Tablet 400 Mg PO Q8H PRN Omeprazole 20 Mg Capsule.dr 20 Mg PO DAILY Seroquel (Quetiapine Fumarate) 300 Mg Tablet 300 Mg PO BID Combigan Eye Drops (Brimonidine Tartrate/Timolol) 5 Ml Drops 1 Drop OU BID Trazodone HCl 100 Mg Tablet 50-100 Mg PO HS Sertraline HCl 100 Mg Tablet 200 Mg PO HS Hydroxyzine Pamoate 50 Mg Capsule 50 Mg PO DAILY PRN Instructions to patient/family Please see electronic discharge instructions given to patient. Clinical Quality Measures DVT/VTE Risk/Contraindication: Risk Factor Score Per Nursin RFS Level Per Nursing on Admit: 4+=Very High Copy Copies To 1: RAMIN MONK MD, MARK D MD Aug 10, 2019 12:31
[2019-08-10 15:08] VITALS: BP 128/64
== END 2019-08-10 15:08 | disposition home or self-care (01) | DRG 871 ==
LOC: EDUNIT# 09:21 → ER 09:22 → ICU 10:36 → 4TH 08-06 12:35
PROVIDERS: ADMIT Internal Medicine; ATTEND Internal Medicine
PROC: 5A1945Z Respiratory Ventilation, 24-96 Consecutive Hours (ICD-10-PCS; principal; 2019-08-02)
PROC: 0BH17EZ Insertion of Endotracheal Airway into Trachea, Via Natural or Artificial Opening (ICD-10-PCS; 2019-08-02)
DX: A41.3 Sepsis due to Hemophilus influenzae (principal); R65.20 Severe sepsis without septic shock; J96.20 Acute and chronic respiratory failure, unspecified whether with hypoxia or hypercapnia; E87.2 Acidosis; J44.9 Chronic obstructive pulmonary disease, unspecified; F17.210 Nicotine dependence, cigarettes, uncomplicated; I10 Essential (primary) hypertension; E78.00 Pure hypercholesterolemia, unspecified; F41.9 Anxiety disorder, unspecified; F32.9 Major depressive disorder, single episode, unspecified; E66.9 Obesity, unspecified; Z91.5 Personal history of self-harm; K21.9 Gastro-esophageal reflux disease without esophagitis
CPT/HCPCS: 36415; 36569; 36600; 51702; 71045; 76937; 80048; 80053; 81000; 82274; 82805; 82962; 83605; 83735; 83880; 84100; 84145; 84443; 84478; 84484; 85007; 85025; 85027; 85610; 85730; 87040; 87070; 87077; 87081; 87088; 87185; 87186; 87205; 87631; 87804; 93005; 93041; 94002; 94003; 94640; 94760; 94799; 96361; 96365; 96366; 96375